=== PATIENT | female | born 1960 | race Caucasian/White ===

== ENCOUNTER → 2020-08-05 15:21 | Outpatient (CLI) | payer OTHER, SELFPAY ==
[2020-08-05 16:02] LABS: Basophils # 0.1 K/mm3 (0-0.2); Basophils % 0.5 % (0.1-2.0); Eosinophils # 0.2 K/mm3 (0.0-0.4); Eosinophils % 1.4 % (0.1-12.0); Hematocrit 50.3 % (37.0-47.0); Hemoglobin 16.1 g/dL (12.2-16.2); Lymphocytes % 27.1 % (10-50); Mean Corpuscular Hemoglobin 31.1 pg (27.0-31.2); Mean Corpuscular Volume 97.1 fl (81-99); Mean Platelet Volume 9.1 fl (7.4-10.4); Monocytes # 0.6 K/mm3 (0.1-1.0); Monocytes % 5.4 % (1.7-9.3); Neutrophils # 7.2 K/mm3 (1.8-7.8); Neutrophils % 65.6 % (37.0-80.0); Platelet Count 355 K/mm3 (142-424); Red Blood Count 5.17 M/mm3 (4.20-5.40); Red Cell Distribution Width 13.9 % (11.5-17.5); White Blood Count 10.9 K/mm3 (4.8-10.8)
[2020-08-05 16:15] LABS: Alanine Aminotransferase 30 U/L (12-78); Albumin Level 4.2 g/dl (3.5-5.0); Albumin/Globulin Ratio 1.4 (1.1-1.8); Alkaline Phosphatase 93 U/L (38-126); Anion Gap 14.5 mEq/L (5-15); Aspartate Amino Transferase 31 U/L (14-36); Bilirubin,Total 0.8 mg/dl (0.2-1.3); Blood Urea Nitrogen 23 mg/dl (7-17); Calcium 9.9 mg/dl (8.4-10.2); Carbon Dioxide 29 mmol/L (22.0-30.0); Chloride 99 mmol/L (98-107); Chol/HDL Ratio 4.8 (1-3.5); Cholesterol 275 mg/dl (140-200); Estimated Glomerular Filt Rate 86 ml/min (>60); GFR (African American) 104 ML/MIN (>60); Glucose 156 mg/dl (74-100); HDL Cholesterol 57 mg/dl (40-60); Potassium 4.5 mmoL/L (3.5-5.1); Sodium 138 mmol/L (136-145); Total Protein,Serum 7.2 g/dl (6.3-8.2); Triglycerides 371 mg/dl (30-150); VLDL Cholesterol 74 mg/dL (0-40)
[2020-08-05 16:26] LABS: Direct LDL Cholesterol 167.28 mg/dL (100-129)
[2020-08-05 16:31] LABS: 25-OH Vitamin D, Total 23.3 ng/mL (30-100)
[2020-08-05 16:32] LABS: T4 (Thyroxine) 11.3 ug/dl (5.53-11.0)
[2020-08-05 16:46] LABS: Thyroid Stimulating Hormone 2.86 uIU/mL (0.465-4.68)
[2020-08-05 17:22] LABS: Creatinine,Urine Random 116 mg/dL (Not Estab.)
[2020-08-05 17:25] LABS: Microalbumin/Creatinine Ratio 15.7
[2020-08-05 17:46] LABS: Hemoglobin A1C 7.8 % (4.0-6.0)
== END ==
PROVIDERS: Visit Provider Physician Assistant
DX: E11.9 Type 2 diabetes mellitus without complications (principal); Z76.89 Persons encountering health services in other specified circumstances; E55.9 Vitamin D deficiency, unspecified; Z79.84 Long term (current) use of oral hypoglycemic drugs; Z79.899 Other long term (current) drug therapy
CPT/HCPCS: 80053; 80061; 82043; 82306; 82570; 83036; 84436; 84443; 85025

== ENCOUNTER 2020-10-27 13:40 | Emergency (ER) | payer OTHER, MEDICAID, SELFPAY ==
[2020-10-27 14:09] VITALS: BP 137/79; PULSE 82; RESP 19; TEMP 37; O2SAT 98; BMI 37.8
--- NOTE | 2020-10-27 14:12 | CA_ITS ---
APPROVED REPORT Right Lower Extremity Venous Study for Venous Competence., DVT. Commercial Fisher: ISAAK Indications Lower Extremity Pain: to rule out dvt, PAIN IN RIGHT LATERAL THIGH Findings Color flow duplex of the right lower extremity demonstrates no evidence of superficial venous thrombophlebitis. All visualized right lower extremity veins are clear and compressible. Negative for DVT Conclusion Color flow duplex of the right lower extremity demonstrates no evidence of superficial venous thrombophlebitis. All visualized right lower extremity veins are clear and compressible. Negative for DVT Electronically signed by : Patrice Ball MD 10/27/2020 18:16:59
--- NOTE | 2020-10-27 14:12 | HMH.EDUTC ---
[facility] [place]ression: Leg pain Qualifiers: Laterality: right Qualified Code(s): M79.604 - Pain in right leg Disposition: Home, Self-Care Condition on Discharge: Good Instructions: DI for Leg Pain Additional Instructions: Make sure to follow up with your family Doctor for further evaluation and examination Return if needed Straight to ER if any life threatening symptoms Referrals: Marilyn Rao PA [Primary Care Provider] - As needed Time of Disposition: 15:13 Medical Decision Making - Arvind Inquiry Pt receiving controlled substance: No Arvind was queried for this patient: No Vital Signs: 10/27/20 14:09 Temperature 98.6 F Temperature Source Oral Pulse Rate [Right] 82 Respiratory Rate 19 Blood Pressure [Right Arm] 137/79 Blood Pressure Mean [Right Arm] 98 Blood Pressure Source [Right Arm] Automatic Cuff Blood Pressure Position [Right Arm] Sitting 02 Sat by Pulse Oximetry 98 Oxygen Delivery Method Room Air Orders (Tests/Meds): ORDERS Category Date Time Status CA venous doppler LE RT Stat Y 10/27/20 14:12 Ordered - US Data US Images: Lower Extremity ED US Reviewed: Yes: I have reviewed the patient's US results Preliminary Findings: Normal/NAD Findings Narrative: Negative for DVT negative for Superficial Venous Thrombophlebitis Medical Decision Narrative: Patient denies low back pain or any known injury does have some spider veins noted in right upper leg recommended follow up with patient PCP if symptoms continued and patient agreed Denies known injury [facility] [place] - General Stated complaint: Right leg pain Time Seen by Provider: 10/27/20 14:14 Mode of Arrival: Ambulatory Source of Information: Patient Limitations: No Limitations Description of Symptoms (Recalled from Triage Doc. by RN): pt states my right upper leg has a curning, tingling sensatoin off and on for four days. HEENT Symptoms (Recalled from RN notes): No Resp Symptoms (Recalled from RN notes): No Skin Symptoms (Recalled from RN notes): No MS Symptoms (Recalled from RN notes): Yes (upper right leg is having a burning and tingling sensation) Functional Status (Recalled from RN notes): na - History of Present Illness Provider Complaint: Patient states for the last 3-4 days she has been having a burning like pain with sharp electrical like pain in the side of right upper leg States that it has been hurting on and off and she was worried that she may have a blood clot so she came in to get it checked Patient denies back pain - Related Data Home Medications Medication Instructions Recorded Confirmed sumatriptan succinate 50 mg tablet 50 mg PO Q2H PRN 08/05/20 09/09/20 Previous Rx's Medication Instructions Recorded aspirin 81 mg tablet,delayed 81 mg PO DAILY #90 tab 08/05/20 release lisinopril 10 mg tablet 10 mg PO DAILY #90 tab 08/05/20 metformin 500 mg tablet 500 mg PO BID #180 tab 08/05/20 simvastatin 10 mg tablet 10 mg PO DAILY #90 tab 08/05/20 ergocalciferol (vitamin D2) 1,250 1,250 mcg PO WEEKLY #4 cap 08/06/20 mcg (50,000 unit) capsule blood sugar diagnostic See Rx Instructions .ROUTE 08/14/20 .MEDSUPPLY #100 each blood-glucose meter See Rx Instructions .ROUTE 08/14/20 .MEDSUPPLY #1 each azithromycin 250 mg tablet 250 mg PO QDAY 5 Days #6 tab 09/09/20 fluticasone propionate 50 1 spray INTRANASAL QDAY #15 ml 09/09/20 mcg/actuation nasal spray,suspension rimegepant 75 mg disintegrating 75 mg PO ONCE #8 tab 10/20/20 tablet Allergies Allergy/AdvReac Type Severity Reaction Status Date / Time No Known Allergies Allergy Verified 10/27/20 14:12 - Worker's Comp Is this a Worker's Comp case?: No [facility] History - Hepatitis A Screen Drug use history?: No High risk sexual behaviors?: No History of sexually transmitted infection?: No Currently employed?: No Childcare worker?: No Do you have indoor plumbing?: Yes Do you have electricity?: Yes Attestation statement::
[2020-10-27 15:15] VITALS: BP 132/80; PULSE 80; RESP 17; TEMP 36.6
== END 2020-10-27 15:15 | disposition home or self-care (01) ==
PROVIDERS: Emergency Provider Nurse Practitioner; PCP Physician Assistant
DX: M79.604 Pain in right leg (principal); E11.9 Type 2 diabetes mellitus without complications; I10 Essential (primary) hypertension; E78.5 Hyperlipidemia, unspecified; G43.909 Migraine, unspecified, not intractable, without status migrainosus; Z79.899 Other long term (current) drug therapy
CPT/HCPCS: 93971; 99202; G0463

== ENCOUNTER → 2020-12-14 13:29 | Outpatient (CLI) | payer OTHER, MEDICAID, SELFPAY ==
--- NOTE | 2020-12-14 13:32 | XR_ITS ---
PROCEDURE: XR HAND RT MIN 3V CLINICAL INDICATION: RT thumb pain COMPARISON: No exams were available for comparison FINDINGS: No fracture or dislocation. No lytic or blastic change. There is normal mineralization. The joint spaces are well-preserved. No significant degenerative/arthritic changes. No erosive changes evident. Other findings:None. IMPRESSION: No acute findings. Dictated by: Patrice Ball MD 12/14/2020 14:14 Patrice Ball MD in [place] 12/14/2020 14:14
--- NOTE | 2020-12-14 13:32 | XR_ITS ---
PROCEDURE: XR HAND LT MIN 3V CLINICAL INDICATION: RT thumb pain COMPARISON: No exams were available for comparison FINDINGS: No fracture or dislocation. No lytic or blastic change. There is normal mineralization. Minimal osteoarthritic changes are present at the 1st metacarpal-carpal joint.. Other findings:None. IMPRESSION: Minimal osteoarthritic change 1st metacarpal-carpal joint otherwise negative Dictated by: Patrice Ball MD 12/14/2020 14:15 Patrice Ball MD in [place] 12/14/2020 14:15
== END ==
PROVIDERS: PCP Physician Assistant; Visit Provider Orthopaedic Surgery
DX: M79.645 Pain in left finger(s) (principal); M79.644 Pain in right finger(s)
CPT/HCPCS: 73130

== ENCOUNTER 2020-12-28 13:34 | Emergency (ER) | payer OTHER, SELFPAY ==
[2020-12-28 13:34] VITALS: BP 146/74; PULSE 95; RESP 16; TEMP 36.8; O2SAT 98; BMI 35.2
--- NOTE | 2020-12-28 13:40 | XR_ITS ---
PROCEDURE: XR HIP LT 2-3V W/PELVIS CLINICAL INDICATION: fall Pain COMPARISON: No exams were available for comparison FINDINGS: No fracture or dislocation. Small lucency is present along the superior aspect of the left femoral neck toward the intertrochanteric region. This measures approximately 12 x 3 mm and may be due to an area of sparse bony trabeculation. Surgical clips are present in the central pelvic region overlying the left iliac fossa and in the right pelvic area. Small well-circumscribed areas of calcification present along the greater trochanter nonspecific and may be due to areas of ununited ossification centers. IMPRESSION: No acute finding. Dictated by: Patrice Ball MD 12/28/2020 15:12 Patrice Ball MD in [place] 12/28/2020 15:12
--- NOTE | 2020-12-28 13:40 | XR_ITS ---
PROCEDURE: XR ELBOW LT MIN 3V Left humerus. Left shoulder CLINICAL INDICATION: fall COMPARISON: CR XR HUMERUS LT from 12/28/2020 CR XR SHOULDER LT MIN 2V from 12/28/2020 FINDINGS: Left elbow: No acute fracture or dislocation. Small calcific densities are present along the medial epicondyle region well-circumscribed consistent old injuries or ununited ossification centers. Left humerus: No acute fracture or dislocation. Subacromial stenosis with some bony hypertrophy the greater tuberosity. Left shoulder: Mild osteoarthritic changes of the glenohumeral joint with slightly high-riding humeral head and with subacromial stenosis which may result in impingement symptomatology and rotator pathology. No acute fracture or dislocation. IMPRESSION: Degenerative changes, no acute finding.. Dictated by: Patrice Ball MD 12/28/2020 15:07 Patrice Ball MD in [place] 12/28/2020 15:07
--- NOTE | 2020-12-28 13:40 | XR_ITS ---
PROCEDURE: XR WRIST LT MIN 3V CLINICAL INDICATION: fall Pain COMPARISON: No exams were available for comparison FINDINGS: No fracture or dislocation. No lytic or blastic change. There is normal mineralization. The joint spaces are well-preserved. No significant degenerative/arthritic changes. No erosive changes evident. Other findings:None. IMPRESSION: No acute findings. Dictated by: Patrice Ball MD 12/28/2020 15:08 Patrice Ball MD in [place] 12/28/2020 15:08
--- NOTE | 2020-12-28 13:42 | PC.NURSE ---
Called lab for masood comp drug screen
--- NOTE | 2020-12-28 13:43 | PC.NURSE ---
pt had small wound on left elbow. c;eaned and bleeding controlled
--- NOTE | 2020-12-28 16:53 | HMH.EDFALL ---
ED Disposition Clinical Impression: Fall Disposition: Home, Self-Care Condition on Discharge: Fair Instructions: How to Prevent Falls Additional Instructions: Check elbows wrist shoulder humerus and hip x-rays and they are all within normal limits does not show any fracture you could have a sprain which will not be seen in x-rays Prescriptions: Cyclobenzaprine HCl [Cyclobenzaprine 7.5mg Tab] 7.5 mg PO TID #15 tab Transmission Status: Pending to [facility] methylPREDNISolone [Medrol 4mg tab] 4 mg PO DIRECTED #21 tab Transmission Status: Pending to [facility] Referrals: Provider,Referral, [Primary Care Provider] - Forms: Work/School Release Time of Disposition: 17:02 - Critical Care Critical Care Time: No Attestation: On 12/28/20, the high probability of a clinically significant, sudden or life threatening deterioration of the following system(s) required my full and direct attention, intervention and personal management. The time I documented below is in addition to time spent performing reported procedures but includes the following listed in this critical care notation. Medical Decision Making - Medical Records Medical records reviewed: Yes: I reviewed the patient's medical records. MR Comment: Reviewed patient's x-rays and x-rays of the elbow wrist shoulder humerus and hip are all within normal limits; is to discharge patient home with anti-inflammatory medications - Arvind Inquiry Pt receiving controlled substance: No Vital Signs: 12/28/20 13:34 Temperature 98.2 F Temperature Source Oral Pulse Rate [Right] 95 H Respiratory Rate 16 Blood Pressure [Right Arm] 146/74 H Blood Pressure Mean [Right Arm] 98 Blood Pressure Source [Right Arm] Automatic Cuff Blood Pressure Position [Right Arm] Sitting 02 Sat by Pulse Oximetry 98 Oxygen Delivery Method Room Air Fall HPI - General Chief Complaint: Fall Stated Complaint: fall Time Seen by Provider: 12/28/20 13:53 Mode of Arrival: Wheelchair Source of Information: Patient Limitations: No Limitations Description of Symptoms (Recalled from ER Triage Doc. by RN): pt was walking down the cuadra to go to the restroom when she slipped on wer floor and fell onto her left side. Pt c/o pain in the left shoulder/elbow/wrist and left hip. Denies any neck/head pain. Denies any LOC - History of Present Illness HPI Narrative: pt is an employee and was walking down the cuadra to go to the restroom when she slipped on wer floor and fell onto her left side. Pt c/o pain in the left shoulder/elbow/wrist and left hip. Denies any neck/head pain. Denies any LOC Onset (ago): minute(s) Fall from: standing Fall witnessed: no Place fall occurred: work Loss of consciousness: none Prolonged down time: no Symptoms prior to fall: none Context: tripped/slipped Location of injury: other (left elbow, wrist, Shoulder arm hip) Location of injury - extremities: Left: shoulder, arm, elbow Severity: moderate Severity scale (1-10): 4 Quality: sharp - Related Data Home Medications Medication Instructions Recorded Confirmed sumatriptan succinate 50 mg tablet 50 mg PO Q2H PRN 08/05/20 09/09/20 Previous Rx's Medication Instructions Recorded aspirin 81 mg tablet,delayed 81 mg PO DAILY #90 tab 08/05/20 release lisinopril 10 mg tablet 10 mg PO DAILY #90 tab 08/05/20 metformin 500 mg tablet 500 mg PO BID #180 tab 08/05/20 simvastatin 10 mg tablet 10 mg PO DAILY #90 tab 08/05/20 ergocalciferol (vitamin D2) 1,250 1,250 mcg PO WEEKLY #4 cap 08/06/20 mcg (50,000 unit) capsule blood sugar diagnostic See Rx Instructions .ROUTE 08/14/20 .MEDSUPPLY #100 each blood-glucose meter See Rx Instructions .ROUTE 08/14/20 .MEDSUPPLY #1 each azithromycin 250 mg tablet 250 mg PO QDAY 5 Days #6 tab 09/09/20 fluticasone propionate 50 1 spray INTRANASAL QDAY #15 ml 09/09/20 mcg/actuation nasal spray,suspension rimegepant 75 mg disintegrating 75 mg PO ONCE #8
--- NOTE | 2020-12-28 17:37 | PC.NURSE ---
prescriptions called into clinic pharmacy per pt request. while calling prescriptions pharmacist states they do not have flexeril 7.5mg tablets, notified ER MD of this. States to give pt flexeril 10 mg po 1 tablet TID #15 tablets, no refills.
[2020-12-28 17:46] VITALS: BP 149/75; PULSE 80; RESP 18; TEMP 36.8; O2SAT 99
== END 2020-12-28 17:44 | disposition home or self-care (01) ==
PROVIDERS: Emergency Provider Emergency Medicine
DX: S50.02XA Contusion of left elbow, initial encounter (principal); S40.012A Contusion of left shoulder, initial encounter; S70.02XA Contusion of left hip, initial encounter; W01.0XXA Fall on same level from slipping, tripping and stumbling without subsequent striking against object, initial encounter; Y92.69 Other specified industrial and construction area as the place of occurrence of the external cause; Y99.0 Civilian activity done for income or pay
CPT/HCPCS: 73030; 73060; 73080; 73110; 73502; 96372; 99282; J1040

== ENCOUNTER 2021-01-08 10:38 | Outpatient (RCR) | payer OTHER, SELFPAY | END 2021-01-08 11:24 | disposition home or self-care (01) | LOC: OT 10:38 | PROVIDERS: Visit Provider Orthopaedic Surgery | DX: M18.11 Unilateral primary osteoarthritis of first carpometacarpal joint, right hand (principal); M79.645 Pain in left finger(s); M79.644 Pain in right finger(s) | CPT/HCPCS: 97760 ==

== ENCOUNTER 2021-04-02 05:23 | Emergency (ER) | payer OTHER, MEDICAID, SELFPAY ==
[2021-04-02 05:34] VITALS: BP 143/76; PULSE 93; RESP 20; TEMP 37.8; O2SAT 97; BMI 39.4
--- NOTE | 2021-04-02 05:39 | HMH.EDGENADL ---
ED Disposition Clinical Impression: COVID-19 Disposition: Home, Self-Care Condition on Discharge: Good Instructions: DI for COVID-19 (Suspected or Confirmed ) Additional Instructions: Tylenol as needed for pain or fever. Off work for 10 days. Quarantine yourself. You are in a high risk group because of your diabetes and therefore you are a candidate for monoclonal antibody therapy. Contact your primary care provider to discuss monoclonal antibody therapy. Return to the emergency department if shortness of breath, extreme weakness, intractable vomiting. Prescriptions: Amoxicillin/Potassium Clav [Augmentin 875-125 Tablet] 1 tab PO Q12H #20 tab Transmission Status: Received by [facility] Referrals: Marilyn Rao PA [Primary Care Provider] - - Critical Care Critical Care Time: No Attestation: On , the high probability of a clinically significant, sudden or life threatening deterioration of the following system(s) required my full and direct attention, intervention and personal management. The time I documented below is in addition to time spent performing reported procedures but includes the following listed in this critical care notation. Medical Decision Making - Arvind Inquiry Pt receiving controlled substance: No Vital Signs: 04/02/21 05:34 Temperature 100.1 F H Temperature Source Oral Pulse Rate [Right] 93 H Respiratory Rate 20 Blood Pressure [Left Arm] 143/76 H Blood Pressure Mean [Left Arm] 98 Blood Pressure Source [Left Arm] Automatic Cuff Blood Pressure Position [Left Arm] Sitting 02 Sat by Pulse Oximetry 97 Oxygen Delivery Method Room Air - Lab Data Lab Results 04/02/21 05:35: SARS-CoV-2 (PCR) Detected A, Influenza A Untype (PCR) Not detected, Influenza Type B (PCR) Not detected Orders (Tests/Meds): ED MEDICATIONS Discontinued Medications Generic Name Dose Route Start Last Admin Trade Name Freq PRN Reason Stop Dose Admin Amoxicillin/Clavulanate Potassium 1 each 04/02/21 05:48 04/02/21 05:55 Amoxicillin/Pot Clavulan 500mg Tablet PO 04/02/21 05:49 1 each ONCE ONE Administration Protocol Medical Decision Narrative: Augmentin was transmitted to the patient's pharmacy, but her Covid test has returned positive and therefore I feel her symptoms are related to COVID-19 infection, I have advised her she does not need antibiotics. General Adult HPI - General Stated complaint: Earache,sinus pressure,nose bleeding,PEREZ Time Seen by Provider: 04/02/21 05:39 - History of Present Illness HPI narrative: Works in [employer] here. States that she has a sinus infection. 3-day history of sinus pain and pressure, drainage, right earache, nosebleed. Low-grade fever today. No known exposure to COVID-19. She has not been vaccinated against COVID-19 and has not had COVID-19. 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 She has a history of recurrent sinus infections and sinus surgery 2 years ago in [place]. - Related Data Previous Rx's Medication Instructions Recorded aspirin 81 mg tablet,delayed 81 mg PO DAILY #90 tab 08/05/20 release metformin 500 mg tablet 500 mg PO BID #180 tab 08/05/20 simvastatin 10 mg tablet 10 mg PO DAILY #90 tab 08/05/20 blood sugar diagnostic See Rx Instructions .ROUTE 08/14/20 .MEDSUPPLY #100 each blood-glucose meter See Rx Instructions .ROUTE 08/14/20 .MEDSUPPLY #1 each fluticasone propionate 50 1 spray INTRANASAL QDAY #15 ml 09/09/20 mcg/actuation nasal spray,suspension rimegepant 75 mg disintegrating 75 mg PO ONCE #8 tab 10/20/20 tablet ergocalciferol (vitamin D2) 1,250 50,000 unit PO QWEEK 90 Days #14 02/24/21 mcg (50,000 unit) capsule cap methylprednisolone 4 mg tablets in 4 mg PO PER PKG DIR 6 Days #21 tab 02/24/21 a dose pack lisinopril 10 mg tablet See Rx Instructions .ROUTE 03/04/21 .COMPLEX #90 tab Amoxicillin/Potassium Clav 1 tab
[2021-04-02 05:55] LABS: Influenza A, PCR Not Detected (NotDetected); Influenza B, PCR Not Detected (NotDetected)
[2021-04-02 06:17] LABS: Coronavirus 19, PCR Detected (NotDetected)
--- NOTE | 2021-04-02 06:25 | PC.NURSE ---
Positive COVID test called from [facility] in Lab, results given to Dr García
[2021-04-02 06:40] VITALS: BP 142/68; PULSE 94; RESP 22; TEMP 37.8; O2SAT 94
== END 2021-04-02 06:44 | disposition home or self-care (01) ==
LOC: ER 05:58
PROVIDERS: Emergency Provider Emergency Medicine; PCP Physician Assistant
DX: U07.1 COVID-19 (principal); E11.9 Type 2 diabetes mellitus without complications; Z79.899 Other long term (current) drug therapy
CPT/HCPCS: 99282; U0003

== ENCOUNTER 2021-04-09 08:07 | Outpatient (CLI) | payer OTHER, MEDICAID, SELFPAY ==
[2021-04-09 08:45] VITALS: BP 105/65; PULSE 89; RESP 16; TEMP 36.9; O2SAT 94
[2021-04-09 10:21] VITALS: BP 128/68; PULSE 85; RESP 16; TEMP 37.1; O2SAT 91
[2021-04-09 10:23] VITALS: BP 128/65; PULSE 85; RESP 16; TEMP 37.1; O2SAT 91
== END 2021-04-09 10:23 | disposition home or self-care (01) ==
PROVIDERS: PCP Physician Assistant; Visit Provider Physician Assistant
DX: U07.1 COVID-19 (principal)
CPT/HCPCS: 96365

== ENCOUNTER → 2021-04-29 10:41 | Outpatient (CLI) | payer OTHER, MEDICAID, SELFPAY ==
--- NOTE | 2021-04-29 10:42 | IR_ITS ---
PROCEDURE: IR FLUORO GUIDED NEEDLE PLACE CLINICAL INDICATION: RT 1ST CMC joint injection COMPARISON: CR XR WRIST LT MIN 3V from 12/28/2020 FINDINGS: Fluoroscopy time: 23 seconds Single image submitted with fluoroscopic image shows a needle present from the lateral approach overlying the 1st metacarpal-carpal junction IMPRESSION: S/p joint injection with fluoroscopic guidance Dictated by: Patrice Ball MD 04/29/2021 16:01 Patrice Ball MD in [place] 04/29/2021 16:01
--- NOTE | 2021-04-29 15:50 | P.PCN_ITS ---
[facility] Procedure Note Procedure Note:: Date of procedure: 04/29/2021 Patient was initially scheduled to have right first CMC joint injection under fluoroscopic guidance. However, today she also requested for repeat steroid injection to the de Quervain's tendon sheath. I have discussed the pros and cons of steroid injections. Patient previously had an in office injection and is aware of the risks involved. Patient is appropriately consented for the procedures. Preprocedure diagnosis: 1. First CMC joint arthritis, right wrist 2. De Quervain's tenosynovitis, right wrist Postprocedure diagnosis: Same Procedure performed: 1. Intra-articular corticosteroid injection, right first CMC joint 2. Local steroid injection, de Quervain's tendon sheath, right wrist Estimated blood loss-none Procedure note: Patient presented to radiology department for the procedure. Steroid injection first CMC joint right wrist: An informed consent was obtained after explaining the procedure, risks, benefits and alternatives. The skin was prepped in a sterile fashion with multiple chlorhexidine sticks. A combination of 3 mg of betamethasone and 2 cc of 0.5% Marcaine injected into the first carpometacarpal joint, with a 25-gauge needle under aseptic precautions, under fluoroscopic control. Sterile dressing was applied. Patient tolerated the procedure well and there were no immediate complications. Patient reported very good pain relief within a few minutes after the injection. Steroid injection into de Quervain's tendon sheath right wrist: An informed consent was obtained after explaining the procedure, risks, benefits and alternatives. The skin was prepped in a sterile fashion with multiple chlorhexidine sticks. A combination of 3 mg of betamethasone, 2 mL of 0.5 percent Marcaine injected into the first extensor compartment, with a 25-gauge needle under aseptic precautions. Sterile dressing was applied. Patient tolerated the procedure well and there were no immediate complications. Patient reported very good pain relief within a few minutes after the injection.
== END ==
PROVIDERS: PCP Physician Assistant; Visit Provider Orthopaedic Surgery
DX: M18.11 Unilateral primary osteoarthritis of first carpometacarpal joint, right hand (principal)
CPT/HCPCS: 20600; 77002

== ENCOUNTER → 2021-09-23 17:33 | Outpatient (CLI) | payer BC, SELFPAY ==
[2021-09-23 18:36] LABS: Basophils # 0.1 K/mm3 (0-0.2); Basophils % 1.8 % (0.1-2.0); Eosinophils # 0.2 K/mm3 (0.0-0.4); Eosinophils % 2.1 % (0.1-12.0); Lymphocytes # 2.1 K/mm3 (0.7-4.5); Lymphocytes % 26.7 % (10-50); Mean Corpuscular HGB Conc 31.7 g/dL (31.8-35.4); Mean Corpuscular Hemoglobin 30.6 pg (27.0-31.2); Mean Corpuscular Volume 96.4 fl (81-99); Mean Platelet Volume 8.5 fl (7.4-10.4); Monocytes # 0.4 K/mm3 (0.1-1.0); Monocytes % 4.7 % (1.7-9.3); Neutrophils # 5.1 K/mm3 (1.8-7.8); Neutrophils % 64.7 % (37.0-80.0); Platelet Count 376 K/mm3 (142-424); Red Blood Count 4.57 M/mm3 (4.20-5.40); Red Cell Distribution Width 13.4 % (11.5-17.5); White Blood Count 7.8 K/mm3 (4.8-10.8)
[2021-09-23 19:07] LABS: Hemoglobin A1C 9.1 % (4.0-6.0)
[2021-09-23 20:38] LABS: Alanine Aminotransferase 31 U/L (12-78); Albumin Level 4.5 g/dl (3.5-5.0); Albumin/Globulin Ratio 1.7 (1.1-1.8); Alkaline Phosphatase 98 U/L (38-126); Anion Gap 15.2 mEq/L (5-15); Aspartate Amino Transferase 31 U/L (14-36); Bilirubin,Total 0.4 mg/dl (0.2-1.3); Blood Urea Nitrogen 28 mg/dl (7-17); Calcium 9.7 mg/dl (8.4-10.2); Carbon Dioxide 26 mmol/L (22.0-30.0); Chloride 100 mmol/L (98-107); Chol/HDL Ratio 5.3 (1-3.5); Cholesterol 223 mg/dl (140-200); Estimated Glomerular Filt Rate 103 ml/min (>60); GFR (African American) 124 ML/MIN (>60); Globulin 2.6 g/dL (1.3-3.2); Glucose 208 mg/dl (74-100); HDL Cholesterol 42 mg/dl (40-60); Potassium 4.2 mmoL/L (3.5-5.1); Sodium 137 mmol/L (136-145); Total Protein,Serum 7.1 g/dl (6.3-8.2); Triglycerides 370 mg/dl (30-150); VLDL Cholesterol 74 mg/dL (0-40)
[2021-09-23 20:50] LABS: Direct LDL Cholesterol 129.09 mg/dL (100-129)
[2021-09-23 20:55] LABS: Free T4 (Free Thyroxine) 1.28 ng/dl (0.78-2.19)
[2021-09-23 20:56] LABS: 25-OH Vitamin D, Total 52.4 ng/mL (30-100)
[2021-09-23 21:09] LABS: Thyroid Stimulating Hormone 1.35 uIU/mL (0.465-4.68)
== END ==
PROVIDERS: Visit Provider Physician Assistant
DX: E03.9 Hypothyroidism, unspecified (principal); E11.9 Type 2 diabetes mellitus without complications; R53.83 Other fatigue; K59.00 Constipation, unspecified; E66.9 Obesity, unspecified; Z68.37 Body mass index [BMI] 37.0-37.9, adult; Z79.84 Long term (current) use of oral hypoglycemic drugs
CPT/HCPCS: 80053; 80061; 82306; 83036; 84439; 84443; 85025

== ENCOUNTER → 2021-12-31 13:24 | Outpatient (CLI) | payer BC, SELFPAY ==
--- NOTE | 2021-12-31 13:32 | XR_ITS ---
FINAL REPORT CLINICAL HISTORY: rt hand pain FINDINGS: AP, lateral and oblique views of the right hand were obtained. Comparison is made to an exam dated December 14, 2020. There is no acute fracture or dislocation. Degenerative joint disease is most pronounced at the 1st CMC joint. The soft tissues are normal. IMPRESSION: Degenerative joint disease most pronounced at the 1st CMC joint. Reviewed, Interpreted and Dictated by Jessica Arndt MD Transcribed by Joaquim Torres Authenticated by Jessica Arndt MD on 12/31/2021 03:43:13 PM [facility]
== END ==
PROVIDERS: PCP Physician Assistant; Visit Provider Orthopaedic Surgery
DX: M79.641 Pain in right hand (principal)
CPT/HCPCS: 73130

== ENCOUNTER → 2022-08-24 11:27 | Outpatient (CLI) | payer BC, SELFPAY ==
[2022-08-23 15:22] LABS: Basophils # 0.1 K/mm3 (0-0.2); Basophils % 0.8 % (0.1-2.0); Eosinophils # 0.3 K/mm3 (0.0-0.4); Eosinophils % 3.5 % (0.1-12.0); Hematocrit 44.4 % (37.0-47.0); Hemoglobin 14.3 g/dL (12.2-16.2); Lymphocytes # 2.1 K/mm3 (0.7-4.5); Lymphocytes % 26.2 % (10-50); Mean Corpuscular HGB Conc 32.2 g/dL (31.8-35.4); Mean Corpuscular Hemoglobin 30.5 pg (27.0-31.2); Mean Corpuscular Volume 94.6 fl (81-99); Mean Platelet Volume 9.4 fl (7.4-10.4); Monocytes # 0.3 K/mm3 (0.1-1.0); Monocytes % 4.2 % (1.7-9.3); Neutrophils # 5.2 K/mm3 (1.8-7.8); Neutrophils % 65.3 % (37.0-80.0); Platelet Count 371 K/mm3 (142-424); Red Blood Count 4.69 M/mm3 (4.20-5.40); Red Cell Distribution Width 13.7 % (11.5-17.5)
[2022-08-23 15:40] LABS: Alanine Aminotransferase 34 U/L (12-78); Albumin Level 4.3 g/dl (3.5-5.0); Albumin/Globulin Ratio 1.5 (1.1-1.8); Alkaline Phosphatase 89 U/L (38-126); Anion Gap 16.2 mEq/L (5-15); Aspartate Amino Transferase 32 U/L (14-36); Bilirubin,Total 0.6 mg/dl (0.2-1.3); Blood Urea Nitrogen 18 mg/dl (7-17); Carbon Dioxide 23 mmol/L (22.0-30.0); Chloride 106 mmol/L (98-107); Cholesterol 229 mg/dl (140-200); Estimated Glomerular Filt Rate 86 ml/min (>60); GFR (African American) 104 ML/MIN (>60); Globulin 2.8 g/dL (1.3-3.2); Glucose 208 mg/dl (74-100); HDL Cholesterol 46 mg/dl (40-60); Potassium 4.2 mmoL/L (3.5-5.1); Sodium 141 mmol/L (136-145); Total Protein,Serum 7.1 g/dl (6.3-8.2); Triglycerides 226 mg/dl (30-150); VLDL Cholesterol 45 mg/dL (0-40)
[2022-08-23 15:52] LABS: Direct LDL Cholesterol 131.56 mg/dL (100-129)
[2022-08-23 15:58] LABS: 25-OH Vitamin D, Total 40.1 ng/mL (30-100)
[2022-08-23 16:06] LABS: Microalbumin/Creatinine Ratio 101.4
[2022-08-23 16:06] LABS: Hemoglobin A1C 7.3 % (4.0-6.0)
[2022-08-23 16:12] LABS: Thyroid Stimulating Hormone 2.25 uIU/mL (0.465-4.68)
[2022-08-23 16:18] LABS: Creatinine,Urine Random 156 mg/dL (Not Estab.)
== END ==
PROVIDERS: PCP Physician Assistant; Visit Provider Physician Assistant
DX: R10.30 Lower abdominal pain, unspecified (principal); E11.9 Type 2 diabetes mellitus without complications; E66.9 Obesity, unspecified; Z68.37 Body mass index [BMI] 37.0-37.9, adult; Z79.84 Long term (current) use of oral hypoglycemic drugs
CPT/HCPCS: 80053; 80061; 82043; 82306; 82570; 83036; 84443; 85025; 87086; 87088; 87186

== ENCOUNTER → 2022-09-09 11:00 | Outpatient (CLI) | payer BC, SELFPAY | PROVIDERS: PCP Student in an Organized Health Care Education/Training Program; Visit Provider Student in an Organized Health Care Education/Training Program | DX: U07.1 COVID-19 (principal); J32.9 Chronic sinusitis, unspecified | CPT/HCPCS: 87070; C9803; U0003; U0005 ==

== ENCOUNTER → 2022-11-16 23:00 | Outpatient (CLI) | payer BC, SELFPAY ==
[2022-11-16 18:48] LABS: Basophils # 0.1 K/mm3 (0-0.2); Basophils % 1.4 % (0.1-2.0); Eosinophils # 0.3 K/mm3 (0.0-0.4); Eosinophils % 2.9 % (0.1-12.0); Hematocrit 47.9 % (37.0-47.0); Hemoglobin 15.1 g/dL (12.2-16.2); Lymphocytes # 2.6 K/mm3 (0.7-4.5); Lymphocytes % 25.9 % (10-50); Mean Corpuscular HGB Conc 31.6 g/dL (31.8-35.4); Mean Corpuscular Hemoglobin 30.3 pg (27.0-31.2); Mean Platelet Volume 8.5 fl (7.4-10.4); Monocytes # 0.5 K/mm3 (0.1-1.0); Monocytes % 4.5 % (1.7-9.3); Neutrophils # 6.6 K/mm3 (1.8-7.8); Neutrophils % 65.3 % (37.0-80.0); Platelet Count 430 K/mm3 (142-424); Red Blood Count 4.99 M/mm3 (4.20-5.40); Red Cell Distribution Width 13.6 % (11.5-17.5); White Blood Count 10.2 K/mm3 (4.8-10.8)
[2022-11-16 19:15] LABS: Alanine Aminotransferase 25 U/L (12-78); Albumin Level 4.9 g/dl (3.5-5.0); Albumin/Globulin Ratio 1.6 (1.1-1.8); Alkaline Phosphatase 94 U/L (38-126); Anion Gap 14.3 mEq/L (5-15); Aspartate Amino Transferase 27 U/L (14-36); Bilirubin,Total 0.4 mg/dl (0.2-1.3); Blood Urea Nitrogen 27 mg/dl (7-17); Calcium 9.3 mg/dl (8.4-10.2); Carbon Dioxide 29 mmol/L (22.0-30.0); Chloride 100 mmol/L (98-107); Chol/HDL Ratio 4.5 (1-3.5); Cholesterol 216 mg/dl (140-200); Estimated Glomerular Filt Rate 85 ml/min (>60); GFR (African American) 103 ML/MIN (>60); Globulin 3.1 g/dL (1.3-3.2); Glucose 81 mg/dl (74-100); HDL Cholesterol 48 mg/dl (40-60); Potassium 4.3 mmoL/L (3.5-5.1); Sodium 139 mmol/L (136-145); Triglycerides 370 mg/dl (30-150); VLDL Cholesterol 74 mg/dL (0-40)
[2022-11-16 19:25] LABS: Direct LDL Cholesterol 116.81 mg/dL (100-129)
[2022-11-16 19:32] LABS: 25-OH Vitamin D, Total 67.4 ng/mL (30-100)
[2022-11-16 19:44] LABS: Thyroid Stimulating Hormone 1.61 uIU/mL (0.465-4.68)
[2022-11-16 20:30] LABS: Hemoglobin A1C 6.3 % (4.0-6.0)
== END ==
PROVIDERS: PCP Physician Assistant; Visit Provider Physician Assistant
DX: E11.9 Type 2 diabetes mellitus without complications (principal); E66.9 Obesity, unspecified; Z68.36 Body mass index [BMI] 36.0-36.9, adult; Z79.84 Long term (current) use of oral hypoglycemic drugs; Z79.899 Other long term (current) drug therapy
CPT/HCPCS: 80053; 80061; 82306; 83036; 84443; 85025

== ENCOUNTER → 2023-02-14 11:00 | Outpatient (CLI) | payer BC, SELFPAY ==
[2023-02-13 18:34] LABS: Basophils % 0.4 % (0.1-2.0); Eosinophils # 0.8 K/mm3 (0.0-0.4); Eosinophils % 9.3 % (0.1-12.0); Hematocrit 45.5 % (37.0-47.0); Hemoglobin 14.5 g/dL (12.2-16.2); Lymphocytes # 1.8 K/mm3 (0.7-4.5); Lymphocytes % 20.8 % (10-50); Mean Corpuscular HGB Conc 31.9 g/dL (31.8-35.4); Mean Corpuscular Hemoglobin 29.4 pg (27.0-31.2); Mean Corpuscular Volume 92.3 fl (81-99); Mean Platelet Volume 9.4 fl (7.4-10.4); Monocytes # 0.4 K/mm3 (0.1-1.0); Monocytes % 4.7 % (1.7-9.3); Neutrophils # 5.7 K/mm3 (1.8-7.8); Neutrophils % 64.8 % (37.0-80.0); Platelet Count 340 K/mm3 (142-424); Red Blood Count 4.94 M/mm3 (4.20-5.40); Red Cell Distribution Width 14.2 % (11.5-17.5); White Blood Count 8.7 K/mm3 (4.8-10.8)
[2023-02-13 18:38] LABS: Alanine Aminotransferase 29 U/L (12-78); Albumin Level 4.1 g/dl (3.5-5.0); Albumin/Globulin Ratio 1.6 (1.1-1.8); Alkaline Phosphatase 92 U/L (38-126); Aspartate Amino Transferase 30 U/L (14-36); Bilirubin,Total 0.6 mg/dl (0.2-1.3); Blood Urea Nitrogen 18 mg/dl (7-17); Calcium 9.1 mg/dl (8.4-10.2); Carbon Dioxide 24 mmol/L (22.0-30.0); Chloride 104 mmol/L (98-107); Chol/HDL Ratio 4.2 (1-3.5); Cholesterol 185 mg/dl (140-200); Estimated Glomerular Filt Rate 85 ml/min (>60); GFR (African American) 103 ML/MIN (>60); Globulin 2.6 g/dL (1.3-3.2); Glucose 170 mg/dl (74-100); HDL Cholesterol 44 mg/dl (40-60); Sodium 141 mmol/L (136-145); Total Protein,Serum 6.7 g/dl (6.3-8.2); Triglycerides 229 mg/dl (30-150); VLDL Cholesterol 46 mg/dL (0-40)
[2023-02-13 18:57] LABS: Hemoglobin A1C 6.2 % (4.0-6.0)
[2023-02-13 18:58] LABS: Direct LDL Cholesterol 94.15 mg/dL (100-129)
[2023-02-13 19:06] LABS: 25-OH Vitamin D, Total 57.7 ng/mL (30-100)
== END ==
PROVIDERS: PCP Physician Assistant; Visit Provider Physician Assistant
DX: E11.9 Type 2 diabetes mellitus without complications (principal); E66.9 Obesity, unspecified; Z68.35 Body mass index [BMI] 35.0-35.9, adult; Z79.899 Other long term (current) drug therapy
CPT/HCPCS: 80053; 80061; 82306; 83036; 84443; 85025

== ENCOUNTER → 2023-08-09 14:38 | Outpatient (CLI) | payer OTHER, SELFPAY ==
[2023-08-09 12:25] LABS: Basophils # 0.1 K/mm3 (0-0.2); Basophils % 0.5 % (0.1-2.0); Eosinophils # 0.3 K/mm3 (0.0-0.4); Eosinophils % 2.9 % (0.1-12.0); Hematocrit 45.4 % (37.0-47.0); Hemoglobin 15.1 g/dL (12.2-16.2); Lymphocytes # 2.2 K/mm3 (0.7-4.5); Lymphocytes % 18.1 % (10-50); Mean Corpuscular HGB Conc 33.3 g/dL (31.8-35.4); Mean Corpuscular Hemoglobin 31.2 pg (27.0-31.2); Mean Corpuscular Volume 93.9 fl (81-99); Mean Platelet Volume 8.5 fl (7.4-10.4); Monocytes # 0.4 K/mm3 (0.1-1.0); Monocytes % 3.8 % (1.7-9.3); Neutrophils # 8.9 K/mm3 (1.8-7.8); Neutrophils % 74.8 % (37.0-80.0); Platelet Count 405 K/mm3 (142-424); Red Blood Count 4.84 M/mm3 (4.20-5.40); Red Cell Distribution Width 13.5 % (11.5-17.5); White Blood Count 11.9 K/mm3 (4.8-10.8)
[2023-08-09 12:29] LABS: Chloride 105 mmol/L (98-107); Potassium 4.3 mmoL/L (3.5-5.1); Sodium 139 mmol/L (136-145)
[2023-08-09 12:32] LABS: Alanine Aminotransferase 32 U/L (12-78); Albumin Level 4.5 g/dl (3.5-5.0); Albumin/Globulin Ratio 1.5 (1.1-1.8); Alkaline Phosphatase 113 U/L (38-126); Anion Gap 12.3 mEq/L (5-15); Aspartate Amino Transferase 30 U/L (14-36); Bilirubin,Total 0.5 mg/dl (0.2-1.3); Blood Urea Nitrogen 19 mg/dl (7-17); Calcium 9.2 mg/dl (8.4-10.2); Carbon Dioxide 26 mmol/L (22.0-30.0); Cholesterol 151 mg/dl (140-200); Estimated Glomerular Filt Rate 102 ml/min (>60); GFR (African American) 123 ML/MIN (>60); Glucose 128 mg/dl (74-100); Total Protein,Serum 7.5 g/dl (6.3-8.2); Triglycerides 116 mg/dl (30-150); VLDL Cholesterol 23 mg/dL (0-40)
[2023-08-09 12:33] LABS: Chol/HDL Ratio 3.7 (1-3.5); HDL Cholesterol 41 mg/dl (40-60)
[2023-08-09 12:48] LABS: Direct LDL Cholesterol 90.37 mg/dL (100-129)
[2023-08-09 13:04] LABS: Thyroid Stimulating Hormone 1.06 uIU/mL (0.465-4.68)
[2023-08-09 13:10] LABS: 25-OH Vitamin D, Total 77.4 ng/mL (30-100)
[2023-08-09 13:55] LABS: Hemoglobin A1C 6.3 % (4.0-6.0)
== END ==
PROVIDERS: PCP Physician Assistant; Visit Provider Physician Assistant
DX: E11.9 Type 2 diabetes mellitus without complications (principal); Z79.84 Long term (current) use of oral hypoglycemic drugs; Z79.899 Other long term (current) drug therapy
CPT/HCPCS: 80053; 80061; 82306; 83036; 84443; 85025

== ENCOUNTER 2023-10-18 07:59 | Emergency (ER) | payer OTHER, SELFPAY ==
[2023-10-18 08:13] VITALS: BP 136/78; PULSE 64; RESP 16; TEMP 36.7; O2SAT 97; BMI 34.7
--- NOTE | 2023-10-18 08:26 | EXP.UTC ---
Discharge Plan Disposition Patient Disposition: Home, Self-Care Condition: Good Prescriptions Prescriptions: New amoxicillin 500 mg capsule 500 mg PO TID 7 Days Qty: 21 0RF No Action benzonatate 200 mg capsule 200 mg PO TID PRN (Reason: cough) 10 Days Qty: 30 0RF prednisone 20 mg tablet 20 mg PO BID Qty: 10 0RF Rx Instructions: administer with food or milk doxycycline hyclate 100 mg tablet 100 mg PO BID Qty: 20 0RF (DME) OneTouch Ultra Test Strip See Rx Instructions .ROUTE .COMPLEX Qty: 100 12RF Dose Instruction: USE TO TEST BLOOD GLUCOSE THREE TIMES DAILY DIRECTED Rx Instructions: USE TO TEST BLOOD GLUCOSE THREE TIMES DAILY DIRECTED (DME) pen needle, diabetic [Comfort EZ Pen [place]] 32 gauge x 5/32 needle See Rx Instructions .Route Qty: 100 0RF Rx Instructions: daily aspirin 81 mg tablet,delayed release (DR/EC) 81 mg PO DAILY Qty: 90 3RF Farxiga 5 mg tablet 5 mg PO DAILY Qty: 90 3RF ergocalciferol (vitamin D2) 1,250 mcg (50,000 unit) capsule 50,000 unit PO QWEEK 90 Days Qty: 14 3RF glipizide 10 mg tablet extended release 24hr 10 mg PO DAILY Qty: 90 3RF Trulicity 1.5 mg/0.5 mL pen injector See Rx Instructions .ROUTE .COMPLEX Qty: 2 12RF Dose Instruction: ADMINISTER 1.5 MG( 0.5ML) UNDER THE SKIN WEEKLY Rx Instructions: ADMINISTER 1.5 MG( 0.5ML) UNDER THE SKIN WEEKLY lisinopril 10 mg tablet See Rx Instructions .ROUTE .COMPLEX Qty: 90 0RF Dose Instruction: Take 1 tablet by mouth once daily Rx Instructions: Take 1 tablet by mouth once daily rosuvastatin 10 mg tablet See Rx Instructions .ROUTE .COMPLEX Qty: 90 0RF Dose Instruction: TAKE 1 TABLET BY MOUTH EVERY DAY AT BEDTIME Rx Instructions: TAKE 1 TABLET BY MOUTH EVERY DAY AT BEDTIME Referrals Follow up/Referrals: Marilyn Rao PA [Primary Care Provider] - See instructions Activity Restrictions/Add. Instructions Additional Instructions/Restrictions: Take medication as prescribed Follow up with your Family Doctor if no improvement or any worsening of symptoms Over the counter Debrox may help clear wax from your ears Return if needed Clinical Impressions Clinical Impression: Otitis media Qualifiers: Otitis media type: unspecified Laterality: left Qualified Code(s): H66.92 - Otitis media, unspecified, left ear Impacted ear wax Qualifiers: Laterality: right Qualified Code(s): H61.21 - Impacted cerumen, right ear Instructions Patient Instructions: DI for Cerumen Impaction, Middle Ear Infection, Amoxicillin Discharge ED Provider: Erin Franco [facility] HPI General Stated complaint: pain in R ear, hard time hearing Mode of Arrival: Ambulatory Source of Information: Patient Limitations: No Limitations Time Seen by Provider: 10/18/23 08:26 Description of Symptoms (Recalled from Triage Doc. by RN): Patient complaint of right ear being clogged and having trouble hearing out of it for a couple of weeks. Also complains of left ear pain. HEENT Symptoms (Recalled from RN notes): Yes Resp Symptoms (Recalled from RN notes): No Skin Symptoms (Recalled from RN notes): No MS Symptoms (Recalled from RN notes): No Functional Status (Recalled from RN notes): wnl History of Present Illness Provider Complaint: Patient states that she has been having pain in her left ear and feeling like her right ear is clogged up for about 2 weeks and not able to hear out of it States that today it was bothering her worse so she came in to get it checked Related Data Previous Rx's Medication Instructions Recorded blood sugar diagnostic (OneTouch #100 strips 02/24/23 Ultra Test strips) pen needle, diabetic 32 gauge x #100 ea 04/26/23/32 (Comfort EZ Pen [place]) aspirin 81 mg tablet,delayed 81 mg PO DAILY #90 tabs 05/02/23 release dapagliflozin propanediol 5 mg 5 mg PO DAILY #90 tabs 05/02/23 tablet (Farxiga) ergocalciferol (vitamin D2) 1,250 50,000 unit PO QWEEK 90 days #14 05/02/23 mcg (50,000 unit) capsule caps glipizide 10 mg tablet, extended 10 mg PO DAILY #90 tabs 05/02/23 release 24 hr dulaglutide 1.5 mg/0.5 mL See Rx Instructions .Route 06/03/23 subcutaneous pen injector .COMPLEX #2 mL (Trulicity) benzonatate 200 mg capsule 200 mg PO TID PRN cough 10 days 08/09/23 #30 caps doxycycline hyclate 100 mg tablet 100 mg PO BID #20 tabs 08/09/23 prednisone 20 mg tablet 20 mg PO BID #10 tabs 08/09/23 lisinopril 10 mg tablet See Rx Instructions .Route 09/22/23 .COMPLEX #90 tabs rosuvastatin 10 mg tablet See Rx Instructions .Route 10/16/23 .COMPLEX #90 tabs amoxicillin 500 mg capsule 500 mg PO TID 7 days #21 caps 10/18/23 Allergies Allergy/AdvReac Type Severity Reaction Status Date / Time No Known Allergies Allergy Verified 08/09/23 09:03 Worker's Comp Is this a Worker's Comp case?: No [facility] Disclaimer: The information contained in this section may have been updated after the patient was seen, as this information can be updated by other users. Medical History Depression Diabetes Social History Smoking Status: Never smoker alcohol intake: never substance use type: denies use current occupational status: employed Travel in the last 8 weeks: None household members: spouse, family and children housing: house ROS Obtained: Yes All systems reviewed & no additional complaints except as documented and Yes Systems reviewed as appropriate & no additional complaints except as documented Constitutional Constitutional: Reports system reviewed and no additional complaints, except as documented and Reports as per HPI Eyes Eyes: Reports system reviewed and no additional complaints, except as documented and Reports as per HPI ENT Ears, Nose, Mouth, and Throat: Reports system reviewed and no additional complaints, except as documented, Reports as per HPI and Reports otalgia Cardiovascular Cardiovascular: Reports system reviewed and no additional complaints, except as documented and Reports as per HPI Respiratory Respiratory: Reports system reviewed and no additional complaints, except as documented and Reports as per HPI Physical Exam General General appearance: alert and in no apparent distress ENT ENT exam: Present mucous membranes moist Expanded ENT Exam TM/Canal exam: Left TM: erythema and loss of landmarks and Right TM: cerumen impaction Respiratory Respiratory exam: Present normal lung sounds bilaterally; Absent respiratory distress or wheezes Cardiovascular Cardiovascular exam: Present regular rate, normal rhythm and normal heart sounds Abdominal Exam Abdominal exam: Present soft and normal bowel sounds; Absent distention or tenderness Neurological Exam Neurological exam: Present alert, oriented X3 and normal gait Medical Decision Making Arvind Inquiry Pt receiving controlled substance: No Arvind was queried for this patient: No Vital Signs: 10/18/23 08:13 Temperature 98.0 F Temperature Source Oral Pulse Rate [Radial] 64 Respiratory Rate 16 Blood Pressure [Right Arm] 136/78 Blood Pressure Mean [Right Arm] 97 Blood Pressure Source [Right Arm] Automatic Cuff Blood Pressure Position [Right Arm] Sitting 02 Sat by Pulse Oximetry 97 Oxygen Delivery Method Room Air Procedures Ear Wax Removal Right Ear: Cerumenolytic Used: other Results: Re-examined: cerumen removed completely TM Examination: TM(s) intact, normal appearance Ear Canal Exam: atraumatic Patient Tolerated Procedure: well and no complications Complications: no problems Technique: ear canal irrigated
[2023-10-18 08:53] VITALS: BP 136/78; PULSE 64; RESP 16; TEMP 36.7; O2SAT 97
== END 2023-10-18 08:54 | disposition home or self-care (01) ==
PROVIDERS: Emergency Provider Nurse Practitioner; PCP Physician Assistant
DX: H66.92 Otitis media, unspecified, left ear (principal); H61.21 Impacted cerumen, right ear; H92.01 Otalgia, right ear
CPT/HCPCS: 69209; 99213; 99214; G0463

== ENCOUNTER 2023-11-07 12:45 | Outpatient (CLI) | payer OTHER, SELFPAY ==
[2023-11-07 12:52] LABS: Basophils # 0.1 K/mm3 (0-0.2); Basophils % 0.6 % (0.1-2.0); Eosinophils # 0.3 K/mm3 (0.0-0.4); Eosinophils % 3.7 % (0.1-12.0); Hematocrit 43.7 % (37.0-47.0); Hemoglobin 14.2 g/dL (12.2-16.2); Lymphocytes # 1.9 K/mm3 (0.7-4.5); Lymphocytes % 20.9 % (10-50); Mean Corpuscular HGB Conc 32.5 g/dL (31.8-35.4); Mean Corpuscular Hemoglobin 32.1 pg (27.0-31.2); Mean Corpuscular Volume 98.6 fl (81-99); Mean Platelet Volume 8.7 fl (7.4-10.4); Monocytes # 0.4 K/mm3 (0.1-1.0); Monocytes % 3.9 % (1.7-9.3); Neutrophils # 6.5 K/mm3 (1.8-7.8); Neutrophils % 70.8 % (37.0-80.0); Platelet Count 316 K/mm3 (142-424); Red Blood Count 4.43 M/mm3 (4.20-5.40); Red Cell Distribution Width 14.5 % (11.5-17.5); White Blood Count 9.2 K/mm3 (4.8-10.8)
[2023-11-07 13:29] LABS: 25-OH Vitamin D, Total 55.4 ng/mL (30-100)
[2023-11-07 13:49] LABS: Hemoglobin A1C 6.6 % (4.0-6.0)
[2023-11-07 15:31] LABS: Alanine Aminotransferase 28 U/L (12-78); Albumin Level 4.1 g/dl (3.5-5.0); Albumin/Globulin Ratio 1.6 (1.1-1.8); Alkaline Phosphatase 93 U/L (38-126); Anion Gap 14.1 mEq/L (5-15); Aspartate Amino Transferase 30 U/L (14-36); Bilirubin,Total 0.7 mg/dl (0.2-1.3); Blood Urea Nitrogen 20 mg/dl (7-17); Calcium 9.3 mg/dl (8.4-10.2); Carbon Dioxide 22 mmol/L (22.0-30.0); Chloride 107 mmol/L (98-107); Chol/HDL Ratio 4.4 (1-3.5); Cholesterol 177 mg/dl (140-200); Estimated Glomerular Filt Rate 102 ml/min (>60); GFR (African American) 123 ML/MIN (>60); Globulin 2.5 g/dL (1.3-3.2); Glucose 168 mg/dl (74-100); HDL Cholesterol 40 mg/dl (40-60); Potassium 4.1 mmoL/L (3.5-5.1); Sodium 139 mmol/L (136-145); Total Protein,Serum 6.6 g/dl (6.3-8.2); Triglycerides 250 mg/dl (30-150); VLDL Cholesterol 50 mg/dL (0-40)
[2023-11-07 15:42] LABS: Direct LDL Cholesterol 92.14 mg/dL (100-129)
== END 2023-11-07 23:59 ==
LOC: LAB.DROPOF 12:45
PROVIDERS: PCP Physician Assistant; Visit Provider Physician Assistant
DX: E11.9 Type 2 diabetes mellitus without complications (principal); Z79.899 Other long term (current) drug therapy
CPT/HCPCS: 80053; 80061; 82306; 83036; 84443; 85025

== ENCOUNTER 2023-11-20 15:15 | Inpatient (IN) | payer OTHER, SELFPAY ==
[2023-11-20] VITALS (7 sets, daily range): BP systolic 107–132; BP diastolic 61–70; PULSE 84–108; RESP 17–18; TEMP 36.6–36.8; O2SAT 95–98; BMI 36.0; BMI 36.1
--- NOTE | 2023-11-20 15:25 | XR_ITS ---
PROCEDURE INFORMATION: Exam: XR Chest Exam date and time: 11/20/2023 4:10 PM Age: 63 years old Clinical indication: Other: Pre syncopy; Additional info: Pre syncope TECHNIQUE: Imaging protocol: Radiologic exam of the chest. Views: 1 view. COMPARISON: No relevant prior images. FINDINGS: Lungs: Lungs are clear. No consolidation. Pleural spaces: No pleural effusion. No pneumothorax. Heart/Mediastinum: Cardiomediastinal silhouette is normal. Bones/joints: No acute abnormality. IMPRESSION: No acute cardiopulmonary disease.
--- NOTE | 2023-11-20 15:29 | ECG_ITS ---
APPROVED REPORT Exam: Resting ECG HR:108 bpm ECG Measurements Heart Rate 108 AXES VA 164 P 58 QRSd 85 QRS 41 QT 336 T 57 QTc 399 Conclusion SINUS TACHYCARDIA ABNORMAL RHYTHM ECG Electronically signed by : GARTH LORD, 11/21/2023 00:48:34
--- NOTE | 2023-11-20 15:31 | PC.NURSE ---
RT notified of VBG
[2023-11-20 15:34] LABS: Basophils # 0.1 K/mm3 (0-0.2); Basophils % 0.6 % (0.1-2.0); Eosinophils # 0.2 K/mm3 (0.0-0.4); Eosinophils % 1.1 % (0.1-12.0); Hematocrit 36.4 % (37.0-47.0); Hemoglobin 11.6 g/dL (12.2-16.2); Lymphocytes # 2.7 K/mm3 (0.7-4.5); Lymphocytes % 14.5 % (10-50); Mean Corpuscular HGB Conc 31.8 g/dL (31.8-35.4); Mean Corpuscular Volume 100.6 fl (81-99); Mean Platelet Volume 8.9 fl (7.4-10.4); Monocytes # 0.6 K/mm3 (0.1-1.0); Monocytes % 3.3 % (1.7-9.3); Neutrophils # 14.8 K/mm3 (1.8-7.8); Neutrophils % 80.5 % (37.0-80.0); Platelet Count 444 K/mm3 (142-424); Red Blood Count 3.62 M/mm3 (4.20-5.40); Red Cell Distribution Width 14.7 % (11.5-17.5); White Blood Count 18.3 K/mm3 (4.8-10.8)
[2023-11-20 15:36] LABS: MANUAL DIFFERENTIAL MANUAL DIFFERENTIAL (MANUAL DIFF)
[2023-11-20 15:37] LABS: VBG Base Excess -4.8 mmol/L (-2.4-2.3); VBG HCO3 20.9 mmol/L (23-30); VBG Oxygen Saturation 78.1 % (50-70); VBG PH 7.35 mmol/L (7.31-7.41); VBG PO2 46.6 mmol/L (28-40); VBG Total CO2 22.1 mmol/L (23-27)
[2023-11-20 15:39] LABS: Chloride 109 mmol/L (98-107); Lactate Venous 3.4 mmol/L (0.4-2.0); Potassium 4.1 mmoL/L (3.5-5.1); Sodium 137 mmol/L (136-145)
[2023-11-20 15:41] LABS: Alanine Aminotransferase 32 U/L (12-78); Anion Gap 10.1 mEq/L (5-15); Aspartate Amino Transferase 31 U/L (14-36); Blood Urea Nitrogen 51 mg/dl (7-17); Carbon Dioxide 22 mmol/L (22.0-30.0); Creatinine Clearance Estimated 89 mL/min (50-200); Estimated Glomerular Filt Rate 85 ml/min (>60); GFR (African American) 103 ML/MIN (>60)
[2023-11-20 15:42] LABS: Albumin Level 3.9 g/dl (3.5-5.0); Albumin/Globulin Ratio 1.7 (1.1-1.8); Alkaline Phosphatase 71 U/L (38-126); Bilirubin,Total 0.5 mg/dl (0.2-1.3); Calcium 8.9 mg/dl (8.4-10.2); Globulin 2.3 g/dL (1.3-3.2); Glucose 246 mg/dl (74-100); Lipase 103 U/L (23-300); Total Protein,Serum 6.2 g/dl (6.3-8.2)
[2023-11-20 15:48] LABS: Anisocytosis 1+; Eosinophils % 1 % (0-3); Lymphocytes % 16 % (10-50); Macrocytosis 1+; Monocytes % 3 % (2-9); Neutrophils % 80 % (42-76); RBC Morphology Normal; Total Cells Counted 100
[2023-11-20 15:49] LABS: Platelet Estimate Slight Increase
--- NOTE | 2023-11-20 15:49 | HMH.EDGENADL ---
Discharge Plan Disposition Patient Disposition: Home, Self-Care Chief Complaint: Syncope Prescriptions Prescriptions: No Action lisinopril 10 mg tablet See Rx Instructions .ROUTE .COMPLEX Qty: 90 0RF Dose Instruction: Take 1 tablet by mouth once daily Rx Instructions: Take 1 tablet by mouth once daily rosuvastatin 10 mg tablet See Rx Instructions .ROUTE .COMPLEX Qty: 90 0RF Dose Instruction: TAKE 1 TABLET BY MOUTH EVERY DAY AT BEDTIME Rx Instructions: TAKE 1 TABLET BY MOUTH EVERY DAY AT BEDTIME Nurtec ODT 75 mg tablet,disintegrating 75 mg PO ONCE PRN (Reason: migraine headache) Qty: 16 0RF (DME) OneTouch Ultra Test Strip See Rx Instructions .ROUTE .COMPLEX Qty: 100 12RF Dose Instruction: USE TO TEST BLOOD GLUCOSE THREE TIMES DAILY DIRECTED Rx Instructions: USE TO TEST BLOOD GLUCOSE THREE TIMES DAILY DIRECTED (DME) pen needle, diabetic [Comfort EZ Pen [place]] 32 gauge x 5/32 needle See Rx Instructions .Route Qty: 100 0RF Rx Instructions: daily aspirin 81 mg tablet,delayed release (DR/EC) 81 mg PO DAILY Qty: 90 3RF Farxiga 5 mg tablet 5 mg PO DAILY Qty: 90 3RF ergocalciferol (vitamin D2) 1,250 mcg (50,000 unit) capsule 50,000 unit PO QWEEK 90 Days Qty: 14 3RF glipizide 10 mg tablet extended release 24hr 10 mg PO DAILY Qty: 90 3RF Ozempic 0.25 mg or 0.5 mg (2 mg/3 mL) pen injector 0.25 mg SQ WEEKLY Qty: 3 2RF Rx Instructions: for 4 weeks Referrals Follow up/Referrals: Marilyn Rao PA [Primary Care Provider] - See instructions Clinical Impressions Clinical Impression: Syncope, Melena Instructions Patient Instructions: DI for Syncope in Adults (Fainting), DI for Syncope in Children (Fainting) Discharge ED Provider: Riaz Barrow General Adult HPI General Chief complaint: Syncope Stated complaint: High blood suger,passed Time Seen by Provider: 11/20/23 15:24 Mode of Arrival: Ambulatory Source of Information: Patient Limitations: No Limitations Description of Symptoms (Recalled from ER Triage Doc. by RN): patient states she has been having trouble with her blood glucose reports she checked her sugar this afternoon and it was 250. patient states she has been having trouble getting her meds. Patient states she had a syncopal episode where she passed out and hit her head on the metal transition piece on carpet around 1230. Reports she noticed prior to arrival she had 1 black tarry stool. Denies abdominal pain. History of Present Illness HPI narrative: Patient is a 63-year-old female with past medical history of [id number] diabetes on Trulicity who presents emergency department for evaluation of syncope. Patient drank water and coffee this morning, went for a walk, had 1 harjinder butter jelly sandwich when she sly from her couch to walk to the kitchen to get a drink of water she was on her way back when she had an episode of syncope falling backward striking her head with loss of consciousness. She has a slight posterior headache, denies other trauma at this time. She has been unable to fill her Trulicity for the last 3 weeks and sugar which is normally well-controlled has been over 250 at home. She also has had intermittent black stools, 1 large black stool today. No abdominal pain. Related Data Previous Rx's Medication Instructions Recorded blood sugar diagnostic (OneTouch #100 strips 02/24/23 Ultra Test strips) pen needle, diabetic 32 gauge x #100 ea 04/26/2332 (Comfort EZ Pen [place]) aspirin 81 mg tablet,delayed 81 mg PO DAILY #90 tabs 05/02/23 release dapagliflozin propanediol 5 mg 5 mg PO DAILY #90 tabs 05/02/23 tablet (Farxiga) ergocalciferol (vitamin D2) 1,250 50,000 unit PO QWEEK 90 days #14 05/02/23 mcg (50,000 unit) capsule caps glipizide 10 mg tablet, extended 10 mg PO DAILY #90 tabs 05/02/23 release 24 hr lisinopril 10 mg tablet See Rx Instructions .Route 11/07/23 .COMPLEX #90 tabs rimegepant 75 mg disintegrating 75 mg PO ONCE PRN migraine 11/07/23 tablet (Nurtec ODT) headache #16 tabs rosuvastatin 10 mg tablet See Rx Instructions .Route 11/07/23 .COMPLEX #90 tabs semaglutide 0.25 mg or 0.5 mg (2 0.25 mg (0.368 mL) SQ WEEKLY #3 mL 03/14/24 mg/3 mL) subcutaneous pen injector (Ozempic) Allergies Allergy/AdvReac Type Severity Reaction Status Date / Time No Known Allergies Allergy Verified 11/07/23 09:51 [facility] Disclaimer: The information contained in this section may have been updated after the patient was seen, as this information can be updated by other users. Medical History Depression Diabetes Social History Smoking Status: Never smoker alcohol intake: never substance use type: denies use current occupational status: employed Travel in the last 8 weeks: None household members: spouse, family and children housing: house ROS Obtained: Yes Systems reviewed as appropriate & no additional complaints except as documented Physical Exam General General appearance: alert and in no apparent distress Head Head exam: atraumatic and normocephalic Eye Eye exam: Present PERRL and EOMI ENT ENT exam: Present mucous membranes moist Neck Neck exam: Present normal inspection Chest Chest inspection: Present normal inspection and symmetric chest wall rise Respiratory Respiratory exam: Present normal lung sounds bilaterally; Absent respiratory distress Cardiovascular Cardiovascular exam: Present normal rhythm and tachycardia Abdominal Exam Abdominal exam: Present soft; Absent tenderness Extremities Exam Extremities exam: Present normal inspection Neurological Exam Neurological exam: Present alert, oriented X3 and CN II-XII intact; Absent motor sensory deficit Psychiatric Psychiatric exam: Present normal affect Skin Skin exam: Present warm and dry Medical Decision Making Arvind Inquiry Pt receiving controlled substance: No Vital Signs: 11/20/23 15:16 11/20/23 15:31 11/20/23 16:00 Temperature 98.2 F Temperature Source Oral Pulse Rate 108 H 103 H Respiratory Rate 18 Blood Pressure 132/69 115/61 Blood Pressure [Right Arm] 118/69 Blood Pressure Mean Blood Pressure Mean [Right Arm] 85 Blood Pressure Source [Right Arm] Automatic Cuff 02 Sat by Pulse Oximetry 95 96 97 Oxygen Delivery Method Room Air Room Air Room Air 11/20/23 16:30 11/20/23 19:39 Temperature Temperature Source Pulse Rate 102 H 94 H Respiratory Rate Blood Pressure 107/65 L 111/69 Blood Pressure [Right Arm] Blood Pressure Mean 81 Blood Pressure Mean [Right Arm] Blood Pressure Source [Right Arm] 02 Sat by Pulse Oximetry 96 98 Oxygen Delivery Method Room Air Lab Data Lab Results 11/20/23 15:25: WBC 18.3 H, RBC 3.62 L, Hgb 11.6 L, Hct 36.4 L, MCV 100.6 H, MCH 32.0 H, MCHC 31.8, RDW 14.7, Plt Count 444 H, MPV 8.9, Neut % (Auto) 80.5 H, Lymph % (Auto) 14.5, [place] % (Auto) 3.3, Eos % (Auto) 1.1, Baso % (Auto) 0.6, Neut # (Auto) 14.8 H, Lymph # (Auto) 2.7, [place] # (Auto) 0.6, Eos # (Auto) 0.2, Baso # (Auto) 0.1, Total Counted 100, Neutrophils % (Manual) 80 H, Lymphocytes % (Manual) 16, Monocytes % (Manual) 3, Eosinophils % (Manual) 1, Platelet Estimate Slight increase, RBC Morphology Normal, Anisocytosis 1+, Macrocytosis 1+, VBG pH 7.35, VBG pCO2 39.0, VBG pO2 46.6 H, VBG HCO3 20.9 L, VBG Total CO2 22.1 L, VBG O2 Saturation 78.1 H, VBG Base Excess -4.8 L, VBG Lactic Acid 3.4 H, Sodium 137, Potassium 4.1, Chloride 109 H, Carbon Dioxide 22, Anion Gap 10.1, BUN 51 H, Creatinine 0.70, Estimated Creat Clear 89, Estimated GFR 85, Est GFR ( Amer) 103, Glucose 246 H, Calcium 8.9, Total Bilirubin 0.5, AST 31, ALT 32, Alkaline Phosphatase 71, Total Protein 6.2 L, Albumin 3.9, Globulin 2.3, Albumin/Globulin Ratio 1.7, Lipase 103, TSH 0.92, Free T4 0.99 11/20/23 17:00: Urine Color Yellow, Urine Appearance Clear, Urine pH 6.0, Ur Specific [place] 1.015, Urine Protein Negative, Urine Glucose (UA) 3+, Urine Ketones Trace, Urine Blood Negative, Urine Nitrate Negative, Urine Bilirubin Negative, Urine Urobilinogen 0.2, Ur Leukocyte Esterase Negative, Urine RBC None, Urine WBC Occasional, Ur Squamous Epith Cells Occasional, Urine Bacteria None 11/20/23 15:25 11/20/23 15:25 Orders (Tests/Meds): ED MEDICATIONS Discontinued Medications Generic Name Dose Route Start Last Admin Trade Name Dipika PRN Reason Stop Dose Admin Lactated Ringer's 1,000 mls @ 999 mls/hr 11/20/23 15:49 11/20/23 15:53 Lactated Ringer's 1000 Ml Bag IV 11/20/23 16:49 999 mls/hr .Q1H1M ONE Administration ORDERS Category Date Time Status CT head/brain wo con Stat Cat Scan 11/20/23 15:57 Completed CXR --portable [XR chest portable] Stat Exams 11/20/23 15:25 Completed CBC w/Auto Diff [Complete Blood Count Auto Diff] Stat Lab 11/20/23 15:25 Completed CMP [Comprehensive Metabolic Panel] Stat Lab 11/20/23 15:25 Completed Free T4 (Free Thyroxine) Stat Lab 11/20/23 15:25 Completed Lactic Acid Follow Up (RFLX 1) Stat Lab 11/20/23 19:39 Ordered Lipase Stat Lab 11/20/23 15:25 Completed TSH [Thyroid Stimulating Hormone] Stat Lab 11/20/23 15:25 Completed UA [Urinalysis and Microscopic] Stat Lab 11/20/23 17:00 Completed VBG [Venous Blood Gas] Stat RT 11/20/23 15:25 Completed Medical Decision Narrative: In summary patient is a 63-year-old female past medical history described above who presents emergency department for evaluation of syncope in the setting of [id number] diabetes. Patient is hemodynamically stable nontoxic-appearing upon arrival, afebrile, tachycardic. Differential diagnosis includes vasovagal presyncope secondary to hypovolemia with hyperglycemia, cardiac conduction abnormality, DKA, electrolyte abnormality, among others. Workup will be conducted with hematologic labs, chest x-ray, EKG, VBG, urinalysis, noncontrasted CT scan of the head. Initial interventions include crystalloid bolus. Initial workup reviewed by me, patient has white count of 18.3 with an acute anemia of 11.6 with baseline of 14.2. Patient has elevated BUN that is discordant to the creatinine. Acid-base status is compensated. Remainder of hematologic labs are nonactionable, patient has hyperglycemia of 246, urinalysis interpreted by me and not consistent with infection. Given these findings my concern for upper GI bleed is high. Case was discussed with Dr. Chacon who agrees patient would benefit from upper GI endoscopy. Case was subsequently discussed with hospital medicine who admit the patient to her service for continued evaluation at this time. Critical Care Critical Care Time Critical Care Time: No
[2023-11-20] MEDS: LACTATED RINGERS 1000ML 1,000 ML 999 ML IV (15:53)
--- NOTE | 2023-11-20 15:57 | CT_ITS ---
PROCEDURE INFORMATION: Exam: CT Head Without Contrast Exam date and time: 11/20/2023 4:18 PM Age: 63 years old Clinical indication: Syncope and collapse; Additional info: Posterior trauma syncope TECHNIQUE: Imaging protocol: Computed tomography of the head without contrast. Radiation optimization: All CT scans at this facility use at least one of these dose optimization techniques: automated exposure control; mA and/or kV adjustment per patient size (includes targeted exams where dose is matched to clinical indication); or iterative reconstruction. COMPARISON: No relevant prior studies available. FINDINGS: Brain: No acute intracranial hemorrhage. No evidence of large vessel infarct. No mass effect or midline shift. Yi-white differentiation is preserved. Cerebral ventricles: Unremarkable. Basal cisterns are patent. Paranasal sinuses: Mucosal thickening with partial opacification of the left sphenoid sinus. Frothy secretions in the right sphenoid sinus. Scattered mucosal thickening of the ethmoid air cells. No fluid levels. Mastoid air cells: Visualized mastoid air cells are unremarkable Orbital cavities: Visualized orbits are unremarkable. Bones/joints: No acute fracture. Soft tissues: Small to moderate right parietal scalp hematoma. IMPRESSION: 1. No CT evidence of acute intracranial abnormality. 2. Small to moderate right parietal scalp hematoma. No acute fracture. 3. Sinus disease as above.
[2023-11-20 16:21] LABS: Free T4 (Free Thyroxine) 0.99 ng/dl (0.78-2.19)
--- NOTE | 2023-11-20 16:21 | PC.NURSE ---
pt arrived back to room from ct
[2023-11-20 16:35] LABS: Thyroid Stimulating Hormone 0.92 uIU/mL (0.465-4.68)
[2023-11-20 17:02] LABS: Microscopic, Urine URINE MICROSCOPIC (MICROSCOPIC)
[2023-11-20 17:06] LABS: Appearance,Urine CLEAR (Clear); Bilirubin,Urine Negative (Negative); Blood, Urine Negative (Negative); Color,Urine YELLOW (Yellow); Glucose,Urine (UA) 3+ (Negative); Ketones,Urine TRACE (Negative); Leukocyte Esterase,Urine Negative (Negative); Nitrate,Urine Negative (Negative); Protein,Urine Negative (Negative); Specific Gravity, Urine 1.015 (1.005-1.030); Urobilinogen,Urine 0.2 EU/dl (0.2)
[2023-11-20 17:38] LABS: Squamous Epithelial Cell,Urine Occasional #/hpf (0-5); WBC,Urine Occasional #/hpf (0-3)
[2023-11-20 19:39] LABS: Reflex Lactic Add Lactic Reflex
--- NOTE | 2023-11-20 20:17 | P.CONS_ITS ---
History of Present Illness *Admission Date: 11/20/23 *Reason for visit:: Syncope *History of present illness: Patient is a 63-year-old diabetic female. She has recently been having some issues with control of blood glucose. Today she had a syncopal episode where she states that she had passed out. She had a formed black stool earlier today. Patient states that recently she had been taking approximately 4 Aleve 3 times a day. Evaluation in the emergency department reveals a white blood cell count of 18,000. She has a hemoglobin of 11.6. Recent hemoglobin of 14.2. BUN of 51 with creatinine of 0.70. Patient has no prior history of ulcers. [facility] Disclaimer: The information contained in this section may have been updated after the patient was seen, as this information can be updated by other users. Medical History Depression Diabetes Social History Smoking Status: Never smoker alcohol intake: never substance use type: denies use current occupational status: employed Travel in the last 8 weeks: None household members: spouse, family and children housing: house Meds Home Medications and Allergies Home Medications Medication Instructions Recorded Confirmed Type blood sugar diagnostic (OneTouch #100 strips 02/24/23 08/09/23 Rx Ultra Test strips) pen needle, diabetic 32 gauge x #100 ea 04/26/23 08/09/23 Rx 5/32 (Comfort EZ Pen [place]) aspirin 81 mg tablet,delayed 81 mg PO DAILY #90 tabs 05/02/23 11/07/23 Rx release dapagliflozin propanediol 5 mg 5 mg PO DAILY #90 tabs 05/02/23 11/07/23 Rx tablet (Farxiga) ergocalciferol (vitamin D2) 1,250 50,000 unit PO QWEEK 90 days #14 05/02/23 11/07/23 Rx mcg (50,000 unit) capsule caps glipizide 10 mg tablet, extended 10 mg PO DAILY #90 tabs 05/02/23 11/07/23 Rx release 24 hr lisinopril 10 mg tablet See Rx Instructions .Route 11/07/23 11/07/23 Rx .COMPLEX #90 tabs rimegepant 75 mg disintegrating 75 mg PO ONCE PRN migraine 11/07/23 11/07/23 Rx tablet (Nurtec ODT) headache #16 tabs rosuvastatin 10 mg tablet See Rx Instructions .Route 11/07/23 11/07/23 Rx .COMPLEX #90 tabs semaglutide 0.25 mg or 0.5 mg (2 0.25 mg (0.368 mL) SQ WEEKLY #3 mL 11/09/23 Rx mg/3 mL) subcutaneous pen injector (Ozempic) New Prescriptions to Start Prescriptions: Allergies Allergy/AdvReac Type Severity Reaction Status Date / Time No Known Allergies Allergy Verified 11/07/23 09:51 Exam (Inpt) Vital signs and Labs for Last 24 Hours: Temp Pulse Resp BP Pulse Ox O2 Del Method 98.2 F 94 H 18 111/69 98 Room Air 11/20/23 15:16 11/20/23 19:39 11/20/23 15:16 11/20/23 19:39 11/20/23 19:39 11/20/23 16:30 Laboratory Results - last 24 hr 11/20/23 15:25: WBC 18.3 H, RBC 3.62 L, Hgb 11.6 L, Hct 36.4 L, MCV 100.6 H, MCH 32.0 H, MCHC 31.8, RDW 14.7, Plt Count 444 H, MPV 8.9, Neut % (Auto) 80.5 H, Lymph % (Auto) 14.5, [place] % (Auto) 3.3, Eos % (Auto) 1.1, Baso % (Auto) 0.6, N eut # (Auto) 14.8 H, Lymph # (Auto) 2.7, [place] # (Auto) 0.6, Eos # (Auto) 0.2, Baso # (Auto) 0.1, Total Counted 100, Neutrophils % (Manual) 80 H, Lymphocytes % (Manual) 16, Monocytes % (Manual) 3, Eosinophils % (Manual) 1, Platelet Estimate Slight increase, RBC Morphology Normal, Anisocytosis 1+, Macrocytosis 1+, VBG pH 7.35, VBG pCO2 39.0, VBG pO2 46.6 H, VBG HCO3 20.9 L, VBG Total CO2 22.1 L, VBG O2 Saturation 78.1 H, VBG Base Excess -4.8 L, VBG Lactic Acid 3.4 H, Sodium 137, Potassium 4.1, Chloride 109 H, Carbon Dioxide 22, Anion Gap 10.1, BUN 51 H, Creatinine 0.70, Estimated Creat Clear 89, Estimated GFR 85, Est GFR ( Amer) 103, Glucose 246 H, Calcium 8.9, Total Bilirubin 0.5, AST 31, ALT 32, Alkaline Phosphatase 71, Total Protein 6.2 L, Albumin 3.9, Globulin 2.3, Albumin/Globulin Ratio 1.7, Lipase 103, TSH 0.92, Free T4 0.99 11/20/23 17:00: Urine Color Yellow, Urine Appearance Clear, Urine pH 6.0, Ur Specific [place] 1.015, Urine Protein Negative, Urine Glucose (UA) 3+, Urine Ketones Trace, Urine Blood Negative, Urine Nitrate Negative, Urine Bilirubin Negative, Urine Urobilinogen 0.2, Ur Leukocyte Esterase Negative, Urine RBC None, Urine WBC Occasional, Ur Squamous Epith Cells Occasional, Urine Bacteria None I & O for Labs for Last 24 Hours: Intake & Output 11/18/23 11/19/23 11/20/23 11/21/23 11:59 11:59 11:59 11:59 Weight 210 lb Constitutional: no acute distress Head: Present normocephalic Results Labs 11/20/23 15:25 11/20/23 15:25 Labs: Laboratory Results - last 24 hr 11/20/23 15:25: WBC 18.3 H, RBC 3.62 L, Hgb 11.6 L, Hct 36.4 L, MCV 100.6 H, MCH 32.0 H, MCHC 31.8, RDW 14.7, Plt Count 444 H, MPV 8.9, Neut % (Auto) 80.5 H, Lymph % (Auto) 14.5, [place] % (Auto) 3.3, Eos % (Auto) 1.1, Baso % (Auto) 0.6, N eut # (Auto) 14.8 H, Lymph # (Auto) 2.7, [place] # (Auto) 0.6, Eos # (Auto) 0.2, Baso # (Auto) 0.1, Total Counted 100, Neutrophils % (Manual) 80 H, Lymphocytes % (Manual) 16, Monocytes % (Manual) 3, Eosinophils % (Manual) 1, Platelet Estimate Slight increase, RBC Morphology Normal, Anisocytosis 1+, Macrocytosis 1+, VBG pH 7.35, VBG pCO2 39.0, VBG pO2 46.6 H, VBG HCO3 20.9 L, VBG Total CO2 22.1 L, VBG O2 Saturation 78.1 H, VBG Base Excess -4.8 L, VBG Lactic Acid 3.4 H, Sodium 137, Potassium 4.1, Chloride 109 H, Carbon Dioxide 22, Anion Gap 10.1, BUN 51 H, Creatinine 0.70, Estimated Creat Clear 89, Estimated GFR 85, Est GFR ( Amer) 103, Glucose 246 H, Calcium 8.9, Total Bilirubin 0.5, AST 31, ALT 32, Alkaline Phosphatase 71, Total Protein 6.2 L, Albumin 3.9, Globulin 2.3, Albumin/Globulin Ratio 1.7, Lipase 103, TSH 0.92, Free T4 0.99 11/20/23 17:00: Urine Color Yellow, Urine Appearance Clear, Urine pH 6.0, Ur Specific [place] 1.015, Urine Protein Negative, Urine Glucose (UA) 3+, Urine Ketones Trace, Urine Blood Negative, Urine Nitrate Negative, Urine Bilirubin Negative, Urine Urobilinogen 0.2, Ur Leukocyte Esterase Negative, Urine RBC None, Urine WBC Occasional, Ur Squamous Epith Cells Occasional, Urine Bacteria None Assessment and Plan *Assessment and plan (1) Melena: Status: Acute Category: Medical Code(s): K92.1 - Melena (2) Syncope: Status: Acute Category: Medical Code(s): R55 - Syncope and collapse Plan Possible upper GI blood loss and syncope. Monitor hemoglobin. Tentatively plan for upper endoscopy tomorrow morning for diagnostic and potentially therapeutic purposes.
--- NOTE | 2023-11-20 20:40 | EXP.HP ---
History of Present Illness *Admission Date: 11/20/23 *Reason for visit:: melena and syncope *History of present illness: Patient is a 63-year-old diabetic female on trulicity. She has recently been having some issues to obtain it ending with difficult control of blood glucose. Today she had a syncopal episode where she states that she had passed out. She had a formed black stool earlier today. Patient states that recently she had been taking approximately 4 Aleve 3 times a day for migraine and for a dental procedure that was recently done Evaluation in the emergency department reveals a white blood cell count of 18,000. She has a hemoglobin of 11.6. Recent hemoglobin of 14.2. BUN of 51 with creatinine of 0.70. Patient has no prior history of ulcers. [facility] Disclaimer: The information contained in this section may have been updated after the patient was seen, as this information can be updated by other users. Medical History (Updated 11/21/23 @ 05:04 by Giacomo Choudhury APRN) Cholecystectomy planned Depression Diabetes Surgical History (Updated 11/20/23 @ 22:46 by Tiara Cespedes RN) H/O sinus surgery History of carpal tunnel surgery H/O: hysterectomy Social History Smoking Status: Never smoker alcohol intake: never substance use type: denies use current occupational status: employed Travel in the last 8 weeks: None household members: spouse, family and children housing: house Review of Systems Review of Systems Review of systems:: pertinent systems reviewed and negative unless documented below Meds Home Medications and Allergies Home Medications Medication Instructions Recorded Confirmed Type blood sugar diagnostic (OneTouch #100 strips 02/24/23 11/20/23 Rx Ultra Test strips) pen needle, diabetic 32 gauge x #100 ea 04/26/23 11/20/23 Rx 5/32 (Comfort EZ Pen [place]) aspirin 81 mg tablet,delayed 81 mg PO DAILY #90 tabs 05/02/23 11/20/23 Rx release dapagliflozin propanediol 5 mg 5 mg PO DAILY #90 tabs 05/02/23 11/20/23 Rx tablet (Farxiga) ergocalciferol (vitamin D2) 1,250 50,000 unit PO QWEEK 90 days #14 05/02/23 11/20/23 Rx mcg (50,000 unit) capsule caps glipizide 10 mg tablet, extended 10 mg PO DAILY #90 tabs 05/02/23 11/20/23 Rx release 24 hr rimegepant 75 mg disintegrating 75 mg PO ONCE PRN migraine 11/07/23 11/21/23 Rx tablet (Nurtec ODT) headache #16 tabs dulaglutide 1.5 mg/0.5 mL 1.5 mg SQ WEEKLY 11/20/23 11/20/23 History subcutaneous pen injector (Trulicity) lisinopril 10 mg tablet 10 mg PO DAILY 11/21/23 11/21/23 History rosuvastatin 10 mg tablet 10 mg PO HS 11/21/23 11/21/23 History New Prescriptions to Start Prescriptions: Allergies Allergy/AdvReac Type Severity Reaction Status Date / Time No Known Allergies Allergy Verified 11/07/23 09:51 Exam Data for Last 24 hours Vital signs and Labs for Last 24 Hours: Temp Pulse Resp BP Pulse Ox O2 Del Method 98.2 F 94 H 18 111/69 98 Room Air 11/20/23 15:16 11/20/23 19:39 11/20/23 15:16 11/20/23 19:39 11/20/23 19:39 11/20/23 16:30 Laboratory Results - last 24 hr 11/20/23 15:25: WBC 18.3 H, RBC 3.62 L, Hgb 11.6 L, Hct 36.4 L, MCV 100.6 H, MCH 32.0 H, MCHC 31.8, RDW 14.7, Plt Count 444 H, MPV 8.9, Neut % (Auto) 80.5 H, Lymph % (Auto) 14.5, [place] % (Auto) 3.3, Eos % (Auto) 1.1, Baso % (Auto) 0.6, Neut # (Auto) 14.8 H, Lymph # (Auto) 2.7, [place] # (Auto) 0.6, Eos # (Auto) 0.2, Baso # (Auto) 0.1, Total Counted 100, Neutrophils % (Manual) 80 H, Lymphocytes % (Manual) 16, Monocytes % (Manual) 3, Eosinophils % (Manual) 1, Platelet Estimate Slight increase, RBC Morphology Normal, Anisocytosis 1+, Macrocytosis 1+, VBG pH 7.35, VBG pCO2 39.0, VBG pO2 46.6 H, VBG HCO3 20.9 L, VBG Total CO2 22.1 L, VBG O2 Saturation 78.1 H, VBG Base Excess -4.8 L, VBG Lactic Acid 3.4 H, Sodium 137, Potassium 4.1, Chloride 109 H, Carbon Dioxide 22, Anion Gap 10.1, BUN 51 H, Creatinine 0.70, Estimated Creat Clear 89, Estimated GFR 85, Est GFR ( Amer) 103, Glucose 246 H, Calcium 8.9, Total Bilirubin 0.5, AST 31, ALT 32, Alkaline Phosphatase 71, Total Protein 6.2 L, Albumin 3.9, Globulin 2.3, Albumin/Globulin Ratio 1.7, Lipase 103, TSH 0.92, Free T4 0.99 11/20/23 17:00: Urine Color Yellow, Urine Appearance Clear, Urine pH 6.0, Ur Specific [place] 1.015, Urine Protein Negative, Urine Glucose (UA) 3+, Urine Ketones Trace, Urine Blood Negative, Urine Nitrate Negative, Urine Bilirubin Negative, Urine Urobilinogen 0.2, Ur Leukocyte Esterase Negative, Urine RBC None, Urine WBC Occasional, Ur Squamous Epith Cells Occasional, Urine Bacteria None I & O for Last 24 hours: Intake & Output 11/17/23 11/18/23 11/19/23 11/20/23 23:59 23:59 23:59 23:59 Weight 95.254 kg Constitutional Constitutional: mild distress and cooperative *Routine HEENT Exam Head: Present normocephalic Eye: Present EOMI and PERRL ENT: Present mucous membranes moist *Routine Neck Exam Neck: Present supple; Absent lymphadenopathy *Routine Respiratory Exam Respiratory: Present CTA bilaterally *Routine Cardiovascular Exam Cardiovascular: Present RRR *Routine Abdominal Exam Abdominal: Present soft, normoactive bowel sounds, tenderness and obese *Routine Rectal Exam Rectal:: deferred *Routine Genitalia Exam Genitalia:: deferred *Routine Extremities Exam Extremities: Absent cyanosis, clubbing or edema *Routine Skin Exam Skin: Present warm; Absent rash *Routine Neurological Exam Neurological: Present alert and oriented X3 Routine Psychiatric Exam Psychiatric: Present good insight H&P: Result Imaging and Cardiology EKG: Status: image reviewed by me, Preliminary report and final report CT scan - head: Status: image reviewed by me, Preliminary report and final report Assessment and Plan *Assessment and plan (1) Melena: Status: Acute Category: Medical Code(s): K92.1 - Melena (2) Syncope: Status: Acute Qualifiers: Syncope type: unspecified Qualified Code(s): R55 - Syncope and collapse Category: Medical Code(s): R55 - Syncope and collapse (3) Hematoma of parietal scalp: Status: Acute Category: Medical Code(s): S00.03XA - Contusion of scalp, initial encounter (4) Diabetes: Status: Chronic Qualifiers: Diabetes mellitus complication status: without complication Diabetes mellitus regulatory affairs specialist insulin use: without jail use Diabetes mellitus type: type 2 Qualified Code(s): E11.9 - Type 2 diabetes mellitus without complications Category: Medical Code(s): E11.9 - Type 2 diabetes mellitus without complications (5) Migraine: Status: Acute Qualifiers: Intractability: not intractable Migraine type: unspecified Status migrainosus presence: without status migrainosus Qualified Code(s): G43.909 - Migraine, unspecified, not intractable, without status migrainosus Category: Medical Code(s): G43.909 - Migraine, unspecified, not intractable, without status migrainosus (6) Obesity (BMI 30-39.9): Status: Acute Category: Medical Code(s): E66.9 - Obesity, unspecified Plan 63-year-old diabetic female on trulicity. She has recently been having some issues to obtain it ending with difficult control of blood glucose. Today she had a syncopal episode where she states that she had passed out. She stated she went to drink water when she was on her way back when she had an episode of syncope falling backward striking her head with loss of consciousness. She has a slight posterior headache, denies other trauma at this time. She had a formed black stool earlier today. on arrival, patient alert and oriented, Initial workup WBC of 18.3 with an acute anemia of 11.6 with baseline of 14.2, patient has hyperglycemia of 246, UA looks negative. Given these findings there is a concern for upper GI bleed is high. Case was discussed with ED and Dr. Chacon who agrees patient would benefit from upper GI endoscopy, requested admission for further management. Medicine agreed to admit. Problems addressed as follows: -Syncope, suspected anemia secondary to GI bleed: Hematoma of the scalp. No actionable Admit patient for medical services. Surgical consult. Possible EGD in the morning. Keep n.p.o. after midnight Protonix twice daily Repeat CBC in the morning. Continue IV hydration Monitor per unit protocol -Diabetes: Last A1c 6.6. Patient states that has been having difficult to obtain Trulicity. Accu-Chek before meals and as needed Sliding scale Migraine Resumed medical records referred for and rimegepant Obesity: Encouraged to keep weight management. Lovenox for DVT prophylaxis. On Protonix Full code Rounded on patient after nurse practitioner. Personally examined and interviewed patient. Agree with exam findings and care plan as documented.
--- NOTE | 2023-11-20 21:24 | PC.NURSE ---
Patient arrived to floor via wheelchair from the ED at 21:20.
[2023-11-20] MEDS: 0.9 % SODIUM CHLORIDE 1000ML 1,000 ML 75 ML IV (21:45)
[2023-11-20] MEDS: PANTOPRAZOLE 40MG VIAL 40 MG IV (21:46)
[2023-11-20] MEDS: SODIUM CHLORIDE 0.9% 10ML VIAL 10 ML IV (21:46)
[2023-11-20 21:55] LABS: Lactic Acid Follow Up (RFLX 1) 2.2 mmol/L (0.7-2.1)
[2023-11-20 23:42] LABS: Reflex Lactic (2 hrs) Add Lactic Reflex
[2023-11-21] VITALS (14 sets, daily range): BP systolic 112–136; BP diastolic 57–77; PULSE 74–88; RESP 15–21; TEMP 36.4–37.1; O2SAT 93–100; BMI 36.1
--- NOTE | 2023-11-21 07:11 | P.PN_ITS ---
Subjective Narrative: No new complaints. Patient does state that she has had some dizziness when up to the restroom. No passage of blood. No bowel movements. Labs pending Exam Data for Last 24 hours Vital signs and Labs for Last 24 Hours: Temp Pulse Resp BP Pulse Ox O2 Del Method 98.4 F 80 17 122/77 98 Room Air 11/21/23 04:00 11/21/23 04:00 11/21/23 04:00 11/21/23 04:00 11/21/23 04:00 11/21/23 05:00 Laboratory Results - last 24 hr 11/20/23 15:25: WBC 18.3 H, RBC 3.62 L, Hgb 11.6 L, Hct 36.4 L, MCV 100.6 H, MCH 32.0 H, MCHC 31.8, RDW 14.7, Plt Count 444 H, MPV 8.9, Neut % (Auto) 80.5 H, Lymph % (Auto) 14.5, [place] % (Auto) 3.3, Eos % (Auto) 1.1, Baso % (Auto) 0.6, Neut # (Auto) 14.8 H, Lymph # (Auto) 2.7, [place] # (Auto) 0.6, Eos # (Auto) 0.2, Baso # (Auto) 0.1, Total Counted 100, Neutrophils % (Manual) 80 H, Lymphocytes % (Manual) 16, Monocytes % (Manual) 3, Eosinophils % (Manual) 1, Platelet Estimate Slight increase, RBC Morphology Normal, Anisocytosis 1+, Macrocytosis 1+, VBG pH 7.35, VBG pCO2 39.0, VBG pO2 46.6 H, VBG HCO3 20.9 L, VBG Total CO2 22.1 L, VBG O2 Saturation 78.1 H, VBG Base Excess -4.8 L, VBG Lactic Acid 3.4 H, Sodium 137, Potassium 4.1, Chloride 109 H, Carbon Dioxide 22, Anion Gap 10.1, BUN 51 H, Creatinine 0.70, Estimated Creat Clear 89, Estimated GFR 85, Est GFR ( Amer) 103, Glucose 246 H, Calcium 8.9, Total Bilirubin 0.5, AST 31, ALT 32, Alkaline Phosphatase 71, Total Protein 6.2 L, Albumin 3.9, Globulin 2.3, Albumin/Globulin Ratio 1.7, Lipase 103, TSH 0.92, Free T4 0.99 11/20/23 17:00: Urine Color Yellow, Urine Appearance Clear, Urine pH 6.0, Ur Specific [place] 1.015, Urine Protein Negative, Urine Glucose (UA) 3+, Urine Ketones Trace, Urine Blood Negative, Urine Nitrate Negative, Urine Bilirubin Negative, Urine Urobilinogen 0.2, Ur Leukocyte Esterase Negative, Urine RBC None, Urine WBC Occasional, Ur Squamous Epith Cells Occasional, Urine Bacteria None 11/20/23 21:35: Lactate 2.2 H 11/20/23 23:53: Lactate 1.0 I & O for Last 24 hours: Intake & Output 11/18/23 11/19/23 11/20/23 11/21/23 11:59 11:59 11:59 11:59 Intake Total 626 / 626 Output Total 0 / 0 Balance 626 / 626 Weight 211 lb 9.595 oz Progress Note: A&P Assessment and plan (1) Melena: Status: Acute Assessment and plan: EGD today (2) Syncope: Status: Acute (3) Hematoma of parietal scalp: Status: Acute (4) Diabetes: Status: Chronic (5) Migraine: Status: Acute (6) Obesity (BMI 30-39.9): Status: Acute
[2023-11-21 07:21] LABS: Basophils # 0.1 K/mm3 (0-0.2); Basophils % 0.6 % (0.1-2.0); Eosinophils # 0.2 K/mm3 (0.0-0.4); Hematocrit 27.9 % (37.0-47.0); Mean Corpuscular HGB Conc 32.8 g/dL (31.8-35.4); Mean Corpuscular Hemoglobin 32.5 pg (27.0-31.2); Mean Corpuscular Volume 99.3 fl (81-99); Mean Platelet Volume 8.5 fl (7.4-10.4); Monocytes # 0.4 K/mm3 (0.1-1.0); Neutrophils # 6.4 K/mm3 (1.8-7.8); Neutrophils % 63.3 % (37.0-80.0); Platelet Count 315 K/mm3 (142-424); Red Blood Count 2.81 M/mm3 (4.20-5.40); Red Cell Distribution Width 15.1 % (11.5-17.5); White Blood Count 10.1 K/mm3 (4.8-10.8)
[2023-11-21 07:52] LABS: Alanine Aminotransferase 22 U/L (12-78); Albumin/Globulin Ratio 1.4 (1.1-1.8); Alkaline Phosphatase 63 U/L (38-126); Anion Gap 5.4 mEq/L (5-15); Aspartate Amino Transferase 26 U/L (14-36); Bilirubin,Total 0.4 mg/dl (0.2-1.3); Blood Urea Nitrogen 31 mg/dl (7-17); Calcium 8.2 mg/dl (8.4-10.2); Carbon Dioxide 24 mmol/L (22.0-30.0); Chloride 111 mmol/L (98-107); Creatinine Clearance Estimated 90 mL/min (50-200); Estimated Glomerular Filt Rate 102 ml/min (>60); GFR (African American) 123 ML/MIN (>60); Globulin 2.2 g/dL (1.3-3.2); Glucose 125 mg/dl (74-100); Potassium 3.4 mmoL/L (3.5-5.1); Sodium 137 mmol/L (136-145); Total Protein,Serum 5.2 g/dl (6.3-8.2)
--- NOTE | 2023-11-21 08:10 | HMH.PHAINT1 ---
Pharmacy Intervention Comments: HOME MEDICATION LIST VERIFIED VIA OUTSIDE PHARMACY/OFFICE NOTE
[2023-11-21 08:18] LABS: POC Glucose,Bedside 141 (70-110)
[2023-11-21 08:37] LABS: Hemoglobin 9.1 g/dL (12.2-16.2)
--- NOTE | 2023-11-21 08:39 | P.PCN_ITS ---
Procedure: Date: 11/21/23 Patient Date of :: 1960 Procedure Performed:: Esophagogastroduodenoscopy Indications:: Patient is a 63-year-old diabetic female. She has recently been having some issues with control of blood glucose. Yesterday she had a syncopal episode where she states that she had passed out. She had a formed black stool earlier. Patient states that recently she had been taking approximately 4 Aleve 3 times a day. Evaluation in the emergency department reveals a white blood cell count of 18,000. She has a hemoglobin of 11.6. Recent hemoglobin of 14.2. BUN of 51 with creatinine of 0.70. Patient has no prior history of ulcers. Performing Provider:: Donavon Chacon MD Referring Provider:: . Sedation:: MAC sedation Procedure:: Patient history was obtained and appropriate physical examination was performed. Patient's medications and allergies were reviewed. Informed consent was obtained after explaining the benefits, alternatives, and risks of the procedure including, but not limited to, bleeding, perforation, missed lesions, and adverse reaction to anesthesia medications. Patient was transported to endoscopy procedure room. Patient was connected to monitoring devices. Throughout the procedure the patient's blood pressure, pulse, and oxygen saturations were monitored continuously. Patient identification and planned procedure were verified by the staff. Patient was positioned in lateral decubitus position. Olympus endoscope was inserted via the oropharynx. Esophagus was cannulated. There is mild tortuosity to the esophagus but overall relatively normal-appearing. Gastroesophageal junction was encountered at 36 cm. Stomach was cannulated and insufflated. There was some mild old heme material mostly in the fundus of the stomach.Thorough irrigation and suctioning was performed for clearance. Retroflexion within the gastric lumen was somewhat difficult and visualization of the gastroesophageal junction was difficult but there was noted to be no a ppreciable hiatal hernia. In the antrum there were several punctate erosions consistent with subacute erosive antral gastritis. There was some fracture appearing blood within the duodenal bulb and some mild to moderate nonerosive duodenitis. Thorough investigation was carried out within the duodenal bulb and there is no evidence of any active bleeding or site of potential hemorrhage. Endoscope was advanced to the distal duodenum which appeared unremarkable. It was slowly withdrawn with inspection in the duodenum. Once again there was some mild to moderate duodenitis but no evidence of any stigmata of recent bleeding. Stomach was desufflated and the endoscope was withdrawn. Findings:: Gastroesophageal junction at 36 cm Old heme material in the gastric fundus but no evidence of any side of recent bleeding Erosive antral gastritis Characterized by several shallow punctate exudative erosions, nonbleeding Moderate duodenitis Recommendations:: Recommend continuation of proton pump inhibitors and cessation of NSAID use Complications:: None Estimated blood obtained (mL): 1 Colonoscopy Component Colonoscopy Component Was a colonoscopy performed during today's procedure?: No
--- NOTE | 2023-11-21 08:42 | P.PNANES_ITS ---
[facility] Disclaimer: The information contained in this section may have been updated after the patient was seen, as this information can be updated by other users. Medical History (Updated 11/21/23 @ 05:04 by Giacomo Choudhury APRN) Cholecystectomy planned Depression Diabetes Surgical History (Updated 11/20/23 @ 22:46 by Tiara Cespedes RN) H/O sinus surgery History of carpal tunnel surgery H/O: hysterectomy Social History Smoking Status: Never smoker alcohol intake: never substance use type: denies use current occupational status: employed Travel in the last 8 weeks: None household members: spouse, family and children housing: house [facility] Anesthesia Checklist Patient Identification Patient Identification: Verbal (Name & ) Structural Data Admitted From: Inpatient Planned Operative Procedure/s: egd Consent for Planned Operative Procedure(s) Verified: Yes Airway Assessment Mallampati Score:: Class II C-Spine Mobility Assessed: Yes TMJ Mobility Assessed: Yes Dentition: Good Dentition Neurological Assessment Level of Consciousness: Awake, Alert and Appropriate Anesthesia Plan Anesthesia Risk discussed: Yes Anesthesia Plan: Verified ASA Class: II Anesthesia Type: MAC
--- NOTE | 2023-11-21 09:22 | PC.NURSE ---
Rounded on patient. Ice water provided per request, otherwise no questions or concerns at this time.
[2023-11-21] MEDS: PANTOPRAZOLE 40MG VIAL 40 MG IV ×2 (09:40→20:26)
[2023-11-21] MEDS: SODIUM CHLORIDE 0.9% 10ML VIAL 10 ML IV ×2 (09:40→20:26)
[2023-11-21 10:28] LABS: POC Glucose,Bedside 151 (70-110)
[2023-11-21] MEDS: 0.9 % SODIUM CHLORIDE 1000ML 1,000 ML 75 ML IV (13:59)
--- NOTE | 2023-11-21 14:48 | EXP.ACUTE.PN ---
Subjective *Date: 11/21/23 *Time: 18:44 Interval history: Patient taken for EGD this morning. Irritations but no oswald bleeding noted. Hemoglobin down this morning to 9 from 11.6 yesterday, 14.2 earlier this month. States she has been taking NSAIDs daily since having a root canal. Did notice some black stools over the past day or 2, nothing today. No bowel movement today. Stable on room air. Afebrile overnight. No nausea or vomiting Medical Exam Vital signs and Labs for Last 24 Hours: Vital Signs Temp Pulse Pulse Resp BP BP Pulse Ox 11/21/23 08:40 97.5 F L 88 16 114/57 L 96 11/21/23 08:00 98.7 F 77 21 115/62 98 11/21/23 07:00 11/21/23 05:00 11/21/23 04:00 98.4 F 80 17 122/77 98 11/21/23 03:00 11/21/23 01:00 11/20/23 23:00 11/20/23 21:25 98.0 F 84 17 120/70 97 11/20/23 21:09 98 F 84 18 111/69 11/20/23 21:00 11/20/23 19:39 94 H 111/69 98 11/20/23 16:30 102 H 107/65 L 96 11/20/23 16:00 103 H 115/61 97 11/20/23 15:31 108 H 132/69 96 11/20/23 15:16 98.2 F 18 118/69 95 O2 Del Method 11/21/23 08:40 Room Air 11/21/23 08:00 Room Air 11/21/23 07:00 Room Air 11/21/23 05:00 Room Air 11/21/23 04:00 Room Air 11/21/23 03:00 Room Air 11/21/23 01:00 Room Air 11/20/23 23:00 Room Air 11/20/23 21:25 Room Air 11/20/23 21:09 Room Air 11/20/23 21:00 Room Air 11/20/23 19:39 11/20/23 16:30 Room Air 11/20/23 16:00 Room Air 11/20/23 15:31 Room Air 11/20/23 15:16 Room Air Intake and Output 11/20/23 11/21/23 11/21/23 23:59 07:59 15:59 Intake Total 626 / 1166 540 / 1166 Output Total 0 / 0 0 / 0 0 / 0 Balance 0 / 0 626 / 1166 540 / 1166 Intake: Intake, Oral Amount 540 / 540 Intake, Total IV Amount 626 / 626 0.9 % Sodium Chloride 1000ML 1, 626 / 626 000 ml @ 75 mls/hr IV .[id number] [facility] Rx#:[id number] Output: Output, Urine Amount 0 / 0 0 / 0 0 / 0 Other: Number of Unmeasured Voids 1 1 1 Weight 95.98 kg 95.98 kg Patient Weight 11/21/23 23:59 Weight 95.98 kg Laboratory Results - last 24 hr 11/20/23 15:25: WBC 18.3 H, RBC 3.62 L, Hgb 11.6 L, Hct 36.4 L, MCV 100.6 H, MCH 32.0 H, MCHC 31.8, RDW 14.7, Plt Count 444 H, MPV 8.9, Neut % (Auto) 80.5 H, Lymph % (Auto) 14.5, [place] % (Auto) 3.3, Eos % (Auto) 1.1, Baso % (Auto) 0.6, Neut # (Auto) 14.8 H, Lymph # (Auto) 2.7, [place] # (Auto) 0.6, Eos # (Auto) 0.2, Baso # (Auto) 0.1, Total Counted 100, Neutrophils % (Manual) 80 H, Lymphocytes % (Manual) 16, Monocytes % (Manual) 3, Eosinophils % (Manual) 1, Platelet Estimate Slight increase, RBC Morphology Normal, Anisocytosis 1+, Macrocytosis 1+, VBG pH 7.35, VBG pCO2 39.0, VBG pO2 46.6 H, VBG HCO3 20.9 L, VBG Total CO2 22.1 L, VBG O2 Saturation 78.1 H, VBG Base Excess -4.8 L, VBG Lactic Acid 3.4 H, Sodium 137, Potassium 4.1, Chloride 109 H, Carbon Dioxide 22, Anion Gap 10.1, BUN 51 H, Creatinine 0.70, Estimated Creat Clear 89, Estimated GFR 85, Est GFR ( Amer) 103, Glucose 246 H, Calcium 8.9, Total Bilirubin 0.5, AST 31, ALT 32, Alkaline Phosphatase 71, Total Protein 6.2 L, Albumin 3.9, Globulin 2.3, Albumin/Globulin Ratio 1.7, Lipase 103, TSH 0.92, Free T4 0.99 11/20/23 17:00: Urine Color Yellow, Urine Appearance Clear, Urine pH 6.0, Ur Specific [place] 1.015, Urine Protein Negative, Urine Glucose (UA) 3+, Urine Ketones Trace, Urine Blood Negative, Urine Nitrate Negative, Urine Bilirubin Negative, Urine Urobilinogen 0.2, Ur Leukocyte Esterase Negative, Urine RBC None, Urine WBC Occasional, Ur Squamous Epith Cells Occasional, Urine Bacteria None 11/20/23 21:35: Lactate 2.2 H 11/20/23 23:53: Lactate 1.0 11/21/23 06:22: WBC 10.1 D, RBC 2.81 L, Hgb 9.1 L D, Hct 27.9 L, MCV 99.3 H, MCH 32.5 H, MCHC 32.8, RDW 15.1, Plt Count 315 D, MPV 8.5, Neut % (Auto) 63.3, Lymph % (Auto) 30.0, [place] % (Auto) 4.0, Eos % (Auto) 2.0, Baso % (Auto) 0.6, Neut # (Auto) 6.4, Lymph # (Auto) 3.0, [place] # (Auto) 0.4, Eos # (Auto) 0.2, Baso # (Auto) 0.1, Sodium 137, Potassium 3.4 L, Chloride 111 H, Carbon Dioxide 24, Anion Gap 5.4, BUN 31 H D, Creatinine 0.60, Estimated Creat Clear 90, Estimated GFR 102, Est GFR ( Amer) 123, Glucose 125 H D, Calcium 8.2 L, Magnesium 2.0, Total Bilirubin 0.4, AST 26, ALT 22 D, Alkaline Phosphatase 63, Total Protein 5.2 L, Albumin 3.0 L D, Globulin 2.2, Albumin/Globulin Ratio 1.4 11/21/23 08:09: POC Glucose 141 H 11/21/23 10:20: POC Glucose 151 H I & O for Labs for Last 24 Hours: Intake & Output 03/11/19/23 11/20/23 11/21/23 23:59 23:59 23:59 23:59 Intake Total 1166 / 1166 Output Total 0 / 0 0 / 0 Balance 0 / 0 1166 / 1166 Weight 95.98 kg 95.98 kg Constitutional: Present no acute distress, obese and cooperative Head: Present atraumatic and normocephalic ENT: Present normal exam Neck: Present normal inspection Respiratory: Present normal respiratory effort; Absent rhonchi, wheezes or crackles Cardiac: Present Reg Rate and Rhythm GI: Present soft and normal bowel sounds; Absent distention or tenderness Extremities: Present normal inspection and full ROM Skin: Present intact; Absent erythema Neuro: Present Grossly Intact, alert, awake, oriented x 3 and moves all extremities Assessment and Plan *Assessment and plan (1) Upper GI bleed: Status: Acute Category: Medical Code(s): K92.2 - Gastrointestinal hemorrhage, unspecified (2) Melena: Status: Acute Category: Medical Code(s): K92.1 - Melena (3) Syncope: Status: Acute Qualifiers: Syncope type: unspecified Qualified Code(s): R55 - Syncope and collapse Category: Medical Code(s): R55 - Syncope and collapse (4) Hematoma of parietal scalp: Status: Acute Category: Medical Code(s): S00.03XA - Contusion of scalp, initial encounter (5) Diabetes: Status: Chronic Qualifiers: Diabetes mellitus complication status: without complication Diabetes mellitus nursing home insulin use: without nursing home use Diabetes mellitus type: type 2 Qualified Code(s): E11.9 - Type 2 diabetes mellitus without complications Category: Medical Code(s): E11.9 - Type 2 diabetes mellitus without complications (6) Migraine: Status: Acute Qualifiers: Intractability: not intractable Migraine type: unspecified Status migrainosus presence: without status migrainosus Qualified Code(s): G43.909 - Migraine, unspecified, not intractable, without status migrainosus Category: Medical Code(s): G43.909 - Migraine, unspecified, not intractable, without status migrainosus (7) Obesity (BMI 30-39.9): Status: Acute Category: Medical Code(s): E66.9 - Obesity, unspecified Plan 63-year-old diabetic female on trulicity. She has recently been having some issues to obtain it ending with difficult control of blood glucose. Today she had a syncopal episode where she states that she had passed out. She stated she went to drink water when she was on her way back when she had an episode of syncope falling backward striking her head with loss of consciousness. She has a slight posterior headache, denies other trauma at this time. She had a formed black stool earlier today. on arrival, patient alert and oriented, Initial workup WBC of 18.3 with an acute anemia of 11.6 with baseline of 14.2, patient has hyperglycemia of 246, UA looks negative. Given these findings there is a concern for upper GI bleed is high. Case was discussed with ED and Dr. Chacon who agrees patient would benefit from upper GI endoscopy, requested admission for further management. Medicine agreed to admit. Taken for EGD. Continues to require inpatient management. Problems addressed as follows: -Syncope, suspected anemia secondary to GI bleed: Hematoma of the scalp. No actionable Anemia, due to blood loss Surgery took patient for EGD this morning. Discussed case with surgeon. Concern for NSAID induced irritation. Found to have erosive antral gastritis. Several shallow punctate erosions. No active bleeding. Moderate duodenitis. Continue pantoprazole 40 mg IV twice daily. Will initiate sucralfate 4 times a day and misoprostol 4 times a day 200 mg p.o. Serial H&H, hemoglobin low this morning at 9.1. Repeat H&H this afternoon. Repeat CBC, CMP, magnesium ordered for the morning Transfusion threshold hemoglobin less than 7 -Diabetes: Last A1c 6.6. Continue sliding scale insulin with fingersticks ACHS glucose 125 on morning labs., Migraine: continue home rimegepant as needed Full code DVT prophylaxis contraindicated Clear liquid diet
[2023-11-21 18:07] LABS: Hematocrit 24.7 % (37.0-47.0)
--- NOTE | 2023-11-21 18:18 | PC.NURSE ---
Patient a&ox4 and vss. Patient hed EGD today and post op vital signs stable. Patient states having one dark stool, this RN didn't observe, MD aware.
[2023-11-21 18:22] LABS: Hemoglobin 8.5 g/dL (12.2-16.2)
[2023-11-21] MEDS: miSOPROStoL 200 MCG TABLET PO (18:53)
[2023-11-21] MEDS: SUCRALFATE 1GM TABLET 1 GM PO (20:26)
[2023-11-21 20:43] LABS: POC Glucose,Bedside 150 (70-110)
[2023-11-22] VITALS (15 sets, daily range): BP systolic 101–145; BP diastolic 45–70; PULSE 76–88; RESP 16–24; TEMP 36.8–37.1; O2SAT 94–100; BMI 37.0
[2023-11-22] MEDS: miSOPROStoL 200 MCG TABLET PO ×4 (00:11→17:57)
[2023-11-22] MEDS: 0.9 % SODIUM CHLORIDE 1000ML 1,000 ML 75 ML IV (02:45)
[2023-11-22] MEDS: SUCRALFATE 1GM TABLET 1 GM PO ×4 (05:59→20:04)
[2023-11-22 06:11] LABS: POC Glucose,Bedside 134 (70-110)
--- NOTE | 2023-11-22 06:34 | PC.NURSE ---
at beginning of shift pt report black tarry stool - reported to [employer] INTELLIGENCE CONSULTANT. added hat to toilet to check next stool, no stools since. otherwise no acute changes
[2023-11-22 06:39] LABS: Basophils # 0.1 K/mm3 (0-0.2); Basophils % 0.6 % (0.1-2.0); Eosinophils # 0.3 K/mm3 (0.0-0.4); Eosinophils % 3.3 % (0.1-12.0); Hemoglobin 8.1 g/dL (12.2-16.2); Lymphocytes # 2.9 K/mm3 (0.7-4.5); Lymphocytes % 30.5 % (10-50); Mean Corpuscular HGB Conc 32.6 g/dL (31.8-35.4); Mean Corpuscular Hemoglobin 32.2 pg (27.0-31.2); Mean Platelet Volume 8.2 fl (7.4-10.4); Monocytes # 0.4 K/mm3 (0.1-1.0); Monocytes % 4.3 % (1.7-9.3); Neutrophils # 5.8 K/mm3 (1.8-7.8); Neutrophils % 61.3 % (37.0-80.0); Platelet Count 299 K/mm3 (142-424); Red Blood Count 2.53 M/mm3 (4.20-5.40); Red Cell Distribution Width 15.2 % (11.5-17.5); White Blood Count 9.5 K/mm3 (4.8-10.8)
[2023-11-22 06:49] LABS: Chloride 114 mmol/L (98-107)
[2023-11-22 06:50] LABS: Potassium 3.8 mmoL/L (3.5-5.1); Sodium 139 mmol/L (136-145)
[2023-11-22 06:52] LABS: Alanine Aminotransferase 20 U/L (12-78); Aspartate Amino Transferase 26 U/L (14-36); Blood Urea Nitrogen 15 mg/dl (7-17); Creatinine Clearance Estimated 92 mL/min (50-200); Estimated Glomerular Filt Rate 102 ml/min (>60); GFR (African American) 123 ML/MIN (>60)
[2023-11-22 06:53] LABS: Albumin Level 2.7 g/dl (3.5-5.0); Albumin/Globulin Ratio 1.4 (1.1-1.8); Alkaline Phosphatase 58 U/L (38-126); Anion Gap 2.8 mEq/L (5-15); Bilirubin,Total 0.3 mg/dl (0.2-1.3); Carbon Dioxide 26 mmol/L (22.0-30.0); Globulin 1.9 g/dL (1.3-3.2); Glucose 123 mg/dl (74-100); Total Protein,Serum 4.6 g/dl (6.3-8.2)
--- NOTE | 2023-11-22 08:54 | P.PN_ITS ---
Subjective Patient reports: no new complaints Narrative: The patient states that she feels a little dizzy when getting up . Exam Data for Last 24 hours Vital signs and Labs for Last 24 Hours: Temp Pulse Resp BP Pulse Ox O2 Del Method 98.6 F 83 24 122/68 100 Room Air 11/22/23 08:00 11/22/23 08:00 11/22/23 08:00 11/22/23 08:00 11/22/23 08:00 11/22/23 08:00 Laboratory Results - last 24 hr 11/21/23 10:20: POC Glucose 151 H 11/21/23 17:05: Hgb 8.5 L, Hct 24.7 L 11/21/23 20:24: POC Glucose 150 H 11/22/23 05:58: WBC 9.5, RBC 2.53 L, Hgb 8.1 L, Hct 25.0 L, MCV 99.0, MCH 32.2 H , MCHC 32.6, RDW 15.2, Plt Count 299, MPV 8.2, Neut % (Auto) 61.3, Lymph % (Auto) 30.5, [place] % (Auto) 4.3, Eos % (Auto) 3.3, Baso % (Auto) 0.6, Neut # (Auto) 5.8, Lymph # (Auto) 2.9, [place] # (Auto) 0.4, Eos # (Auto) 0.3, Baso # (Auto) 0.1, Sodium 139, Potassium 3.8, Chloride 114 H, Carbon Dioxide 26, Anion Gap 2.8 L, BUN 15 D, Creatinine 0.60, Estimated Creat Clear 92, Estimated GFR 102, Est GFR ( Amer) 123, Glucose 123 H, Calcium 8.0 L, Magnesium 2.0, Total Bilirubin 0.3, AST 26, ALT 20, Alkaline Phosphatase 58, Total Protein 4.6 L, Albumin 2.7 L, Globulin 1.9, Albumin/Globulin Ratio 1.4, Blood Type A Positive, Antibody Screen Negative, Crossmatch (G) See Detail 11/22/23 06:03: POC Glucose 134 H 11/22/23 : Blood Type Confirm A Positive I & O for Last 24 hours: Intake & Output 03/24/24 03/25/24 03/26/24 03/27/24 11:59 11:59 11:59 11:59 Intake Total 626 / 626 2335 / 2335 Output Total 0 / 0 2 / 2 Balance 626 / 626 2333 / 2333 Weight 211 lb 9.595 oz 217 lb Constitutional Constitutional: no acute distress *Routine Respiratory Exam Respiratory: Absent respiratory distress *Routine Cardiovascular Exam Cardiovascular: Absent tachycardia *Routine Abdominal Exam Abdominal: Present soft Progress Note: A&P Assessment and plan (1) Upper GI bleed: Status: Acute Assessment and plan: Presumably secondary to gastritis. Morning hemoglobin 8.1 (likely equilibration). No definitive evidence of ongoing blood loss; however, close ongoing observation warranted. The patient is symptomatic and will likely undergo blood transfusion today. (2) Gastritis: Status: Acute Assessment and plan: Continue current medical therapy Assessment and Plan Assessment and Plan for All Diagnoses:: Full liquid diet ordered. She will be made n.p.o. after midnight in the unlikely event of requiring repeat endoscopic evaluation.
[2023-11-22] MEDS: PANTOPRAZOLE 40MG VIAL 40 MG IV ×2 (08:58→20:04)
[2023-11-22] MEDS: SODIUM CHLORIDE 0.9% 10ML VIAL 10 ML IV ×2 (08:58→20:05)
[2023-11-22] MEDS: 0.9 % SODIUM CHLORIDE 250 ML 25 ML IV (08:58)
[2023-11-22 11:53] LABS: POC Glucose,Bedside 183 (70-110)
--- NOTE | 2023-11-22 12:31 | EXP.ACUTE.PN ---
Subjective *Date: 11/22/23 *Time: 12:33 Interval history: Patient dizzy over the past 24 hours. Stools turning more brown, no further black stool. No nausea or vomiting. No chest pain. Hemoglobin decreased again this morning to 8.1. On room air. Medical Exam Vital signs and Labs for Last 24 Hours: Vital Signs Temp Pulse Pulse Resp BP BP Pulse Ox 11/22/23 11:55 98.7 F 80 17 113/65 100 11/22/23 11:40 98.7 F 80 18 117/63 99 11/22/23 11:25 98.7 F 80 18 122/68 99 11/22/23 11:10 98.5 F 81 18 135/69 98 11/22/23 11:05 98.5 F 81 18 133/65 99 11/22/23 11:00 98.5 F 79 17 126/70 98 11/22/23 10:58 11/22/23 10:55 98.7 F 81 17 130/45 L 97 11/22/23 10:49 98.7 F 88 17 145/67 H 98 11/22/23 09:00 11/22/23 08:00 11/22/23 08:00 98.6 F 83 24 122/68 100 11/22/23 06:29 11/22/23 04:18 11/22/23 04:00 98.4 F 80 18 101/66 L 94 L 11/22/23 03:00 11/22/23 01:00 11/21/23 23:00 11/21/23 21:00 11/21/23 20:00 11/21/23 20:00 98.4 F 80 18 131/66 98 11/21/23 16:00 98.1 F 79 18 112/58 L 97 11/21/23 13:00 98.5 F 83 17 129/75 96 O2 Del Method 11/22/23 11:55 11/22/23 11:40 11/22/23 11:25 11/22/23 11:10 11/22/23 11:05 11/22/23 11:00 11/22/23 10:58 Room Air 11/22/23 10:55 11/22/23 10:49 11/22/23 09:00 Room Air 11/22/23 08:00 Room Air 11/22/23 08:00 Room Air 11/22/23 06:29 Room Air 11/22/23 04:18 Room Air 11/22/23 04:00 Room Air 11/22/23 03:00 Room Air 11/22/23 01:00 Room Air 11/21/23 23:00 Room Air 11/21/23 21:00 Room Air 11/21/23 20:00 Room Air 11/21/23 20:00 Room Air 11/21/23 16:00 Room Air 11/21/23 13:00 Room Air Intake and Output 11/21/23 11/22/23 11/22/23 23:59 07:59 15:59 Intake Total 870 / 2036 805 / 925 120 / 925 Output Total 2 / 2 0 / 0 0 / 0 Balance 868 / 2034 805 / 925 120 / 925 Intake: Intake, Oral Amount 870 / 1410 120 / 120 Intake, Total IV Amount 805 / 805 0.9 % Sodium Chloride 1000ML 1, 805 / 805 000 ml @ 75 mls/hr IV .[id number] [facility] Rx#:[id number] Intake (Blood Product) Amt 0 / 0 Red Blood Cells Unit 0 / 0 [id number] Output: Output, Urine Amount 2 / 2 0 / 0 0 / 0 Other: Number of Unmeasured Voids 0 1 1 Number of Bowel Movements 1 2 Weight 98.43 kg Patient Weight 11/22/23 23:59 Weight 98.43 kg Laboratory Results - last 24 hr 11/21/23 17:05: Hgb 8.5 L, Hct 24.7 L 11/21/23 20:24: POC Glucose 150 H 11/22/23 05:58: WBC 9.5, RBC 2.53 L, Hgb 8.1 L, Hct 25.0 L, MCV 99.0, MCH 32.2 H, MCHC 32.6, RDW 15.2, Plt Count 299, MPV 8.2, Neut % (Auto) 61.3, Lymph % (Auto) 30.5, [place] % (Auto) 4.3, Eos % (Auto) 3.3, Baso % (Auto) 0.6, Neut # (Auto) 5.8, Lymph # (Auto) 2.9, [place] # (Auto) 0.4, Eos # (Auto) 0.3, Baso # (Auto) 0.1, Sodium 139, Potassium 3.8, Chloride 114 H, Carbon Dioxide 26, Anion Gap 2.8 L, BUN 15 D, Creatinine 0.60, Estimated Creat Clear 92, Estimated GFR 102, Est GFR ( Amer) 123, Glucose 123 H, Calcium 8.0 L, Magnesium 2.0, Total Bilirubin 0.3, AST 26, ALT 20, Alkaline Phosphatase 58, Total Protein 4.6 L, Albumin 2.7 L, Globulin 1.9, Albumin/Globulin Ratio 1.4, Blood Type A Positive, Antibody Screen Negative, Crossmatch (AHG) See Detail 11/22/23 06:03: POC Glucose 134 H 11/22/23 11:25: POC Glucose 183 H 11/22/23 : Blood Type Confirm A Positive I & O for Labs for Last 24 Hours: Intake & Output 11/19/23 11/20/23 11/21/23 11/22/23 23:59 23:59 23:59 23:59 Intake Total 2035 925 / 925 Output Total 0 / 0 2 / 2 0 / 0 Balance 0 / 0 2033 925 / 925 Weight 95.98 kg 95.98 kg 98.43 kg Constitutional: Present no acute distress, obese and cooperative Head: Present atraumatic and normocephalic ENT: Present normal exam Neck: Present normal inspection Respiratory: Present normal respiratory effort; Absent rhonchi, wheezes or crackles Cardiac: Present Reg Rate and Rhythm GI: Present soft and normal bowel sounds; Absent distention or tenderness Extremities: Present normal inspection and full ROM Skin: Present intact; Absent erythema Neuro: Present Grossly Intact, alert, awake, oriented x 3 and moves all extremities Assessment and Plan *Assessment and plan (1) Upper GI bleed: Status: Acute Category: Medical Code(s): K92.2 - Gastrointestinal hemorrhage, unspecified (2) Acute blood loss anemia: Status: Acute Category: Medical Code(s): D62 - Acute posthemorrhagic anemia (3) Melena: Status: Acute Category: Medical Code(s): K92.1 - Melena (4) Syncope: Status: Acute Qualifiers: Syncope type: unspecified Qualified Code(s): R55 - Syncope and collapse Category: Medical Code(s): R55 - Syncope and collapse (5) Hematoma of parietal scalp: Status: Acute Category: Medical Code(s): S00.03XA - Contusion of scalp, initial encounter (6) Diabetes: Status: Chronic Qualifiers: Diabetes mellitus complication status: without complication Diabetes mellitus longterm insulin use: without intermediate card tender use Diabetes mellitus type: type 2 Qualified Code(s): E11.9 - Type 2 diabetes mellitus without complications Category: Medical Code(s): E11.9 - Type 2 diabetes mellitus without complications (7) Migraine: Status: Acute Qualifiers: Intractability: not intractable Migraine type: unspecified Status migrainosus presence: without status migrainosus Qualified Code(s): G43.909 - Migraine, unspecified, not intractable, without status migrainosus Category: Medical Code(s): G43.909 - Migraine, unspecified, not intractable, without status migrainosus (8) Obesity (BMI 30-39.9): Status: Acute Category: Medical Code(s): E66.9 - Obesity, unspecified Plan 63-year-old diabetic female on trulicity. She has recently been having some issues to obtain it ending with difficult control of blood glucose. Today she had a syncopal episode where she states that she had passed out. She stated she went to drink water when she was on her way back when she had an episode of syncope falling backward striking her head with loss of consciousness. She has a slight posterior headache, denies other trauma at this time. She had a formed black stool earlier today. on arrival, patient alert and oriented, Initial workup WBC of 18.3 with an acute anemia of 11.6 with baseline of 14.2, patient has hyperglycemia of 246, UA looks negative. Given these findings there is a concern for upper GI bleed is high. Case was discussed with ED and Dr. Chacon who agrees patient would benefit from upper GI endoscopy, requested admission for further management. Medicine agreed to admit. EGD found irritation and source of previous bleed. Hemoglobin low this morning, appears to be equilibrating however. Continues to require inpatient management. Will transfuse x 1 today. If stable tomorrow, anticipate discharge home. Problems addressed as follows: -Syncope, suspected anemia secondary to GI bleed: Hematoma of the scalp. No actionable Anemia, due to blood loss Discussed case with surgery. Status post EGD yesterday. Stools improving. Recommend continuing pantoprazole, misoprostol, sucralfate. Given her dizziness, clinically symptomatic from her significant anemia. Has dropped from hemoglobin of 14 to hemoglobin of 8 in the span of 2 weeks. Will transfuse 1 unit packed red blood cells today. Repeat H&H 2 hours after transfusion. If hemoglobin stable in the morning tomorrow, anticipate discharge home with continued medical management. - Continue pantoprazole 40 mg IV twice daily, sucralfate 4 times a day and misoprostol 4 times a day 200 mg p.o. - Repeat H&H this afternoon. Repeat CBC, CMP, magnesium ordered for the morning Diabetes: Last A1c 6.6. Glucose 123 this morning. No indication for sliding scale insulin Continue fingersticks ACHS. If glucose consistently above 200, will initiate sliding scale insulin. Migraine: continue home rimegepant as needed Full code DVT prophylaxis contraindicated Clear liquid diet
[2023-11-22 15:17] LABS: Hematocrit 26.4 % (37.0-47.0); Hemoglobin 8.3 g/dL (12.2-16.2)
--- NOTE | 2023-11-22 15:48 | PC.NURSE ---
Pt currently resting in bed. 1 unit of PRBCs transfused this shift. Pt tolerated well. notified of Post H&H. VS currently stable. No complaints/concerns voiced at this time. Call light within reach.
[2023-11-22] MEDS: FUROSEMIDE 40MG/4ML VIAL 40 MG IV (16:04)
[2023-11-22 16:52] LABS: POC Glucose,Bedside 130 (70-110)
[2023-11-22 20:11] LABS: POC Glucose,Bedside 298 (70-110)
[2023-11-22] MEDS: humaLOG 100 UNITS/ML 3ML VIAL (SSI) SQ (20:37)
[2023-11-23] MEDS: miSOPROStoL 200 MCG TABLET PO ×4 (00:37→17:32)
[2023-11-23 04:00] VITALS: BP 109/61; PULSE 75; RESP 20; TEMP 37.1; O2SAT 96; BMI 36.6
[2023-11-23] MEDS: SUCRALFATE 1GM TABLET 1 GM PO ×3 (06:01→16:40)
[2023-11-23 06:13] LABS: POC Glucose,Bedside 149 (70-110)
[2023-11-23 06:16] LABS: Alanine Aminotransferase 20 U/L (12-78); Albumin Level 2.9 g/dl (3.5-5.0); Albumin/Globulin Ratio 1.3 (1.1-1.8); Alkaline Phosphatase 59 U/L (38-126); Anion Gap 3.4 mEq/L (5-15); Aspartate Amino Transferase 21 U/L (14-36); Bilirubin,Total 0.4 mg/dl (0.2-1.3); Blood Urea Nitrogen 16 mg/dl (7-17); Calcium 8.1 mg/dl (8.4-10.2); Carbon Dioxide 29 mmol/L (22.0-30.0); Chloride 109 mmol/L (98-107); Creatinine Clearance Estimated 91 mL/min (50-200); Estimated Glomerular Filt Rate 102 ml/min (>60); GFR (African American) 123 ML/MIN (>60); Globulin 2.2 g/dL (1.3-3.2); Glucose 145 mg/dl (74-100); Potassium 3.4 mmoL/L (3.5-5.1); Sodium 138 mmol/L (136-145); Total Protein,Serum 5.1 g/dl (6.3-8.2)
[2023-11-23 06:35] LABS: Basophils # 0.1 K/mm3 (0-0.2); Basophils % 0.6 % (0.1-2.0); Eosinophils # 0.3 K/mm3 (0.0-0.4); Eosinophils % 2.9 % (0.1-12.0); Hematocrit 26.3 % (37.0-47.0); Hemoglobin 8.6 g/dL (12.2-16.2); Lymphocytes # 2.1 K/mm3 (0.7-4.5); Lymphocytes % 24.1 % (10-50); Mean Corpuscular HGB Conc 32.5 g/dL (31.8-35.4); Mean Corpuscular Hemoglobin 32.4 pg (27.0-31.2); Mean Corpuscular Volume 99.6 fl (81-99); Mean Platelet Volume 8.4 fl (7.4-10.4); Monocytes # 0.4 K/mm3 (0.1-1.0); Monocytes % 4.4 % (1.7-9.3); Platelet Count 296 K/mm3 (142-424); Red Blood Count 2.64 M/mm3 (4.20-5.40); Red Cell Distribution Width 15.5 % (11.5-17.5); White Blood Count 8.8 K/mm3 (4.8-10.8)
--- NOTE | 2023-11-23 07:26 | CT_ITS ---
FINAL REPORT TECHNIQUE: Pre-and postcontrast images of the abdomen were performed by computed tomography. Extensive 3-D reconstruction images were performed. A CTA was performed. This study was performed with techniques to keep radiation doses as low as reasonably achievable (ALARA). Individualized dose reduction techniques using automated exposure control or adjustment of mA and/or kV according to the patient''s size were employed. CLINICAL HISTORY: GI blood loss, melena FINDINGS: ABDOMEN/PELVIS: The lung bases are clear. The liver parenchyma is homogeneous. There is mild pneumobilia. Pneumobilia may be related to prior sphincterotomy. The gallbladder is surgically absent. The spleen, pancreas, and adrenals are normal. The left kidney has a lobular contour, may be related to prior infarcts or pyelonephritis. There is a stone in the left kidney measuring 1.5 cm. Multiple scattered diverticula are seen throughout the descending and sigmoid colon. The uterus is surgically absent. The urinary bladder is decompressed. CTA: The abdominal aorta is proper caliber. The SMA, celiac axis, and JOSIAH are patent. There is no significant stenosis or calcification. The renal arteries are patent bilaterally. The iliacs are normal. IMPRESSION: No acute GI bleed. Lobular contour of the left kidney, probably related to prior infarcts or pyelonephritis. Left renal stone. Reviewed, Interpreted and Dictated by Chato Palacios MD Transcribed by Kylie Madison Authenticated and [facility]
--- NOTE | 2023-11-23 07:28 | P.PN_ITS ---
Subjective Narrative: Patient had melanic stool yesterday. Feels well today. Has been tolerating a diet. Hemoglobin drifted to 8.1 with some symptomatology characterized by dizziness. Transfused a unit of packed red blood cells with hemoglobin this morning of 8.6. Exam Data for Last 24 hours Vital signs and Labs for Last 24 Hours: Temp Pulse Resp BP Pulse Ox O2 Del Method 98.8 F 75 20 109/61 L 96 Room Air 11/23/23 04:00 11/23/23 04:00 11/23/23 04:00 11/23/23 04:00 11/23/23 04:00 11/23/23 06:04 Laboratory Results - last 24 hr 11/22/23 05:58: Blood Type A Positive, Antibody Screen Negative, Crossmatch (AHG) See Detail 11/22/23 11:25: POC Glucose 183 H 11/22/23 15:00: Hgb 8.3 L, Hct 26.4 L 11/22/23 16:13: POC Glucose 130 H 11/22/23 20:02: POC Glucose 298 H 11/22/23 : Blood Type Confirm A Positive 11/23/23 05:48: WBC 8.8, RBC 2.64 L, Hgb 8.6 L, Hct 26.3 L, MCV 99.6 H, MCH 32.4 H, MCHC 32.5, RDW 15.5, Plt Count 296, MPV 8.4, Neut % (Auto) 68.0, Lymph % (Auto) 24.1, [place] % (Auto) 4.4, Eos % (Auto) 2.9, Baso % (Auto) 0.6, Neut # (Auto) 6.0, Lymph # (Auto) 2.1, [place] # (Auto) 0.4, Eos # (Auto) 0.3, Baso # (Auto) 0.1, Sodium 138, Potassium 3.4 L, Chloride 109 H, Carbon Dioxide 29, Anion Gap 3.4 L, BUN 16, Creatinine 0.60, Estimated Creat Clear 91, Estimated GFR 102, Est GFR ( Amer) 123, Glucose 145 H, Calcium 8.1 L, Total Bilirubin 0.4, AST 21, ALT 20, Alkaline Phosphatase 59, Total Protein 5.1 L, Albumin 2.9 L, Globulin 2.2, Albumin/Globulin Ratio 1.3 11/23/23 05:51: POC Glucose 149 H I & O for Last 24 hours: Intake & Output 11/20/23 11/21/23 11/22/23 11/23/23 11:59 11:59 11:59 11:59 Intake Total 626 / 626 2585 / 2585 1280 / 1280 Output Total 0 / 0 2 / 2 1750 / 1750 Balance 626 / 626 2583 / 2583 -470 / -470 Weight 211 lb 9.595 oz 217 lb 214 lb 9.6 oz Progress Note: A&P Assessment and plan (1) Upper GI bleed: Status: Acute Assessment and plan: Unclear if she is having equilibration or has some ongoing bleeding. I will obtain CT angio of the abdomen and pelvis. If this is unremarkable may require repeat EGD. (2) Acute blood loss anemia: Status: Acute (3) Melena: Status: Acute (4) Syncope: Status: Acute (5) Hematoma of parietal scalp: Status: Acute (6) Diabetes: Status: Chronic (7) Migraine: Status: Acute (8) Obesity (BMI 30-39.9): Status: Acute
--- NOTE | 2023-11-23 07:31 | EXP.DC.SUM ---
General Admission date:: 11/20/23 Discharge date: 11/23/23 HPI HPI HPI: Patient is a 63-year-old diabetic female on trulicity. She has recently been having some issues to obtain it ending with difficult control of blood glucose. Today she had a syncopal episode where she states that she had passed out. She had a formed black stool earlier today. Patient states that recently she had been taking approximately 4 Aleve 3 times a day for migraine and for a dental procedure that was recently done Evaluation in the emergency department reveals a white blood cell count of 18,000. She has a hemoglobin of 11.6. Recent hemoglobin of 14.2. BUN of 51 with creatinine of 0.70. Patient has no prior history of ulcers. Hospital Course Hospital Course Hospital Course: 63-year-old diabetic female on trulicity. She has recently been having some issues to obtain it ending with difficult control of blood glucose. Today she had a syncopal episode where she states that she had passed out. She stated she went to drink water when she was on her way back when she had an episode of syncope falling backward striking her head with loss of consciousness. She has a slight posterior headache, denies other trauma at this time. She had a formed black stool earlier today. on arrival, patient alert and oriented, Initial workup WBC of 18.3 with an acute anemia of 11.6 with baseline of 14.2, patient has hyperglycemia of 246, UA looks negative. Given these findings there is a concern for upper GI bleed is high. Case was discussed with ED and Dr. Chacon who agrees patient would benefit from upper GI endoscopy, requested admission for further management. Medicine agreed to admit. EGD found irritation and source of previous bleed. Hemoglobin continued to trend down. Was transfused 1 unit. Hemoglobin stable, meeting criteria for discharge home to continue medical management of peptic ulcer disease/gastritis. Close follow-up with surgery with repeat labs as an outpatient. Problems addressed as follows: -Syncope, suspected anemia secondary to GI bleed: Hematoma of the scalp. No actionable Anemia, due to blood loss Patient admitted for evaluation of possible GI bleed and anemia. During admission, her hemoglobin trended down to 8.1. She was scoped where EGD found punctate irritations but no active bleeding. Had some intermittent dark stools. Decision made to transfuse 1 unit packed red blood cells given patient's drop in hemoglobin from 14-8 in the span of 2 weeks along with her symptoms including syncope on presentation and dizziness with standing. Hemoglobin stabilized, 8.6 on day of discharge. Tolerating p.o. intake. Patient treated medically with pantoprazole IV twice daily, sucralfate 4 times a day and misoprostol 4 times a day. Will continue these medications at discharge. Close follow-up with surgery for possible repeat scope in the next 6 to 8 weeks and repeat labs in 1 to 2 weeks. Diabetes: Last A1c 6.6. Glucose less than 200 during admission. Continue home regimen at discharge. If glucose elevates and is unable to obtain GLP-1's due to insurance or cost, would benefit from initiation of low-dose long-acting insulin such as 10 units nightly to help maintain stable glucose levels. Migraine: continue home rimegepant as needed Total time spent on discharge 35 minutes in counseling, documentation, chart review, and direct care with patient. Exam Data for Last 24 hours Vital signs and Labs for Last 24 Hours: Temp Pulse Resp BP Pulse Ox O2 Del Method 98.8 F 75 20 109/61 L 96 Room Air 11/23/23 04:00 11/23/23 04:00 11/23/23 04:00 11/23/23 04:00 11/23/23 04:00 11/23/23 06:04 Laboratory Results - last 24 hr 11/22/23 05:58: Blood Type A Positive, Antibody Screen Negative, Crossmatch ([facility]) See Detail 11/22/23 11:25: POC Glucose 183 H 11/22/23 15:00: Hgb 8.3 L, Hct 26.4 L 11/22/23 16:13: POC Glucose 130 H 11/22/23 20:02: POC Glucose 298 H 11/22/23 : Blood Type Confirm A Positive 11/23/23 05:48: WBC 8.8, RBC 2.64 L, Hgb 8.6 L, Hct 26.3 L, MCV 99.6 H, MCH 32.4 H, MCHC 32.5, RDW 15.5, Plt Count 296, MPV 8.4, Neut % (Auto) 68.0, Lymph % (Auto) 24.1, Merrick % (Auto) 4.4, Eos % (Auto) 2.9, Baso % (Auto) 0.6, Neut # (Auto) 6.0, Lymph # (Auto) 2.1, Merrick # (Auto) 0.4, Eos # (Auto) 0.3, Baso # (Auto) 0.1, Sodium 138, Potassium 3.4 L, Chloride 109 H, Carbon Dioxide 29, Anion Gap 3.4 L, BUN 16, Creatinine 0.60, Estimated Creat Clear 91, Estimated GFR 102, Est GFR ( Amer) 123, Glucose 145 H, Calcium 8.1 L, Total Bilirubin 0.4, AST 21, ALT 20, Alkaline Phosphatase 59, Total Protein 5.1 L, Albumin 2.9 L, Globulin 2.2, Albumin/Globulin Ratio 1.3 11/23/23 05:51: POC Glucose 149 H I & O for Last 24 hours: Intake & Output 11/20/23 11/21/23 11/22/23 11/23/23 23:59 23:59 23:59 23:59 Intake Total 2035 / 2035 2455 / 2455 Output Total 0 / 0 / 1750 / 1750 Balance 0 / 0 2033 / 2033 705 / 705 Weight 95.98 kg 95.98 kg 98.43 kg 97.341 kg Constitutional Constitutional: no acute distress, obese and cooperative *Routine HEENT Exam Head: Present normocephalic Eye: Present EOMI and PERRL ENT: Present mucous membranes moist *Routine Neck Exam Neck: Present supple; Absent lymphadenopathy *Routine Respiratory Exam Respiratory: Present CTA bilaterally; Absent rhonchi or wheezes *Routine Cardiovascular Exam Cardiovascular: Present RRR *Routine Abdominal Exam Abdominal: Present soft and normoactive bowel sounds; Absent tenderness or distended *Routine Rectal Exam Patient deferred: visual exam *Routine Exam Patient deferred: external exam *Routine Extremities Exam Extremities: Absent cyanosis, clubbing or edema *Routine Skin Exam Skin: Present warm; Absent rash *Routine Neurological Exam Neurological: Present alert, oriented X3 and moving all extremities; Absent altered mental status Results Data Completed and Pending Labs on day of discharge: Labs from last 24 hours 11/23/23 11/23/23 11/22/23 05:51 05:48 Unknown WBC 8.8 RBC 2.64 L Hgb 8.6 L Hct 26.3 L MCV 99.6 H MCH 32.4 H MCHC 32.5 RDW 15.5 Plt Count 296 MPV 8.4 Neut % (Auto) 68.0 Lymph % (Auto) 24.1 Merrick % (Auto) 4.4 Eos % (Auto) 2.9 Baso % (Auto) 0.6 Neut # (Auto) 6.0 Lymph # (Auto) 2.1 Merrick # (Auto) 0.4 Eos # (Auto) 0.3 Baso # (Auto) 0.1 Sodium 138 Potassium 3.4 L Chloride 109 H Carbon Dioxide 29 Anion Gap 3.4 L BUN 16 Creatinine 0.60 Estimated Creat Clear 91 Estimated GFR 102 Est GFR ( Amer) 123 Glucose 145 H POC Glucose 149 H Calcium 8.1 L Total Bilirubin 0.4 AST 21 ALT 20 Alkaline Phosphatase 59 Total Protein 5.1 L Albumin 2.9 L Globulin 2.2 Albumin/Globulin Ratio 1.3 Blood Type Blood Type Confirm A Positive Antibody Screen Crossmatch ([facility]) 11/22/23 11/22/23 11/22/23 20:02 16:13 15:00 WBC RBC Hgb 8.3 L Hct 26.4 L MCV MCH MCHC RDW Plt Count MPV Neut % (Auto) Lymph % (Auto) Merrick % (Auto) Eos % (Auto) Baso % (Auto) Neut # (Auto) Lymph # (Auto) Merrick # (Auto) Eos # (Auto) Baso # (Auto) Sodium Potassium Chloride Carbon Dioxide Anion Gap BUN Creatinine Estimated Creat Clear Estimated GFR Est GFR ( Amer) Glucose POC Glucose 298 H 130 H Calcium Total Bilirubin AST ALT Alkaline Phosphatase Total Protein Albumin Globulin Albumin/Globulin Ratio Blood Type Blood Type Confirm Antibody Screen Crossmatch ([facility]) 11/22/23 11/22/23 11:25 05:58 WBC RBC Hgb Hct MCV MCH MCHC RDW Plt Count MPV Neut % (Auto) Lymph % (Auto) Merrick % (Auto) Eos % (Auto) Baso % (Auto) Neut # (Auto) Lymph # (Auto) Merrick # (Auto) Eos # (Auto) Baso # (Auto) Sodium Potassium Chloride Carbon Dioxide Anion Gap BUN Creatinine Estimated Creat Clear Estimated GFR Est GFR ( Amer) Glucose POC Glucose 183 H Calcium Total Bilirubin AST ALT Alkaline Phosphatase Total Protein Albumin Globulin Albumin/Globulin Ratio Blood Type A Positive Blood Type Confirm Antibody Screen Negative Crossmatch ([facility]) See Detail DS: Diagnosis Discharge Diagnosis (1) Upper GI bleed: Status: Acute Code(s): K92.2 - Gastrointestinal hemorrhage, unspecified (2) Acute blood loss anemia: Status: Acute Code(s): D62 - Acute posthemorrhagic anemia (3) Melena: Status: Acute Code(s): K92.1 - Melena (4) Syncope: Status: Acute Code(s): R55 - Syncope and collapse Qualifiers: Syncope type: unspecified Qualified Code(s): R55 - Syncope and collapse (5) Hematoma of parietal scalp: Status: Acute Code(s): S00.03XA - Contusion of scalp, initial encounter (6) Diabetes: Status: Chronic Code(s): E11.9 - Type 2 diabetes mellitus without complications Qualifiers: Diabetes mellitus complication status: without complication Diabetes mellitus adjunct faculty for medical terminology insulin use: without intermediate use Diabetes mellitus type: type 2 Qualified Code(s): E11.9 - Type 2 diabetes mellitus without complications (7) Migraine: Status: Chronic Code(s): G43.909 - Migraine, unspecified, not intractable, without status migrainosus Qualifiers: Intractability: not intractable Migraine type: unspecified Status migrainosus presence: without status migrainosus Qualified Code(s): G43.909 - Migraine, unspecified, not intractable, without status migrainosus (8) Obesity (BMI 30-39.9): Status: Acute Code(s): E66.9 - Obesity, unspecified Meds Home Medications and Allergies Home Medications Medication Instructions Recorded Confirmed Type blood sugar diagnostic (OneTouch #100 strips 02/24/23 11/20/23 Rx Ultra Test strips) pen needle, diabetic 32 gauge x #100 ea 04/26/23 11/20/23 Rx 5/32 (Comfort EZ Pen Smock) dapagliflozin propanediol 5 mg 5 mg PO DAILY #90 tabs 05/02/23 11/20/23 Rx tablet (Farxiga) ergocalciferol (vitamin D2) 1,250 50,000 unit PO QWEEK 90 days #14 05/02/23 11/20/23 Rx mcg (50,000 unit) capsule caps glipizide 10 mg tablet, extended 10 mg PO DAILY #90 tabs 05/02/23 11/20/23 Rx release 24 hr rimegepant 75 mg disintegrating 75 mg PO ONCE PRN migraine 11/07/23 11/21/23 Rx tablet (Nurtec ODT) headache #16 tabs dulaglutide 1.5 mg/0.5 mL 1.5 mg SQ WEEKLY 11/20/23 11/20/23 History subcutaneous pen injector (Trulicity) lisinopril 10 mg tablet 10 mg PO DAILY 11/21/23 11/21/23 History rosuvastatin 10 mg tablet 10 mg PO HS 11/21/23 11/21/23 History misoprostol 200 mcg tablet 200 mcg PO Q6H 5 days #20 tabs 11/23/23 Rx pantoprazole 40 mg tablet,delayed See Rx Instructions .Route 11/23/23 Rx release .COMPLEX #40 tabs sucralfate 1 gram tablet 1 g PO ACHS 14 days #56 tabs 11/23/23 Rx New Prescriptions to Start Prescriptions: misoprostol Vicente Gomez pantoprazole Patricia,Vicente sucralfate Vicente Gomez Allergies Allergy/AdvReac Type Severity Reaction Status Date / Time No Known Allergies Allergy Verified 11/07/23 09:51 Discharge Plan Disposition Patient Disposition: Home, Self-Care Condition: Fair Discharge Order Discharge Orders: Discharge Order (Routine); Ordered 11/23/23 Ordered By: Vicente Gomez Follow up Plan Follow up with: Donavon Chacon MD [Staff Physician] - 12/05/23 10:30 am Marilyn Rao PA [Primary Care Provider] - 11/27/23 2:45 pm Prescriptions/Medication Reconciliation: New sucralfate 1 gram Tablet 1 g PO ACHS 14 Days Qty: 56 0RF pantoprazole 40 mg tablet,delayed release (DR/EC) See Rx Instructions .ROUTE .COMPLEX Qty: 40 0RF Rx Instructions: 1 tablet twice daily for 10 days, once daily thereafter. misoprostol 200 mcg Tablet 200 mcg PO Q6H 5 Days Qty: 20 0RF Continued Nurtec ODT 75 mg tablet,disintegrating 75 mg PO ONCE PRN (Reason: migraine headache) Qty: 16 0RF Farxiga 5 mg tablet 5 mg PO DAILY Qty: 90 3RF ergocalciferol (vitamin D2) 1,250 mcg (50,000 unit) capsule 50,000 unit PO QWEEK 90 Days Qty: 14 3RF glipizide 10 mg tablet extended release 24hr 10 mg PO DAILY Qty: 90 3RF Trulicity 1.5 mg/0.5 mL pen injector 1.5 mg SQ WEEKLY rosuvastatin 10 mg tablet 10 mg PO HS Held lisinopril 10 mg tablet 10 mg PO DAILY Hold Instructions: pending follow-up with PCP or Surgery Discontinued aspirin 81 mg tablet,delayed release (DR/EC) 81 mg PO DAILY Qty: 90 3RF No Action (DME) OneTouch Ultra Test Strip See Rx Instructions .ROUTE .COMPLEX Qty: 100 12RF Dose Instruction: USE TO TEST BLOOD GLUCOSE THREE TIMES DAILY DIRECTED Rx Instructions: USE TO TEST BLOOD GLUCOSE THREE TIMES DAILY DIRECTED (DME) pen needle, diabetic [Comfort EZ Pen Smock] 32 gauge x 5/32 needle See Rx Instructions .Route Qty: 100 0RF Rx Instructions: daily Other Ambulatory Orders: Basic Metabolic Panel (Routine) Timeframe: 2 Days Facility: [facility] - Location: Laboratory Ordered By: Vicente Gomez Problem Reconciliation Problems Reviewed?: Yes Patient Discharge Instructions ACTIVITY: Continue current activity DIET: continue same diet Patient Instructions: DI for Syncope in Adults (Fainting), Anemia: How Food and Vitamins Can Help, Upper GI Endoscopy, DI for Gastrointestinal Bleeding Providers Primary Care Provider: Marilyn Rao Admit Provider: Vicente Gomez Attending Provider: Vicente Gomez
[2023-11-23] MEDS: IOPAMIDOL-370 (76%);100ML BOTTLE 100 ML IV (08:05)
[2023-11-23] MEDS: 0.9 % SODIUM CHLORIDE 50 ML VIAL IV (08:05)
[2023-11-23] MEDS: PANTOPRAZOLE 40MG VIAL 40 MG IV (09:16)
[2023-11-23] MEDS: SODIUM CHLORIDE 0.9% 10ML FLUSH SYRINGE 10 ML IV (09:18)
[2023-11-23 14:42] LABS: Hematocrit 26.5 % (37.0-47.0); Hemoglobin 8.7 g/dL (12.2-16.2)
[2023-11-23 15:40] VITALS: BP 128/69; PULSE 68; RESP 18; TEMP 36.6; O2SAT 97
--- NOTE | 2023-11-23 16:12 | HMH.PHAINT1 ---
Pharmacy Intervention Comments: DISCHARGE MEDICATION COUNSELING PROVIDED TO PATIENT ON PANTOPRAZOLE, SUCRALOFATE, AND MISOPROSTOL FOR INDICATION AND POSSIBLE SIDE EFFECTS. DISCUSSED HOLDING LISINOPRIL UNTIL FOLLOW UP AND STOPPING THE ASPIRIN. PATIENT VERBALIZED UNDERSTANDING AND HAD NO FURTHER QUESTIONS.
[2023-11-23 16:52] LABS: POC Glucose,Bedside 133 (70-110)
[2023-11-23 20:16] LABS: POC Glucose,Bedside 158 (70-110)
--- NOTE | 2023-11-24 11:25 | CARE MANAGER ---
Contacted patient related to hospital discharge. She is doing well, but is tired. She denies questions or concerns. She has her medications and is aware what to hold and not take until her appointments. She is aware of her follow up appointments. DAVIE Rogers
== END 2023-11-23 17:54 | disposition home or self-care (01) | DRG 378 ==
LOC: ER 20:07 → 2ND 20:14
PROVIDERS: Nurse Practitioner Family; Surgery; Admitting Provider Internal Medicine Adolescent Medicine; Emergency Provider Emergency Medicine; PCP Physician Assistant; Visit Provider Internal Medicine Adolescent Medicine
PROC: 0DJ08ZZ Inspection of Upper Intestinal Tract, Via Natural or Artificial Opening Endoscopic (ICD-10-PCS; CPT 43235; principal; 2023-11-21 08:25)
DX: K29.71 Gastritis, unspecified, with bleeding (principal); D62 Acute posthemorrhagic anemia; K29.81 Duodenitis with bleeding; S00.03XA Contusion of scalp, initial encounter; E11.9 Type 2 diabetes mellitus without complications; G43.909 Migraine, unspecified, not intractable, without status migrainosus; E11.8 Type 2 diabetes mellitus with unspecified complications; Z79.85 Long-term (current) use of injectable non-insulin antidiabetic drugs; E66.9 Obesity, unspecified
CPT/HCPCS: 43235; 36415; 70450; 71045; 74174; 80053; 81001; 82803; 82962; 83605; 83690; 83735; 84439; 84443; 85007; 85014; 85018; 85025; 86850; 93005; 99285; P9016; Q9967

== ENCOUNTER 2023-11-25 12:41 | Outpatient (CLI) | payer OTHER, SELFPAY ==
[2023-11-25 13:59] LABS: Chloride 109 mmol/L (98-107); Sodium 140 mmol/L (136-145)
[2023-11-25 14:02] LABS: Blood Urea Nitrogen 21 mg/dl (7-17); Estimated Glomerular Filt Rate 85 ml/min (>60); GFR (African American) 103 ML/MIN (>60)
[2023-11-25 14:03] LABS: Calcium 9.3 mg/dl (8.4-10.2); Carbon Dioxide 27 mmol/L (22.0-30.0); Glucose 195 mg/dl (74-100)
== END 2023-11-25 23:59 ==
LOC: LAB 12:42
PROVIDERS: PCP Physician Assistant; Visit Provider Internal Medicine Adolescent Medicine
DX: D62 Acute posthemorrhagic anemia (principal)
CPT/HCPCS: 36415; 80048

== ENCOUNTER 2023-12-01 09:29 | Outpatient (CLI) | payer OTHER, SELFPAY ==
[2023-12-01 09:54] LABS: Basophils # 0.1 K/mm3 (0-0.2); Basophils % 0.8 % (0.1-2.0); Eosinophils # 0.4 K/mm3 (0.0-0.4); Eosinophils % 4.3 % (0.1-12.0); Hematocrit 34.8 % (37.0-47.0); Hemoglobin 10.6 g/dL (12.2-16.2); Lymphocytes # 1.8 K/mm3 (0.7-4.5); Lymphocytes % 21.3 % (10-50); Mean Corpuscular HGB Conc 30.4 g/dL (31.8-35.4); Mean Corpuscular Volume 102.2 fl (81-99); Mean Platelet Volume 7.7 fl (7.4-10.4); Monocytes # 0.4 K/mm3 (0.1-1.0); Monocytes % 4.3 % (1.7-9.3); Neutrophils # 5.9 K/mm3 (1.8-7.8); Neutrophils % 69.3 % (37.0-80.0); Platelet Count 547 K/mm3 (142-424); Red Cell Distribution Width 15.7 % (11.5-17.5); White Blood Count 8.5 K/mm3 (4.8-10.8)
[2023-12-01 10:43] LABS: Iron 41 ug/dL (37-170)
[2023-12-01 10:53] LABS: Total Iron Binding Capacity 399 ug/dL (265-497)
[2023-12-01 11:20] LABS: Ferritin 14.5 ng/ml (11.1-264)
== END 2023-12-01 23:59 ==
LOC: LAB 09:29
PROVIDERS: PCP Physician Assistant; Visit Provider Physician Assistant
DX: D62 Acute posthemorrhagic anemia (principal)
CPT/HCPCS: 36415; 82728; 83540; 83550; 85025

== ENCOUNTER 2023-12-14 10:11 | Outpatient (CLI) | payer OTHER, SELFPAY ==
[2023-12-14 19:25] LABS: Creatinine,Urine Random 43 mg/dL (Not Estab.); Microalbumin < 6.000 mg/L (0-16.7)
== END 2023-12-14 23:59 ==
LOC: LAB.DROPOF 12-15 10:12
PROVIDERS: PCP Internal Medicine; Visit Provider Internal Medicine
DX: E11.9 Type 2 diabetes mellitus without complications (principal)
CPT/HCPCS: 82043; 82570

== ENCOUNTER 2024-01-29 12:47 | Outpatient (POV) | payer OTHER, SELFPAY ==
[2024-01-29 13:15] VITALS: BP 128/72; PULSE 82; RESP 18; O2SAT 97; BMI 35.2
--- NOTE | 2024-01-29 14:20 | EXP.PAIN.OV ---
HPI Data of Consult Patient: new to practice Consult date: 01/29/24 Requesting Physician: Lavern Orozco APRN Primary Care Provider: Lang Rios DO Consult Narrative Reason for consult: Neck pain, bilateral shoulder pain, headaches, migraine History of present illness: Ms. Juarez is a 63 year old female who presents today as a new patient. She is a referral from Hailey Hernandez's office. Today she rates her pain a 5 out of 10. Patient states all of her pain is within her neck with radiating symptoms to her bilateral shoulders and increased headaches and migraines. Patient states this has been going on for years and progressively worsened unrelated to any specific trauma or injury. 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 Patient does describe it as a constant aching, throbbing sensation with some numbness. She does state that she feels like she has a lot of tension and that a lot of it is stress related. Patient did lose her of 40+ years of marriage due to COVID a couple of years ago. Patient does state that she is continue to use Tylenol along with heat and ice and topicals such as Voltaren with minimal relief. Patient has been to a chiropractor that did help significantly and that she has tried recent chiropractor therapy however she has never found anyone who could do it as well as the previous one in [place]. Patient denies any prior surgery history or injection history. Patient does state that she is unable to have any NSAIDs due to a history of GI bleed that left her hospitalized just in October. She does state that she is scheduled for a repeat scope coming up. Patient does state that she is currently prescribed Nurtec for her headaches and migraines however her abortive medication was no longer covered by insurance. Her Arvind has been reviewed and is appropriate. CC: Lavern Orozco APRN [facility] Disclaimer: The information contained in this section may have been updated after the patient was seen, as this information can be updated by other users. Medical History Gastritis Hematoma of parietal scalp Cholecystectomy planned Depression Diabetes Surgical History History of esophagogastroduodenoscopy (EGD) H/O sinus surgery History of carpal tunnel surgery H/O: hysterectomy Family History (Updated 01/29/24 @ 13:16 by Fariba Brown RN) Other Unknown family medical history Social History (Updated 01/29/24 @ 13:17 by Fariba Brown RN) Smoking Status: Never smoker alcohol intake: never substance use type: denies use current occupational status: employed Travel in the last 8 weeks: None household members: spouse, family and children housing: house Review of Systems Review of Systems Review of systems:: pertinent systems reviewed and negative unless documented below Review of systems (narrative): Review of Systems: General: No recent weight changes, no fever, no sleep disturbances Respiratory: No cough, no shortness of air, no recurring pulmonary infections Cardiovascular/peripheral vascular: No chest pain, no palpitations, no edema, no shortness of breath Gastrointestinal: No new onset incontinence, normal bowel movements reported Genitourinary: No new onset incontinence Musculoskeletal: Neck pain, bilateral shoulder pain, headaches, migraines Psychiatric: [Normal mood/affect] Neurological: [Denies weakness in extremities], [denies balance issues] Meds Home Medications and Allergies Home Medications Medication Instructions Recorded Confirmed Type blood sugar diagnostic (OneTouch #100 strips 02/24/23 01/29/24 Rx Ultra Test strips) dapagliflozin propanediol 5 mg 5 mg PO DAILY #90 tabs 05/02/23 01/29/24 Rx tablet (Farxiga) ergocalciferol (vitamin D2) 1,250 50,000 unit PO QWEEK 90 days #14 05/02/23 01/29/24 Rx mcg (50,000 unit) capsule caps rimegepant 75 mg disintegrating 75 mg PO ONCE PRN migraine 11/07/23 01/29/24 Rx tablet (Nurtec ODT) headache #16 tabs rosuvastatin 10 mg tablet 10 mg PO HS 11/21/23 01/29/24 History pantoprazole 40 mg tablet,delayed 40 mg PO DAILY #30 tabs 12/12/23 01/29/24 Rx release (Protonix) cinnamon bark 500 mg capsule 2,000 mg PO DAILY 12/14/23 01/29/24 History (Cinnamon) loratadine 10 mg tablet (Claritin) 10 mg PO DAILY 12/14/23 01/29/24 History multivitamin (Daily Multi-Vitamin 1 tab PO DAILY 12/14/23 01/29/24 History tablet) omega 1-jzy-dmm-fish oil 1,200 mg 2 cap PO DAILY 12/14/23 01/29/24 History (144 mg-216 mg) capsule (Fish Oil) vitamin B complex-folic acid 0.4 2 tab PO DAILY 12/14/23 01/29/24 History mg tablet (Super B Maxi Complex) zinc acetate 50 mg (zinc) capsule 50 mg PO DAILY 12/14/23 01/29/24 History (Galzin) ascorbic acid (vitamin C) 500 mg 1,000 mg PO DAILY 01/08/24 01/29/24 History capsule atogepant 60 mg tablet (Qulipta) 60 mg PO DAILY #90 tabs 01/08/24 01/29/24 Rx cyclobenzaprine 10 mg tablet 10 mg PO TID PRN muscle spasm #30 01/08/24 01/29/24 Rx tabs dulaglutide 1.5 mg/0.5 mL 1.5 mg SQ DIRECTED Diabetes 01/08/24 01/29/24 History subcutaneous pen injector (Trulicity) lisinopril 10 mg tablet 10 mg PO DAILY 01/08/24 01/29/24 History sucralfate 1 gram tablet 1 g PO ACHS 30 days #30 tabs 01/18/24 01/29/24 Rx New Prescriptions to Start Prescriptions: Allergies Allergy/AdvReac Type Severity Reaction Status Date / Time No Known Allergies Allergy Verified 01/10/24 10:54 Objective Vital signs: Pulse Resp BP Pulse Ox O2 Del Method 82 18 128/72 97 Room Air 01/29/24 13:15 01/29/24 13:15 01/29/24 13:15 01/29/24 13:15 01/29/24 13:15 Narrative: Physical Exam: General: Alert and oriented x3, no acute distress, pleasant and cooperative Lungs: Respirations even and unlabored, symmetrical chest expansion Eyes: PERRL Musculoskeletal: Flexion and extension of cervical [spine] somewhat guarded secondary to pain, [antalgic gait noted] positive Spurling's test Neurological: Speech clear, no gross sensory deficit Assessment and Plan *Assessment and plan (1) Neck pain: Status: Acute Category: Medical Code(s): M54.2 - Cervicalgia (2) Cervical radiculopathy: Status: Acute Category: Medical Code(s): M54.12 - Radiculopathy, cervical region (3) Bilateral shoulder pain: Status: Acute Qualifiers: Chronicity: chronic Qualified Code(s): M25.511 - Pain in right shoulder; M25.512 - Pain in left shoulder; G89.29 - Other chronic pain Category: Medical Code(s): M25.511 - Pain in right shoulder; M25.512 - Pain in left shoulder Plan Patient is experiencing significant pain throughout her neck with radiating symptoms to her shoulders and increased headaches and migraines. I have discussed with the patient due to her limited range of motion of her cervical spine and positive Spurling's test that she may benefit from cervical epidural steroid injection. Risk and benefits were discussed with the patient and at this time she would like to wait. I will order the patient a compounding cream. I have also discussed with patient in future she may benefit from updated cervical imaging. We will follow-up with this at future visits. Patient will return to clinic in 1 month for reevaluation of symptoms and plan of care. Patient has been instructed to contact the clinic with any concerns before the next appointment. Dr. Riggins has reviewed this note and agrees with this plan of care. This note was dictated using voice recognition software and make contain errors or omissions.
== END 2024-01-29 23:59 | disposition home or self-care (01) ==
LOC: SC.PAIN 12:49
PROVIDERS: PCP Internal Medicine; Visit Provider Nurse Practitioner Family
DX: M54.12 Radiculopathy, cervical region (principal); M54.2 Cervicalgia; M25.511 Pain in right shoulder; G89.29 Other chronic pain; M25.512 Pain in left shoulder
CPT/HCPCS: 99202; G0463

== ENCOUNTER 2024-02-02 08:17 | Day surgery (SDC) | payer OTHER, SELFPAY ==
--- NOTE | 2024-02-02 07:53 | EXP.GEN.HP ---
HPI HPI HPI: Patient presents for followup EGD and initial colonoscopy. She had presented to the emergency department on 11/20/2023 with some syncopal episodes. She had been taking 4 Aleve 3 times a day for migraine and dental procedure preceding that. Evaluation in the emergency department revealed a hemoglobin of 11.6. She has baseline hemoglobin of approximately 14-15. I performed upper endoscopy on 11/21/2023 which revealed gastroesophageal junction at 36 cm, some old heme material in the gastric fundus but no evidence of any active or stigmata of recent bleeding. There were several shallow punctate exudative erosions and moderate duodenitis. During her admission her hemoglobin had trended down to 8.1 and she was transfused a unit of packed red blood cells and her hemoglobin stabilized at approximately 8.6. She was discharged on pantoprazole, sucralfate, and misoprostol. She had no additional clinical bleeding. She did have Cologuard a year ago which was negative. [facility] Disclaimer: The information contained in this section may have been updated after the patient was seen, as this information can be updated by other users. Medical History Gastritis Hematoma of parietal scalp Cholecystectomy planned Depression Diabetes Surgical History History of cholecystectomy History of esophagogastroduodenoscopy (EGD) H/O sinus surgery History of carpal tunnel surgery H/O: hysterectomy Family History Other Family history of cancer Social History Smoking Status: Never smoker alcohol intake: never substance use type: denies use current occupational status: employed and retired Travel in the last 8 weeks: None household members: spouse, family and children housing: house Meds Home Medications and Allergies Home Medications Medication Instructions Recorded Confirmed Type blood sugar diagnostic (PayverisTouch #100 strips 02/24/23 02/02/24 Rx Ultra Test strips) dapagliflozin propanediol 5 mg 5 mg PO DAILY #90 tabs 05/02/23 02/02/24 Rx tablet (Farxiga) ergocalciferol (vitamin D2) 1,250 50,000 unit PO QWEEK 90 days #14 05/02/23 02/02/24 Rx mcg (50,000 unit) capsule caps rimegepant 75 mg disintegrating 75 mg PO ONCE PRN migraine 11/07/23 02/02/24 Rx tablet (Nurtec ODT) headache #16 tabs rosuvastatin 10 mg tablet 10 mg PO HS 11/21/23 02/02/24 History pantoprazole 40 mg tablet,delayed 40 mg PO DAILY #30 tabs 12/12/23 02/02/24 Rx release (Protonix) cinnamon bark 500 mg capsule 2,000 mg PO DAILY 12/14/23 02/02/24 History (Cinnamon) loratadine 10 mg tablet (Claritin) 10 mg PO DAILY 12/14/23 02/02/24 History multivitamin (Daily Multi-Vitamin 1 tab PO DAILY 12/14/23 02/02/24 History tablet) omega 7-sml-ybf-fish oil 1,200 mg 2 cap PO DAILY 12/14/23 02/02/24 History (144 mg-216 mg) capsule (Fish Oil) vitamin B complex-folic acid 0.4 2 tab PO DAILY 12/14/23 02/02/24 History mg tablet (Super B Maxi Complex) zinc acetate 50 mg (zinc) capsule 50 mg PO DAILY 12/14/23 02/02/24 History (Galzin) ascorbic acid (vitamin C) 500 mg 1,000 mg PO DAILY 01/08/24 02/02/24 History capsule dulaglutide 1.5 mg/0.5 mL 1.5 mg SQ DIRECTED Diabetes 01/08/24 02/02/24 History subcutaneous pen injector (Trulicity) lisinopril 10 mg tablet 10 mg PO DAILY 01/08/24 02/02/24 History sucralfate 1 gram tablet 1 g PO ACHS 30 days #30 tabs 01/18/24 02/02/24 Rx semaglutide 0.25 mg or 0.5 mg (2 0.25 mg SQ WEEKLY 02/02/24 02/02/24 History mg/1.5 mL) subcutaneous pen injector (Ozempic) New Prescriptions to Start Prescriptions: Allergies Allergy/AdvReac Type Severity Reaction Status Date / Time No Known Allergies Allergy Verified 02/02/24 08:29 Exam Constitutional Constitutional: no acute distress *Routine HEENT Exam Head: Present normocephalic Eye: Present EOMI and PERRL ENT: Present mucous membranes moist *Routine Neck Exam Neck: Present supple; Absent lymphadenopathy *Routine Respiratory Exam Respiratory: Present CTA bilaterally *Routine Cardiovascular Exam Cardiovascular: Present RRR *Routine Abdominal Exam Abdominal: Present soft and normoactive bowel sounds; Absent tenderness *Routine Rectal Exam Rectal:: deferred *Routine Genitalia Exam Genitalia:: deferred *Routine Extremities Exam Extremities: Absent cyanosis, clubbing or edema *Routine Skin Exam Skin: Present warm; Absent rash *Routine Neurological Exam Neurological: Present alert and oriented X3 Assessment and Plan *Assessment and plan (1) Gastritis: Status: Acute Category: Medical Code(s): K29.70 - Gastritis, unspecified, without bleeding Plan I recommended repeat upper endoscopy after a period of medical treatment and even though she had a previous negative Cologuard testing recommend colonoscopy for completeness to evaluate for any occult small lesions and assess for possible terminal ileitis due to history of NSAID use.
[2024-02-02 08:32] VITALS: BP 144/76; PULSE 91; RESP 18; TEMP 36.4; O2SAT 99; BMI 35.2
[2024-02-02] MEDS: LACTATED RINGERS 1000ML 1,000 ML 25 ML IV (08:47)
[2024-02-02 08:57] LABS: POC Glucose,Bedside 162 (70-110)
--- NOTE | 2024-02-02 08:59 | EXP.ANES.CKL ---
[facility] Disclaimer: The information contained in this section may have been updated after the patient was seen, as this information can be updated by other users. Medical History Gastritis Hematoma of parietal scalp Cholecystectomy planned Depression Diabetes Surgical History History of cholecystectomy History of esophagogastroduodenoscopy (EGD) H/O sinus surgery History of carpal tunnel surgery H/O: hysterectomy Family History Other Family history of cancer Social History Smoking Status: Never smoker alcohol intake: never substance use type: denies use current occupational status: employed and retired Travel in the last 8 weeks: None household members: spouse, family and children housing: house [facility] Anesthesia Checklist Patient Identification Patient Identification: Arm Band and Verbal (Name & ) Structural Data Admitted From: Home Planned Operative Procedure/s: EGD/Colonoscopy Consent for Planned Operative Procedure(s) Verified: Yes Verified Documents: Surgical Consent NPO Status Verified Time NPO: 00:00 Chart Verification Results Verified: CBC and BMP Additional verifications Anesthesia Reactions: No Airway Assessment Mallampati Score:: Class III C-Spine Mobility Assessed: Yes TMJ Mobility Assessed: Yes Dentition: Good Dentition Neurological Assessment Level of Consciousness: Awake Hx Seizures: No Numbness or tingling in extremities: No Anesthesia Plan Anesthesia Risk discussed: Yes Anesthesia Plan: Verified ASA Class: II Anesthesia Type: MAC
[2024-02-02 09:18] VITALS: O2SAT 99
--- NOTE | 2024-02-02 09:50 | HMH.SCOPE ---
Procedure: Date: 02/02/24 Patient Date of :: 1960 Procedure Performed:: Esophagogastroduodenoscopy with biopsies Total colonoscopy to terminal ileum . Indications:: Patient presents for followup EGD and initial colonoscopy. She had presented to the emergency department on 11/20/2023 with some syncopal episodes. She had been taking 4 Aleve 3 times a day for migraine and dental procedure preceding that. Evaluation in the emergency department revealed a hemoglobin of 11.6. She has baseline hemoglobin of approximately 14-15. I performed upper endoscopy on 11/21/2023 which revealed gastroesophageal junction at 36 cm, some old heme material in the gastric fundus but no evidence of any active or stigmata of recent bleeding. There were several shallow punctate exudative erosions and moderate duodenitis. During her admission her hemoglobin had trended down to 8.1 and she was transfused a unit of packed red blood cells and her hemoglobin stabilized at approximately 8.6. She was discharged on pantoprazole, sucralfate, and misoprostol. She had no additional clinical bleeding. She did have Cologuard a year ago which was negative.I recommended repeat upper endoscopy after a period of medical treatment and even though she had a previous negative Cologuard testing recommend colonoscopy for completeness to evaluate for any occult small lesions and assess for possible terminal ileitis due to history of NSAID use. . Performing Provider:: Donavon Chacon MD Referring Provider:: Lang Rios Sedation:: MAC sedation Procedure:: Patient history was obtained and appropriate physical examination was performed. Patient's medications and allergies were reviewed. Informed consent was obtained after explaining the benefits, alternatives, and risks of the procedure including, but not limited to, bleeding, perforation, missed lesions, and adverse reaction to anesthesia medications. Patient was transported to endoscopy procedure room. Patient was connected to monitoring devices. Throughout the procedure the patient's blood pressure, pulse, and oxygen saturations were monitored continuously. Patient identification and planned procedure were verified by the staff. Patient was positioned in lateral decubitus position. Attention was first turned to upper endoscopy. Endoscope was inserted via the oropharynx. Esophagus was cannulated. Endoscope was advanced. Overall esophagus appeared relatively unremarkable. Gastroesophageal junction was encountered at approximately 38 cm. Stomach was cannulated and insufflated. There was some mild to moderate nonerosive diffuse gastropathy. There were no erosions. No ulcerations. Pylorus was traversed. Duodenum appeared normal. Endoscope was withdrawn into the stomach and a couple of gastric biopsies were obtained for histopathologic analysis and H. pylori assessment. Stomach was desufflated and the endoscope was withdrawn. Next attention was turned to colonoscopy. Digital anorectal exam was performed. Variable stiffness Olympus colonoscope was inserted and advanced under direct visualization to the cecum. Adequacy of the colonic preparation was noted. The colonoscope was advanced a short distance into the terminal ileum. The colonoscope was then slowly withdrawn while carefully examining the color, texture, anatomy, and integrity of the mucosoa circumferentially. Within the rectum retroflexion was performed. Colonoscope was then withdrawn. Findings:: Normal esophagus Gastroesophageal junction at 38 cm Mild to moderate nonerosive diffuse gastropathy/gastritis (previous ulcerations/erosions healed) Mild to moderate pandiverticulosis Nonbleeding internal hemorrhoids . Recommendations:: Follow-up on biopsies and H. pylori status on upper endoscopy. May be able to decrease medical management and discontinue Carafate. Possibly switch from proton pump inhibitor to H2 rico low-dose for prophylaxis. Would advocate repeat colonoscopy 5 to 7 years due to some mild spasticity and lack of relaxation of the colon. Complications:: None immediately apparent Estimated blood obtained (mL): 1 Colonoscopy Component Colonoscopy Component Was a colonoscopy performed during today's procedure?: Yes Recommended follow up colonoscopy of at least 10 years?: No If no, follow up colonoscopy recommended in ___ years?: 5 Reason for not recommending >/= 10 yr follow-up interval?: See above
[2024-02-02 09:52] VITALS: BP 104/63; PULSE 74; RESP 16; TEMP 37.1; O2SAT 92
[2024-02-02 10:02] VITALS: BP 103/61; PULSE 71; RESP 16; O2SAT 94
[2024-02-02 10:12] VITALS: BP 102/65; PULSE 71; RESP 18; O2SAT 94
[2024-02-02 10:22] VITALS: BP 119/70; PULSE 69; RESP 18; O2SAT 95
== END 2024-02-02 10:40 | disposition home or self-care (01) ==
PROVIDERS: PCP Internal Medicine; Visit Provider Surgery
PROC: 0DJ08ZZ Inspection of Upper Intestinal Tract, Via Natural or Artificial Opening Endoscopic (ICD-10-PCS; CPT 43235; principal; 2024-02-02 09:30)
DX: K29.60 Other gastritis without bleeding (principal); K57.30 Diverticulosis of large intestine without perforation or abscess without bleeding; K64.8 Other hemorrhoids
CPT/HCPCS: 43239; 45378; 82962; J2704; J7120

== ENCOUNTER 2024-03-11 13:09 | Outpatient (CLI) | payer OTHER, SELFPAY ==
[2024-03-11 13:19] LABS: Basophils # 0.1 K/mm3 (0-0.2); Basophils % 0.6 % (0.1-2.0); Eosinophils # 0.5 K/mm3 (0.0-0.4); Hematocrit 39.2 % (37.0-47.0); Hemoglobin 12.5 g/dL (12.2-16.2); Lymphocytes # 1.9 K/mm3 (0.7-4.5); Mean Corpuscular HGB Conc 31.8 g/dL (31.8-35.4); Mean Corpuscular Hemoglobin 25.4 pg (27.0-31.2); Mean Corpuscular Volume 79.8 fl (81-99); Mean Platelet Volume 8.3 fl (7.4-10.4); Monocytes # 0.4 K/mm3 (0.1-1.0); Neutrophils # 6.6 K/mm3 (1.8-7.8); Neutrophils % 70.3 % (37.0-80.0); Platelet Count 360 K/mm3 (142-424); Red Blood Count 4.91 M/mm3 (4.20-5.40); Red Cell Distribution Width 18.7 % (11.5-17.5); White Blood Count 9.4 K/mm3 (4.8-10.8)
[2024-03-11 13:40] LABS: Chloride 108 mmol/L (98-107); Sodium 139 mmol/L (136-145)
[2024-03-11 13:41] LABS: Potassium 4.2 mmoL/L (3.5-5.1)
[2024-03-11 13:43] LABS: Alanine Aminotransferase 25 U/L (12-78); Albumin Level 4.4 g/dl (3.5-5.0); Albumin/Globulin Ratio 1.6 (1.1-1.8); Alkaline Phosphatase 100 U/L (38-126); Anion Gap 14.2 mEq/L (5-15); Aspartate Amino Transferase 26 U/L (14-36); Bilirubin,Total 0.4 mg/dl (0.2-1.3); Blood Urea Nitrogen 19 mg/dl (7-17); Calcium 9.5 mg/dl (8.4-10.2); Carbon Dioxide 21 mmol/L (22.0-30.0); Estimated Glomerular Filt Rate 73 ml/min (>60); GFR (African American) 88 ML/MIN (>60); Globulin 2.7 g/dL (1.3-3.2); Glucose 148 mg/dl (74-100); Iron 61 ug/dL (37-170); Total Protein,Serum 7.1 g/dl (6.3-8.2)
[2024-03-11 13:53] LABS: Total Iron Binding Capacity 432 ug/dL (265-497)
[2024-03-11 14:02] LABS: 25-OH Vitamin D, Total 83.1 ng/mL (30-100)
[2024-03-11 14:19] LABS: Ferritin 9.11 ng/ml (11.1-264)
[2024-03-11 15:23] LABS: Vitamin B12 601 pg/mL (239-931)
== END 2024-03-11 23:59 | disposition home or self-care (01) ==
LOC: LAB.DROPOF 13:10
PROVIDERS: PCP Nurse Practitioner Family; Visit Provider Nurse Practitioner Family
DX: D64.9 Anemia, unspecified (principal); E11.9 Type 2 diabetes mellitus without complications; Z79.85 Long-term (current) use of injectable non-insulin antidiabetic drugs; M54.12 Radiculopathy, cervical region
CPT/HCPCS: 80053; 82306; 82607; 82728; 83036; 83540; 83550; 85025

== ENCOUNTER 2024-03-22 11:12 | Outpatient (CLI) | payer OTHER, SELFPAY ==
[2024-03-22] MEDS: SODIUM CHLORIDE 0.9% 50ML BAG 50 ML IV (11:30)
[2024-03-22 11:40] VITALS: BP 131/76; PULSE 74; RESP 18; O2SAT 99
[2024-03-22] MEDS: IRON SUCROSE COMPLEX 200 MG in 0.9 % SODIUM CHLORIDE 100 ML 220 MG IV (11:40)
[2024-03-22 12:20] VITALS: BP 138/72; PULSE 69; RESP 18; O2SAT 99
== END 2024-03-22 12:20 | disposition home or self-care (01) ==
LOC: INF 11:12
PROVIDERS: PCP Internal Medicine; Visit Provider Nurse Practitioner Family
DX: D50.9 Iron deficiency anemia, unspecified (principal)
CPT/HCPCS: 96365; J1756

== ENCOUNTER 2024-03-29 10:50 | Outpatient (CLI) | payer OTHER, SELFPAY ==
[2024-03-29] MEDS: IRON SUCROSE COMPLEX 200 MG in 0.9 % SODIUM CHLORIDE 100 ML 220 MG IV (11:15)
[2024-03-29] MEDS: SODIUM CHLORIDE 0.9% 50ML BAG 50 ML IV (11:15)
[2024-03-29 12:10] VITALS: BP 136/72; PULSE 65; RESP 18; O2SAT 96
[2024-03-29 14:31] VITALS: BP 138/73; PULSE 79; RESP 18; TEMP 36.4; O2SAT 97
== END 2024-03-29 12:10 | disposition home or self-care (01) ==
LOC: INF 10:51
PROVIDERS: PCP Internal Medicine; Visit Provider Nurse Practitioner Family
DX: D50.9 Iron deficiency anemia, unspecified (principal)
CPT/HCPCS: 96365; J1756

== ENCOUNTER 2024-04-05 10:47 | Outpatient (CLI) | payer OTHER, SELFPAY ==
[2024-04-05 11:20] VITALS: BP 109/63; PULSE 66; RESP 18; O2SAT 98
[2024-04-05] MEDS: SODIUM CHLORIDE 0.9% 50ML BAG 50 ML IV (11:20)
[2024-04-05] MEDS: IRON SUCROSE COMPLEX 200 MG in 0.9 % SODIUM CHLORIDE 100 ML 220 MG IV (11:20)
[2024-04-05] MEDS: SODIUM CHLORIDE 0.9% 10ML FLUSH SYRINGE 10 ML IV (11:20)
[2024-04-05 11:50] VITALS: BP 128/68; PULSE 62
== END 2024-04-05 11:55 | disposition home or self-care (01) ==
LOC: INF 10:47
PROVIDERS: PCP Internal Medicine; Visit Provider Nurse Practitioner Family
DX: D50.9 Iron deficiency anemia, unspecified (principal)
CPT/HCPCS: 96365; J1756

== ENCOUNTER 2024-04-12 10:42 | Outpatient (CLI) | payer OTHER, SELFPAY ==
[2024-04-12 11:00] VITALS: BP 128/71; PULSE 76; RESP 18; TEMP 36.7; O2SAT 98
[2024-04-12] MEDS: IRON SUCROSE COMPLEX 200 MG in 0.9 % SODIUM CHLORIDE 100 ML 220 MG IV (11:00)
[2024-04-12] MEDS: SODIUM CHLORIDE 0.9% 50ML BAG 50 ML IV (11:00)
[2024-04-12] MEDS: SODIUM CHLORIDE 0.9% 10ML FLUSH SYRINGE 10 ML IV (11:00)
[2024-04-12 11:30] VITALS: BP 116/68; PULSE 79
== END 2024-04-12 23:59 | disposition home or self-care (01) ==
LOC: INF 10:42
PROVIDERS: PCP Internal Medicine; Visit Provider Nurse Practitioner Family
DX: D50.9 Iron deficiency anemia, unspecified (principal)
CPT/HCPCS: 96365; J1756

== ENCOUNTER 2024-04-19 10:44 | Outpatient (CLI) | payer OTHER, SELFPAY ==
[2024-04-19] MEDS: SODIUM CHLORIDE 0.9% 10ML FLUSH SYRINGE 10 ML IV (11:05)
[2024-04-19] MEDS: SODIUM CHLORIDE 0.9% 50ML BAG 50 ML IV (11:10)
[2024-04-19] MEDS: IRON SUCROSE COMPLEX 200 MG in 0.9 % SODIUM CHLORIDE 100 ML 220 MG IV (11:10)
[2024-04-19 11:11] VITALS: BP 113/66; PULSE 70; RESP 16; TEMP 36.6; O2SAT 98; BMI 33.5
[2024-04-19 11:46] VITALS: BP 112/66; PULSE 71; RESP 16; O2SAT 99
== END 2024-04-19 11:48 | disposition home or self-care (01) ==
LOC: INF 10:44
PROVIDERS: PCP Internal Medicine; Visit Provider Nurse Practitioner Family
DX: D50.9 Iron deficiency anemia, unspecified (principal)
CPT/HCPCS: 96365; J1756

== ENCOUNTER 2024-06-04 10:31 | Outpatient (CLI) | payer OTHER, SELFPAY ==
[2024-06-04 10:55] LABS: Basophils # 0.1 K/mm3 (0-0.2); Basophils % 0.7 % (0.1-2.0); Eosinophils # 0.4 K/mm3 (0.0-0.4); Eosinophils % 4.4 % (0.1-12.0); Hematocrit 45.8 % (37.0-47.0); Hemoglobin 15.1 g/dL (12.2-16.2); Lymphocytes # 1.6 K/mm3 (0.7-4.5); Lymphocytes % 19.2 % (10-50); Mean Corpuscular HGB Conc 32.9 g/dL (31.8-35.4); Mean Corpuscular Volume 91.1 fl (81-99); Mean Platelet Volume 8.1 fl (7.4-10.4); Monocytes # 0.5 K/mm3 (0.1-1.0); Monocytes % 5.6 % (1.7-9.3); Neutrophils # 5.9 K/mm3 (1.8-7.8); Neutrophils % 70.1 % (37.0-80.0); Platelet Count 309 K/mm3 (142-424); Red Blood Count 5.03 M/mm3 (4.20-5.40); Red Cell Distribution Width 17.4 % (11.5-17.5); White Blood Count 8.5 K/mm3 (4.8-10.8)
[2024-06-04 11:08] LABS: Alanine Aminotransferase 28 U/L (12-78); Albumin Level 4.3 g/dl (3.5-5.0); Albumin/Globulin Ratio 1.7 (1.1-1.8); Alkaline Phosphatase 69 U/L (38-126); Anion Gap 8.9 mEq/L (5-15); Aspartate Amino Transferase 28 U/L (14-36); Bilirubin,Total 0.7 mg/dl (0.2-1.3); Blood Urea Nitrogen 17 mg/dl (7-17); Calcium 9.6 mg/dl (8.4-10.2); Carbon Dioxide 26 mmol/L (22.0-30.0); Chloride 107 mmol/L (98-107); Estimated Glomerular Filt Rate 102 ml/min (>60); GFR (African American) 123 ML/MIN (>60); Globulin 2.5 g/dL (1.3-3.2); Glucose 117 mg/dl (74-100); Potassium 3.9 mmoL/L (3.5-5.1); Sodium 138 mmol/L (136-145); Total Protein,Serum 6.8 g/dl (6.3-8.2)
[2024-06-04 11:42] LABS: Hemoglobin A1C 6.2 % (4.0-6.0)
[2024-06-04 12:20] LABS: Iron 83 ug/dL (37-170)
[2024-06-04 12:31] LABS: Total Iron Binding Capacity 317 ug/dL (265-497)
[2024-06-04 12:56] LABS: Ferritin 77.6 ng/ml (11.1-264)
== END 2024-06-04 23:59 | disposition home or self-care (01) ==
LOC: LAB 10:33
PROVIDERS: PCP Internal Medicine; Visit Provider Internal Medicine
DX: D50.9 Iron deficiency anemia, unspecified (principal); E11.9 Type 2 diabetes mellitus without complications
CPT/HCPCS: 36415; 80053; 82728; 83036; 83540; 83550; 85025

== ENCOUNTER 2024-07-27 01:44 | Observation (INO) | payer OTHER, SELFPAY ==
[2024-07-27] VITALS (16 sets, daily range): BP systolic 92–149; BP diastolic 50–74; PULSE 80–101; RESP 16–18; TEMP 36.5–38.2; O2SAT 94–99; BMI 32.2
--- NOTE | 2024-07-27 02:20 | CT_ITS ---
PROCEDURE INFORMATION: Exam: CT Abdomen And Pelvis With Contrast Exam date and time: 07/27/2024 3:22 AM Age: 63 years old Clinical indication: Abdominal pain; Flank; Left; Additional info: Abd pain, low L flank pain TECHNIQUE: Imaging protocol: Computed tomography of the abdomen and pelvis with contrast. Radiation optimization: All CT scans at this facility use at least one of these dose optimization techniques: automated exposure control; mA and/or kV adjustment per patient size (includes targeted exams where dose is matched to clinical indication); or iterative reconstruction. Contrast material: ISOVUE; Contrast volume: 75 ml; Contrast route: IV; COMPARISON: CT ANGIO ABDOMEN PELVIS 11/23/2023 7:47 AM FINDINGS: Lungs: Lung bases are clear. Liver: Normal liver. Gallbladder and biliary ducts: Status post cholecystectomy. No biliary dilatation. Pancreas: Normal pancreas. No ductal dilation. Spleen: Normal spleen. No splenomegaly. Adrenal glands: Normal adrenal glands. Kidneys and ureters: Mild left pelvicaliectasis, slightly increased from 11/23/2023, with no hydroureter or obstructing calculus. New urothelial enhancement in the left renal pelvis and proximal ureter, with new mild left perinephric stranding. No definite renal or perinephric abscess. A 1.5 cm nonobstructive calculus in the lower pole of the left kidney. Unchanged irregular contour of the left kidney, suggesting probable focal cortical scarring. Normal right kidney. Stomach and bowel: Colonic diverticulosis without definite evidence of diverticulitis. No bowel wall thickening. No bowel obstruction. No definite gastric abnormality. Appendix: Normal appendix. Intraperitoneal space: No free fluid or free air. Vasculature: No abdominal aortic aneurysm or dissection. Portal vein and mesenteric vessels appear grossly patent. Lymph nodes: Mild left periaortic adenopathy, with a chemical sales representative node measuring 1 cm in short axis diameter, increased in comparison to 11/23/2023. Urinary bladder: Normal urinary bladder. Reproductive: Status post hysterectomy. Bones/joints: No acute osseous abnormality. Soft tissues: Unremarkable. IMPRESSION: 1. New urothelial enhancement in the left renal pelvis and proximal ureter, with new mild left perinephric stranding. Raises concern for pyelitis, possibly pyelonephritis. Clinical correlation recommended. 2. Mild left pelvicaliectasis, slightly increased from 11/23/2023, with no hydroureter or obstructing calculus. The fullness could be secondary to the suspected pyelitis/pyelonephritis. 3. No definite renal or perinephric abscess. 4. A 1.5 cm nonobstructive calculus in the lower pole of the left kidney. 5. Unchanged irregular contour of the left kidney, suggesting probable focal cortical scarring. 6. Mild left periaortic adenopathy, with a chemical sales representative node measuring 1 cm in short axis diameter, increased in comparison to 11/23/2023. 7. Status post cholecystectomy. 8. Colonic diverticulosis without definite evidence of diverticulitis. 9. Status post hysterectomy.
--- NOTE | 2024-07-27 02:20 | XR_ITS ---
PROCEDURE INFORMATION: Exam: XR Chest Exam date and time: 07/27/2024 2:48 AM Age: 63 years old Clinical indication: Fever TECHNIQUE: Imaging protocol: Radiologic exam of the chest. Views: 1 view. COMPARISON: CR XR CHEST PORTABLE 11/20/2023 4:10 PM FINDINGS: Limitations: Evaluation limited by patient body habitus. Lungs: No consolidation, mass, or pulmonary edema. Pleural spaces: No pneumothorax or pleural effusion. Heart/Mediastinum: Cardiomediastinal silhouette is within normal limits. Bones/joints: No acute osseous abnormality. IMPRESSION: No acute findings.
[2024-07-27] MEDS: LACTATED RINGERS 1000ML 1,000 ML 999 ML IV ×2 (02:29→04:35)
[2024-07-27] MEDS: ACETAMINOPHEN 500MG TAB 1000 MG PO (02:29)
[2024-07-27 02:33] LABS: Coronavirus 19, PCR Not Detected (NotDetected); Influenza A, PCR Not Detected (NotDetected); Influenza B, PCR Not Detected (NotDetected)
[2024-07-27 02:34] LABS: Basophils % 0.3 % (0.1-2.0); Eosinophils # 0.2 K/mm3 (0.0-0.4); Eosinophils % 1.2 % (0.1-12.0); Hematocrit 43.8 % (37.0-47.0); Hemoglobin 14.9 g/dL (12.2-16.2); Lymphocytes # 0.6 K/mm3 (0.7-4.5); Lymphocytes % 4.4 % (10-50); Mean Corpuscular HGB Conc 33.9 g/dL (31.8-35.4); Mean Corpuscular Hemoglobin 31.5 pg (27.0-31.2); Mean Corpuscular Volume 92.8 fl (81-99); Mean Platelet Volume 8.1 fl (7.4-10.4); Monocytes # 0.2 K/mm3 (0.1-1.0); Monocytes % 1.7 % (1.7-9.3); Neutrophils # 13.1 K/mm3 (1.8-7.8); Neutrophils % 92.5 % (37.0-80.0); Platelet Count 349 K/mm3 (142-424); Red Blood Count 4.72 M/mm3 (4.20-5.40); White Blood Count 14.2 K/mm3 (4.8-10.8)
--- NOTE | 2024-07-27 02:34 | ECG_ITS ---
APPROVED REPORT Exam: Resting ECG HR:97 bpm ECG Measurements Heart Rate 97 AXES SD 165 P 67 QRSd 83 QRS 50 QT 344 T 65 QTc 399 Conclusion SINUS RHYTHM NONSPECIFIC ST & T-WAVE ABNORMALITY BORDERLINE ECG no STEMI Electronically signed by : JOSEPH HINDS, 07/27/2024 06:06:46
[2024-07-27 02:36] LABS: Albumin Level 4.5 g/dl (3.5-5.0); Chloride 106 mmol/L (98-107)
[2024-07-27 02:37] LABS: Sodium 139 mmol/L (136-145)
[2024-07-27 02:38] LABS: Acetone, Serum (Rapid) None Detected (None Detect)
[2024-07-27 02:39] LABS: Alanine Aminotransferase 38 U/L (12-78); Aspartate Amino Transferase 57 U/L (14-36); Blood Urea Nitrogen 18 mg/dl (7-17); Carbon Dioxide 24 mmol/L (22.0-30.0); Creatinine Clearance Estimated 80 mL/min (50-200); Estimated Glomerular Filt Rate 73 ml/min (>60); GFR (African American) 88 ML/MIN (>60); MANUAL DIFFERENTIAL MANUAL DIFFERENTIAL (MANUAL DIFF)
[2024-07-27 02:40] LABS: Albumin/Globulin Ratio 1.3 (1.1-1.8); Alkaline Phosphatase 77 U/L (38-126); Bilirubin,Total 1.2 mg/dl (0.2-1.3); Calcium 9.2 mg/dl (8.4-10.2); Globulin 3.6 g/dL (1.3-3.2); Glucose 127 mg/dl (74-100); Total Protein,Serum 8.1 g/dl (6.3-8.2)
[2024-07-27 02:42] LABS: INR 0.97 (0.9-1.1); Prothrombin Time 10.9 seconds (10.1-12.5)
[2024-07-27 02:50] LABS: Lymphocytes % 11 % (10-50); Monocytes % 1 % (2-9); Neutrophils % 88 % (42-76); Total Cells Counted 100
[2024-07-27 02:51] LABS: Platelet Estimate Normal; RBC Morphology Normal
[2024-07-27 02:53] LABS: Troponin I < 0.01 ng/ml (0.00-0.034)
[2024-07-27] MEDS: SODIUM CHLORIDE 0.9% 10ML SYR (RAD ONLY) 10 ML IV (03:34)
[2024-07-27] MEDS: IOPAMIDOL-370 (76%);100ML BOTTLE 75 ML IV (03:34)
[2024-07-27 04:03] LABS: Appearance,Urine CLEAR (Clear); Bilirubin,Urine Negative (Negative); Blood, Urine 2+ (Negative); Color,Urine YELLOW (Yellow); Glucose,Urine (UA) 2+ (Negative); Ketones,Urine 1+ (Negative); Leukocyte Esterase,Urine 1+ (Negative); Microscopic, Urine URINE MICROSCOPIC (MICROSCOPIC); Nitrate,Urine POSITIVE (Negative); Protein,Urine 2+ (Negative); Specific Gravity, Urine 1.015 (1.005-1.030); Urobilinogen,Urine 0.2 EU/dl (0.2)
[2024-07-27 04:11] LABS: Bacteria,Urine 3+ /lpf; RBC,Urine 20-50 #/hpf (0-3); Squamous Epithelial Cell,Urine Occasional #/hpf (0-5)
[2024-07-27] MEDS: CEFTRIAXONE 1 GM 1 GM in 0.9 % SODIUM CHLORIDE 50 ML IV (04:28)
--- NOTE | 2024-07-27 04:51 | ED_ITS ---
Discharge Plan Disposition Patient Disposition: Admitted Condition: Fair Clinical Impressions Clinical Impression: UTI (urinary tract infection), Pyelonephritis, Fever, Sepsis Discharge ED Provider: Carlos West Adult HPI General Chief complaint: Abdominal Pain Stated complaint: Abd Pain Time Seen by Provider: 07/27/24 02:12 Mode of Arrival: EMS Source of Information: Patient and EMS Limitations: No Limitations Description of Symptoms (Recalled from ER Triage Doc. by RN): Patient reports abdominal pain, low back pain and shivering. Has fever of 102.5 History of Present Illness HPI narrative: 63-year-old female with history of diabetes, recent GI bleed presents to the ER with complaints of abdominal pain, low back pain, shivering. EMS reports family was concerned patient was possibly hypoglycemic, patient reports she believes the battery in her glucometer was low. Patient reports her symptoms started a few hours ago and have worsened. She states she just could not get warm. On arrival to the ER patient was febrile to 102.5. Twelve-lead that EMS showed me was not concerning for ischemia, patient did not receive any medications in route from EMS per their report. Daughter presented to bedside shortly after patient's arrival and reported patient is dramatic but that she also has very poorly controlled diabetes, often is noncompliant. Patient denies any vomiting but does report nausea, she has not had any diarrhea or dysuria, she reports no chest pain or shortness of breath, no numbness, tingling, or weakness. No cough or congestion. Related Data Home Medications ?Medication ?Instructions ?Recorded ?Confirmed cinnamon bark 500 mg capsule 2,000 mg PO DAILY 12/14/23 06/11/24 (Cinnamon) loratadine 10 mg tablet (Claritin) 10 mg PO DAILY 12/14/23 06/11/24 multivitamin (Daily Multi-Vitamin 1 tab PO DAILY 12/14/23 06/11/24 tablet) omega 6-cus-hbn-fish oil 1,200 mg 2 cap PO DAILY 12/14/23 06/11/24 (144 mg-216 mg) capsule (Fish Oil) vitamin B complex-folic acid 0.4 2 tab PO DAILY 12/14/23 06/11/24 mg tablet (Super B Maxi Complex) zinc acetate 50 mg (zinc) capsule 50 mg PO DAILY 12/14/23 06/11/24 (Galzin) ascorbic acid (vitamin C) 500 mg 1,000 mg PO DAILY 01/08/24 06/11/24 capsule Previous Rx's ?Medication ?Instructions ?Recorded blood sugar diagnostic (OneTouch #100 strips 02/24/23 Ultra Test strips) rimegepant 75 mg disintegrating 75 mg PO ONCE PRN migraine 11/07/23 tablet (Nurtec ODT) headache #16 tabs iron sucrose 200 mg iron/10 mL 200 mg (10 mL) IV WEEKLY 5 doses 03/13/24 intravenous solution (Venofer) lisinopril 10 mg tablet See Rx Instructions .Route 03/25/24 .COMPLEX #90 tabs dapagliflozin propanediol 5 mg See Rx Instructions .Route 04/30/24 tablet .COMPLEX #120 tabs varicella-zoster glycoE [id number] 50 mcg IM ONCE #1 ea 06/11/24 adj(PF) 50 mcg/0.5 mL IM susp, kit (Shingrix (PF)) dulaglutide 1.5 mg/0.5 mL See Rx Instructions .Route 06/24/24 subcutaneous pen injector .COMPLEX #2 mL (Trulicity) famotidine 40 mg tablet See Rx Instructions .Route 06/24/24 .COMPLEX #90 tabs rosuvastatin 10 mg tablet See Rx Instructions .Route 06/24/24 .COMPLEX #90 tabs ergocalciferol (vitamin D2) 1,250 See Rx Instructions .Route 07/02/24 mcg (50,000 unit) capsule .COMPLEX #12 caps Allergies Allergy/AdvReac Type Severity Reaction Status Date / Time No Known Allergies Allergy Verified 06/11/24 09:[address] [facility] Disclaimer: The information contained in this section may have been updated after the patient was seen, as this information can be updated by other users. Medical History Depression Diabetes Gastritis Hematoma of parietal scalp Cholecystectomy planned Surgical History History of colonoscopy History of cholecystectomy History of esophagogastroduodenoscopy (EGD) H/O sinus surgery History of carpal tunnel surgery H/O: hysterectomy Family History Other Family history of cancer Social History Smoking Status: Never smoker alcohol intake: never substance use type: denies use current occupational status: employed and retired household members: spouse, family and children housing: house Other Medical History Have you received the Flu Vaccine for this season: No Have you received the Pneumonia Vaccine: No ROS Obtained: Yes Systems reviewed as appropriate & no additional complaints except as documented ROS per HPI Physical Exam General General appearance: alert Comment: Ill-appearing and shivering but not in extremis Head Head exam: atraumatic and normocephalic Eye Eye exam: Present PERRL and EOMI ENT ENT exam: Present mucous membranes moist Neck Neck exam: Present normal inspection and full ROM Chest Chest inspection: Present symmetric chest wall rise Respiratory Respiratory exam: Present normal lung sounds bilaterally; Absent respiratory distress, wheezes or stridor Cardiovascular Cardiovascular exam: Present regular rate and normal rhythm Abdominal Exam Abdominal exam: Present soft and tenderness (Mild epigastric and suprapubic); Absent distention, guarding or rebound Extremities Exam Extremities exam: Present full ROM Back Exam Back exam: Absent CVA tenderness (R) or CVA tenderness (L) Neurological Exam Neurological exam: Present alert and oriented X3; Absent motor sensory deficit Psychiatric Psychiatric exam: Present normal affect and normal mood Skin Skin exam: Present warm and dry Medical Decision Making Medical Records Medical records reviewed: Yes I reviewed the patient's medical records. Screening: Per USPSTF and CDC recommendations, given the prevalence of disease in our region, it is our hospital?s policy to screen for HIV and viral Hepatitis for all patients aged 18 and over and those with ongoing risk factors. MR Comment: Review of hospitalist notes demonstrates that patient was admitted in October 2023 with melena and syncope. Patient had GI bleed. Arvind Inquiry Pt receiving controlled substance: No Vital Signs: 07/27/24 01:45 07/27/24 02:00 07/27/24 02:30 Temperature 97.9 F Temperature Source Oral Pulse Rate 97 H 98 H Pulse Rate [Right Radial] 101 H Respiratory Rate 18 Blood Pressure 132/70 117/62 Blood Pressure [Right Arm] 149/74 H Blood Pressure Mean [Right Arm] 99 Blood Pressure Source Blood Pressure Source [Right Arm] Automatic Cuff Blood Pressure Position Blood Pressure Position [Right Arm] Supine 02 Sat by Pulse Oximetry 99 96 96 Oxygen Delivery Method Room Air 11/30/24 03:30 07/27/24 04:25 07/27/24 04:54 Temperature 99.3 F 99.3 F Temperature Source Oral Pulse Rate 90 86 82 Pulse Rate [Right Radial] Respiratory Rate 16 Blood Pressure 92/67 L 112/59 L 104/62 L Blood Pressure [Right Arm] Blood Pressure Mean [Right Arm] Blood Pressure Source Automatic Cuff Blood Pressure Source [Right Arm] Blood Pressure Position Supine Blood Pressure Position [Right Arm] 02 Sat by Pulse Oximetry 95 96 Oxygen Delivery Method Room Air Lab Data Lab Results 07/27/24 02:22: WBC 14.2 H, RBC 4.72, Hgb 14.9, Hct 43.8, MCV 92.8, MCH 31.5 H, MCHC 33.9, RDW 14.0, Plt Count 349, MPV 8.1, Neut % (Auto) 92.5 H, Lymph % (Auto) 4.4 L, [place] % (Auto) 1.7, Eos % (Auto) 1.2, Baso % (Auto) 0.3, Neut # (Auto) 13.1 H, Lymph # (Auto) 0.6 L, [place] # (Auto) 0.2, Eos # (Auto) 0.2, Baso # (Auto) 0.0, Total Counted 100, Neutrophils % (Manual) 88 H, Lymphocytes % (Manual) 11, Monocytes % (Manual) 1 L, Platelet Estimate Normal, RBC Morphology Normal, PT 10.9, INR 0.97, Sodium 139, Potassium 5.0, Chloride 106, Carbon Dioxide 24, Anion Gap 14.0, BUN 18 H, Creatinine 0.80, Estimated Creat Clear 80, Estimated GFR 73, Est GFR ( Amer) 88, Glucose 127 H, Calcium 9.2, Total Bilirubin 1.2, AST 57 H, ALT 38, Alkaline Phosphatase 77, Troponin I < 0.01, Total Protein 8.1, Albumin 4.5, Globulin 3.6 H, Albumin/Globulin Ratio 1.3, Acetone Level None detected, SARS-CoV-2 (PCR) Not detected, Influenza A Untype (PCR) Not detected, Influenza Type B (PCR) Not detected 07/27/24 03:58: Urine Color Yellow, Urine Appearance Clear, Urine pH 6.0, Ur Specific [place] 1.015, Urine Protein 2+ A, Urine Glucose (UA) 2+, Urine Ketones 1+, Urine Blood 2+ A, Urine Nitrate Positive A, Urine Bilirubin Negative, Urine Urobilinogen 0.2, Ur Leukocyte Esterase 1+ A, Urine RBC 20-50, Urine WBC 10-20, Ur Squamous Epith Cells Occasional, Urine Bacteria 3+ 07/27/24 02:22 07/27/24 02:22 Orders (Tests/Meds): ED MEDICATIONS Generic Name Dose Route Start Last Admin Trade Name Dipika PRN Reason Stop Dose Admin Acetaminophen 650 mg 07/27/24 04:49 Acetaminophen 325mg Tab PO 08/26/24 04:48 Q4HP PRN Fever or Mild Pain (1-3) Enoxaparin Sodium 40 mg 07/27/24 09:00 Enoxaparin 40mg/0.4ml Syringe SUBCUT 08/26/24 08:59 DAILY CHARLA Ceftriaxone Sodium 1 gm/ 50 mls @ 100 mls/hr 07/27/24 04:15 07/27/24 04:28 Sodium Chloride IV 08/06/24 04:14 100 mls/hr Q24H CHARLA Administration Lactated Ringer's 1,000 mls @ 999 mls/hr 07/27/24 04:35 Lactated Ringer's 1000 Ml Bag IV 07/27/24 05:35 .Q1H1M ONE Ondansetron HCl 4 mg 07/27/24 04:49 Ondansetron 4mg/2ml Vial IV 08/26/24 04:48 Q8HP PRN Nausea Sodium Chloride 10 ml 07/27/24 03:33 07/27/24 03:34 Sodium Chloride 0.9% 10ml Syr (Rad Only) IV 08/26/24 03:32 10 ml NEEDED PRN Administration Maintain IV Site Discontinued Medications Generic Name Dose Route Start Last Admin Trade Name Dipika PRN Reason Stop Dose Admin Acetaminophen 1,000 mg 07/27/24 02:20 07/27/24 02:29 Acetaminophen 500mg Tab PO 07/27/24 02:21 1,000 mg ONCE ONE Administration Lactated Ringer's 1,000 mls @ 999 mls/hr 07/27/24 02:20 07/27/24 02:29 Lactated Ringer's 1000 Ml Bag IV 07/27/24 03:20 999 mls/hr .Q1H1M ONE Administration Iopamidol 75 ml 07/27/24 03:33 07/27/24 03:34 Iopamidol-370 (76%);100ml Bottle IV 07/27/24 03:34 75 ml ONCE ONE Administration ORDERS Category Date Time Status CT abdomen pelvis w con Stat Cat Scan 07/27/24 02:20 Completed CXR --portable [XR chest portable] Stat Exams 07/27/24 02:20 Completed Acetone, Serum (Rapid) Stat Lab 07/27/24 02:22 Completed CBC w/Auto Diff [Complete Blood Count Auto Diff] Stat Lab 07/27/24 02:22 Completed CMP [Comprehensive Metabolic Panel] Stat Lab 07/27/24 02:22 Completed Complete Blood Count Auto Diff AMLAB Lab 07/27/24 06:00 Ordered Complete Blood Count Auto Diff AMLAB Lab 07/28/24 06:00 Ordered Complete Blood Count Auto Diff AMLAB Lab 07/29/24 06:00 Ordered Complete Blood Count Auto Diff AMLAB Lab 07/30/24 06:00 Ordered Complete Blood Count Auto Diff AMLAB Lab 07/31/24 06:00 Ordered Comprehensive Metabolic Panel AMLAB Lab 07/27/24 06:00 Ordered Comprehensive Metabolic Panel AMLAB Lab 07/28/24 06:00 Ordered Comprehensive Metabolic Panel AMLAB Lab 07/29/24 06:00 Ordered Comprehensive Metabolic Panel AMLAB Lab 07/30/24 06:00 Ordered Comprehensive Metabolic Panel AMLAB Lab 07/31/24 06:00 Ordered Magnesium AMLAB Lab 07/27/24 06:00 Ordered Magnesium AMLAB Lab 07/28/24 06:00 Ordered Magnesium AMLAB Lab 07/29/24 06:00 Ordered Magnesium AMLAB Lab 07/30/24 06:00 Ordered Magnesium AMLAB Lab 07/31/24 06:00 Ordered PT INR [Prothrombin Time INR] Stat Lab 07/27/24 02:22 Completed Rapid PCR Covid and Flu A/B Stat Lab 07/27/24 02:22 Completed Trop I [Troponin I] Stat Lab 07/27/24 02:22 Completed Troponin I Q3H Lab 07/27/24 05:30 Ordered Troponin I Q3H Lab 07/27/24 08:30 Ordered Urinalysis and Microscopic Stat Lab 07/27/24 03:58 Completed Urine Culture Stat Micro 07/27/24 03:58 Received Medical Decision Narrative: In summary, this 63-year-old female with comorbidities as outlined in HPI presents to the emergency department today with abdominal pain, back pain, shivering. On initial evaluation patient is hemodynamically stable, febrile to 102.5 Fahrenheit, GCS 15, physical exam notable for epigastric and suprapubic tenderness to palpation, no oswald CVA tenderness appreciated though patient complains of flank pain. Differential diagnosis includes but is not limited to urinary tract infection, pyelonephritis, I considered sepsis but patient does not meet criteria at this time, also considered viral infection, pneumonia, atypical presentation of ACS though suspicion is lower with fever. Also considered possibility of enteritis/colitis. Based on these concerns, I ordered serum labs, cardiac workup, CT imaging. ECG personally turbid demonstrates normal sinus rhythm, rate 97, normal axis, normal WI and QTc, no STEMI. Patient received IV fluids, Tylenol for treatment. Labs personally reviewed demonstrate leukocytosis with WBC 14.2, no anemia, platelets normal, PT/INR normal, CMP with mild prerenal azotemia, patient is already receiving IV fluids, I had considered DKA though I had extremely low suspicion for this, acetone negative, initial troponin undetectably low less than 0.01 reassuring against cardiac etiology, UA obviously positive for findings of infection with WBC and nitrate positive, patient received Rocephin for treatment. Chest x-ray personally interpreted does not demonstrate acute intrathoracic abnormality such as lobar infiltrate. See radiology read for final interpretation. COVID/flu negative. CT abdomen pelvis personally interpreted does not demonstrate kidney stone, no bowel obstruction, no findings of enteritis, see radiology read for final interpretation which does discuss findings consistent with pyelonephritis as well as many other incidental findings. Discussed with patient and family. While in the ER despite receiving IV fluids and antibiotics, patient's blood pressure became progressively hypotensive, she was not having chest pain or difficulty breathing, her fever did improve. She received additional IV fluids which improved her blood pressure, however with her hypotension, fever, source of infection, and leukocytosis, she does meet criteria for sepsis. Since source has been identified, I will not be giving additional antibiotics, however I do believe she requires admission for continued monitoring and management. Patient and daughter at bedside agreeable with this plan, I discussed this case with the hospitalist who accept the patient for admission. Critical Care Critical Care Time Critical Care Time: Yes Attestation: On 07/27/24, the high probability of a clinically significant, sudden or life threatening deterioration of the following system(s) required my full and direct attention, intervention and personal management. The time I documented below is in addition to time spent performing reported procedures but includes the following listed in this critical care notation. Total Time Total Critical Care Time: 35
--- NOTE | 2024-07-27 04:52 | EXP.HP ---
History of Present Illness *Admission Date: 07/27/24 *Reason for visit:: Pyelonephritis *History of present illness: Sadie Juarez is a 63-year-old female with medical history of type 2 diabetes, hypertension who presents after fever up to 102 Fahrenheit at home and rigors. Per daughter, she was cyanotic in the lips and fingers at home and only improved after she got to the ED and received fluids. Patient states has been having some abdominal pain, including left lower back pain. No urinary symptoms. No chest pain, shortness of breath, cough, constipation/diarrhea. Workup in the ED significant for WBC 14.2 and UA highly suggestive of UTI. CT abdomen/pelvis also suggestive of left pyelitis/pyelonephritis. Patient's pressures continue to be soft after 2 L bolus, systolics in the 90s. Case discussed with ED provider and decision was made to admit patient for sepsis secondary to pyelonephritis. [facility] Disclaimer: The information contained in this section may have been updated after the patient was seen, as this information can be updated by other users. Medical History Depression Diabetes Gastritis Hematoma of parietal scalp Cholecystectomy planned Surgical History History of colonoscopy History of cholecystectomy History of esophagogastroduodenoscopy (EGD) H/O sinus surgery History of carpal tunnel surgery H/O: hysterectomy Family History (Updated 07/27/24 @ 05:37 by Katty Holloway RN) Other Family history of cancer Family history of diabetes mellitus type II Social History (Updated 07/27/24 @ 05:38 by Katty Holloway RN) Smoking Status: Never smoker alcohol intake: never substance use type: denies use current occupational status: employed and retired Travel in the last 8 weeks: None household members: spouse, family and children housing: house Other Medical History Have you received the Flu Vaccine for this season: No Have you received the Pneumonia Vaccine: No Meds Home Medications and Allergies Home Medications ?Medication ?Instructions ?Recorded ?Confirmed ?Type blood sugar diagnostic (OneTouch #100 strips 02/24/23 07/27/24 Rx Ultra Test strips) rimegepant 75 mg disintegrating 75 mg PO ONCE PRN migraine 11/07/23 07/27/24 Rx tablet (Nurtec ODT) headache #16 tabs loratadine 10 mg tablet (Claritin) 10 mg PO DAILY 12/14/23 07/27/24 History multivitamin (Daily Multi-Vitamin 1 tab PO DAILY 12/14/23 07/27/24 History tablet) omega 5-uxy-guc-fish oil 1,200 mg 2 cap PO DAILY 12/14/23 07/27/24 History (144 mg-216 mg) capsule (Fish Oil) vitamin B complex-folic acid 0.4 2 tab PO DAILY 12/14/23 07/27/24 History mg tablet (Super B Maxi Complex) zinc acetate 50 mg (zinc) capsule 50 mg PO DAILY 12/14/23 07/27/24 History (Galzin) ascorbic acid (vitamin C) 500 mg 1,000 mg PO DAILY 01/08/24 07/27/24 History capsule lisinopril 10 mg tablet See Rx Instructions .Route 03/25/24 07/27/24 Rx .COMPLEX #90 tabs famotidine 40 mg tablet See Rx Instructions .Route 06/24/24 07/27/24 Rx .COMPLEX #90 tabs rosuvastatin 10 mg tablet See Rx Instructions .Route 06/24/24 07/27/24 Rx .COMPLEX #90 tabs ergocalciferol (vitamin D2) 1,250 See Rx Instructions .Route 07/02/24 07/27/24 Rx mcg (50,000 unit) capsule .COMPLEX #12 caps dapagliflozin propanediol 5 mg 5 mg PO DAILY 07/27/24 07/27/24 History tablet (Farxiga) dulaglutide 1.5 mg/0.5 mL 1.5 mg SQ WEEKLY 07/27/24 07/27/24 History subcutaneous [facility]or ([facility] New Prescriptions to Start Prescriptions: Allergies Allergy/AdvReac Type Severity Reaction Status Date / Time No Known Allergies Allergy Verified 06/11/24 09:46 Exam Data for Last 24 hours Vital signs and Labs for Last 24 Hours: Temp Pulse Resp BP Pulse Ox O2 Del Method 99.3 F 86 18 112/59 L 96 Room Air 07/27/24 03:30 07/27/24 04:25 07/27/24 01:45 07/27/24 04:25 07/27/24 04:25 07/27/24 01:45 Laboratory Results - last 24 hr 07/27/24 02:22: WBC 14.2 H, RBC 4.72, Hgb 14.9, Hct 43.8, MCV 92.8, MCH 31.5 H, MCHC 33.9, RDW 14.0, Plt Count 349, MPV 8.1, Neut % (Auto) 92.5 H, Lymph % (Auto) 4.4 L, [place] % (Auto) 1.7, Eos % (Auto) 1.2, Baso % (Auto) 0.3, Neut # (Auto) 13.1 H, Lymph # (Auto) 0.6 L, [place] # (Auto) 0.2, Eos # (Auto) 0.2, Baso # (Auto) 0.0, Total Counted 100, Neutrophils % (Manual) 88 H, Lymphocytes % (Manual) 11, Monocytes % (Manual) 1 L, Platelet Estimate Normal, RBC Morphology Normal, PT 10.9, INR 0.97, Sodium 139, Potassium 5.0, Chloride 106, Carbon Dioxide 24, Anion Gap 14.0, BUN 18 H, Creatinine 0.80, Estimated Creat Clear 80, Estimated GFR 73, Est GFR ( Amer) 88, Glucose 127 H, Calcium 9.2, Total Bilirubin 1.2, AST 57 H, ALT 38, Alkaline Phosphatase 77, Troponin I < 0.01, Total Protein 8.1, Albumin 4.5, Globulin 3.6 H, Albumin/Globulin Ratio 1.3, Acetone Level None detected, SARS-CoV-2 (PCR) Not detected, Influenza A Untype (PCR) Not detected, Influenza Type B (PCR) Not detected 07/27/24 03:58: Urine Color Yellow, Urine Appearance Clear, Urine pH 6.0, Ur Specific [place] 1.015, Urine Protein 2+ A, Urine Glucose (UA) 2+, Urine Ketones 1+, Urine Blood 2+ A, Urine Nitrate Positive A, Urine Bilirubin Negative, Urine Urobilinogen 0.2, Ur Leukocyte Esterase 1+ A, Urine RBC 20-50, Urine WBC 10-20, Ur Squamous Epith Cells Occasional, Urine Bacteria 3+ I & O for Last 24 hours: Intake & Output 07/24/24 07/25/24 07/26/24 07/27/24 23:59 23:59 23:59 23:59 Weight 85.275 kg Constitutional Constitutional: no acute distress *Routine HEENT Exam Head: Present normocephalic Eye: Present EOMI and PERRL ENT: Present mucous membranes moist *Routine Neck Exam Neck: Present supple; Absent lymphadenopathy *Routine Respiratory Exam Respiratory: Present CTA bilaterally *Routine Cardiovascular Exam Cardiovascular: Present RRR *Routine Abdominal Exam Abdominal: Present soft, normoactive bowel sounds and tenderness Comments: Left CVA tenderness. Suprapubic tenderness. *Routine Rectal Exam Rectal:: deferred *Routine Genitalia Exam Genitalia:: deferred *Routine Extremities Exam Extremities: Absent cyanosis, clubbing or edema *Routine Skin Exam Skin: Present warm; Absent rash *Routine Neurological Exam Neurological: Present alert and oriented X3 Assessment and Plan *Assessment and plan (1) Pyelonephritis: Status: Acute Category: Medical Code(s): N12 - Tubulo-interstitial nephritis, not specified as acute or chronic (2) Fever: Status: Acute Category: Medical Code(s): R50.9 - Fever, unspecified (3) Sepsis: Status: Acute Category: Medical Code(s): A41.9 - Sepsis, unspecified organism (4) UTI (urinary tract infection): Status: Acute Category: Medical Code(s): N39.0 - Urinary tract infection, site not specified (5) Septic shock: Status: Acute Category: Medical Code(s): A41.9 - Sepsis, unspecified organism; R65.21 - Severe sepsis with septic shock Plan Sadie Juarez is a 63-year-old female with medical history of type 2 diabetes, hypertension who presents after fever up to 102 Fahrenheit at home and rigors. Per daughter, she was cyanotic in the lips and fingers at home and only improved after she got to the ED and received fluids. Patient states has been having some abdominal pain, including left lower back pain. No urinary symptoms. No chest pain, shortness of breath, cough, constipation/diarrhea. Workup in the ED significant for WBC 14.2 and UA highly suggestive of UTI. CT abdomen/pelvis also suggestive of left pyelitis/pyelonephritis. Patient's pressures continue to be soft after 2 L bolus, systolics in the 90s. Case discussed with ED provider and decision was made to admit patient for sepsis secondary to pyelonephritis. #Pyelonephritis #Septic shock ? Met SIRS criteria with fever, tachycardia, leukocytosis. ? Presents with 1 day onset of fevers, abdominal pain, left-sided CVA tenderness. No urinary symptoms however, but does have suprapubic tenderness. ? MAPs continue to be between 60 and 65 in spite of 2 L NS bolus. ? Initial WBC 14.2. ? UA highly suggestive of UTI, previous urine cultures were pansensitive in 2021. ? IV ceftriaxone day 1. ? Continue NS at 100 mL/h. No signs of volume overload. ? Levophed as needed for MAP goal > 65. ? Follow-up blood, urine cultures. Of note, blood cultures were obtained after ED had given ceftriaxone. #Type 2 diabetes ? LDSSI, ACHS glucose checks. #Hypertension ? Resume home medications once reconciled. Full code DVT prophylaxis: Lovenox 40
--- NOTE | 2024-07-27 04:53 | PC.NURSE ---
report given to екатерина
[2024-07-27] MEDS: ACETAMINOPHEN 325MG TAB 650 MG PO ×2 (05:55→11:15)
[2024-07-27 05:58] LABS: POC Glucose,Bedside 135 (70-110)
[2024-07-27 07:19] LABS: Albumin Level 3.2 g/dl (3.5-5.0); Chloride 111 mmol/L (98-107)
[2024-07-27 07:20] LABS: Potassium 3.1 mmoL/L (3.5-5.1); Sodium 138 mmol/L (136-145)
[2024-07-27 07:22] LABS: Alanine Aminotransferase 30 U/L (12-78); Alkaline Phosphatase 82 U/L (38-126); Anion Gap 7.1 mEq/L (5-15); Aspartate Amino Transferase 32 U/L (14-36); Bilirubin,Total 0.6 mg/dl (0.2-1.3); Blood Urea Nitrogen 17 mg/dl (7-17); Carbon Dioxide 23 mmol/L (22.0-30.0); Creatinine Clearance Estimated 80 mL/min (50-200); Estimated Glomerular Filt Rate 85 ml/min (>60); GFR (African American) 103 ML/MIN (>60)
[2024-07-27 07:23] LABS: Albumin/Globulin Ratio 1.2 (1.1-1.8); Calcium 8.5 mg/dl (8.4-10.2); Globulin 2.6 g/dL (1.3-3.2); Glucose 135 mg/dl (74-100); Magnesium 1.8 mg/dl (1.6-2.3); Total Protein,Serum 5.8 g/dl (6.3-8.2)
[2024-07-27 07:24] LABS: Basophils # 0.1 K/mm3 (0-0.2); Eosinophils # 0.1 K/mm3 (0.0-0.4); Lymphocytes # 0.8 K/mm3 (0.7-4.5)
[2024-07-27 07:36] LABS: Troponin I < 0.01 ng/ml (0.00-0.034)
[2024-07-27 08:18] LABS: Basophils % 0.3 % (0.1-2.0); Eosinophils % 0.3 % (0.1-12.0); Hematocrit 36.9 % (37.0-47.0); Lymphocytes % 4.7 % (10-50); Mean Corpuscular HGB Conc 32.9 g/dL (31.8-35.4); Mean Corpuscular Hemoglobin 30.9 pg (27.0-31.2); Mean Corpuscular Volume 93.8 fl (81-99); Mean Platelet Volume 7.8 fl (7.4-10.4); Monocytes # 0.6 K/mm3 (0.1-1.0); Monocytes % 3.7 % (1.7-9.3); Neutrophils # 15.5 K/mm3 (1.8-7.8); Platelet Count 333 K/mm3 (142-424); Red Blood Count 3.93 M/mm3 (4.20-5.40); Red Cell Distribution Width 14.2 % (11.5-17.5); White Blood Count 17.1 K/mm3 (4.8-10.8)
[2024-07-27 08:19] LABS: Hemoglobin 12.1 g/dL (12.2-16.2)
[2024-07-27] MEDS: 0.9 % SODIUM CHLORIDE 1000ML 1,000 ML 100 ML IV (08:45)
[2024-07-27] MEDS: ENOXAPARIN 40MG/0.4ML SYRINGE 40 MG SUBCUT (08:45)
[2024-07-27 08:57] LABS: Troponin I < 0.01 ng/ml (0.00-0.034)
--- NOTE | 2024-07-27 09:57 | HMH.PHAINT1 ---
Pharmacy Intervention Comments: MEDICATION RECONCILIATION COMPLETED ON PATIENT USING EXTERNAL FILL HISTORY FROM PHARMACY. -MAURICIO HORNE, AN[facility]
--- OUTSIDE RECORDS SUMMARY | 2024-07-27 11:54 | XMS_ITS | Encounter Summary ---
Author Organization [facility] [place] [id number] Care Team Providers Care Excel Expert Name Role Phone Unavailable Primary Care Provider Unavailabl e Encounter Details Date Type Department Care Team (Latest Contact Info) Description 11/02/2021 Travel Social History Tobacco Use Types Packs/Day Years Used Date Smoking Tobacco: Never Assessed Comments Unknown Sex and Gender Information Value Date Recorded Sex Assigned at Not on file Legal Sex Female 1:06 PM EST Gender Identity Not on file Sexual Orientation Not on file COVID-19 Exposure Response Date Recorded In the last month, have you been in contact with someone who was confirmed or suspected to have Coronavirus / COVID-19? No / Unsure 11/02/2021 12:04 PM EST documented as of this encounter Plan of Treatment Not on file documented as of this encounter Visit Diagnoses Not on filedocumented in this encounter
--- OUTSIDE RECORDS SUMMARY | 2024-07-27 11:54 | XMS_ITS | Encounter Summary ---
Author Organization [place] [address] Care Team Providers Care Welt Slasher Name Role Phone Unavailable Primary Care Provider Unavailabl e Reason for Referral * Mammography (Routine) - Closed Specialty Diagnoses / Procedures Referred By Vita lu Referred To Contact Radiology Diagnoses Encounter for screening mammogram for malignant neoplasm of breast Procedures MM MAMMO DIGITAL THANH SCREEN BILAT Provider, Not In [facility] Referral ID Status Reason Start Date Expiration Date Visits Re quested Visits Authorized [id number] Closed 10/05/2021 10/05/2023 1 1 Reason for Visit * Mammography (Routine) - Closed Specialty Diagnoses / Procedures Referred By Vita lu Referred To Contact Radiology Diagnoses Encounter for screening mammogram for malignant neoplasm of breast Procedures MM MAMMO DIGITAL THANH SCREEN BILAT Provider, Not In [facility] Referral ID Status Reason Start Date Expiration Date Visits Re quested Visits Authorized [id number] Closed 10/05/2021 10/05/2023 1 1 Encounter Details Date Type Department Care Team (Latest Contact Info) Description 11/02/2021 12:06 PM EST - 11/02/2021 11:59 PM EST Hospital Encounter Mobile Mammography Other Location View online schedule for mobile van location [phone] Provider, Not In [facility] Encounter for screening mammogram for malignant neoplasm of breast Discharge Disposition: Home or Self Care Social History Tobacco Use Types Packs/Day Years [...] PM EST documented as of this encounter Discharge Disposition Disposition Code Departure Means Destination Home or Self Care documented in this encounter Plan of Treatment Not on file documented as of this encounter Procedures Procedure Name Priority Date/Time Associated Diagnosis Comments MM MAMMO DIGITAL THANH SCREEN BILAT Routine 11/02/2021 12:14 PM EST Encounter for screening mammogram for malignant neoplasm of breast documented in this encounter Results * MM MAMMO DIGITAL THANH SCREEN BILAT (11/02/2021 12:14 PM EST) Anatomical Region Laterality Modality Breast Bilateral Mammography 11/09/2021 12:3 8 PM EDT Impressions 11/09/2021 12:38 PM EDT Negative ??(LCD-Aavtvibi-0) ~ RECOMMENDATION: Routine screening mammogram in 1 year. ~ DISCLAIMER * Any patient with a palpable abnormality, unexplained by breast imaging, should be managed on clinical basis by the attending physician. * Breast imaging has a false negative rate of 15%. * The patient was notified by mail of the results of this examination. *The patient's information was entered into a reminder system with a target due date for the next mammogram, in accordance with the [employer] and the Society of Breast Imaging recommendations. Narrative 11/09/2021 12:38 PM EDT Procedure:MM MAMMO DIGITAL THANH SCREEN BILAT ~ Reason for exam: screening, asymptomatic. Z12.31-Encounter for screening mammogram for malignant neoplasm of wdsvic-TOV-55-CM ~ MM MAMMO DIGITAL THANH SCREEN BILAT Bilateral CC and MLO view(s) were taken. The breast tissue is almost entirely fat. Prior study comparison: Compared with prior studies the most recent being outside screening studies from [facility] 06/28/2019, 11/28/2016, 09/02/2013. No mammographic evidence of malignancy. No suspicious calcifications. ~ Procedure Note Sadi Conklin DO - 11/09/2021 Procedure:MM MAMMO DIGITAL THANH SCREEN BILAT ~ Reason for exam: screening, asymptomatic. Z12.31-Encounter for screening mammogram for malignant neoplasm of zhwbgx-HUY-54-CM ~ MM MAMMO DIGITAL THANH SCREEN BILAT Bilateral CC and MLO view(s) were taken. The breast tissue is almost entirely fat. Prior study comparison: Compared with prior studies the most recentbeing outside screening studies from [facility] 06/28/2019, 11/28/2016,09/02/2013. No mammographic evidence of malignancy. No suspicious calcifications. ~ IMPRESSION: Negative (DFZ-Zvmlitcx-4) ~ RECOMMENDATION: Routine screening mammogram in 1 year. ~ DISCLAIMER * Any patient with a palpable abnormality, unexplained by breast imaging, should be managed on clinical basis by the attending physician. * Breast imaging has a false negative rate of 15%. * The patient was notified by mail of the results of this examination. *The patient's information was entered into a reminder system with atarget due date for the next mammogram, in accordance with the [employer] and the Society of Breast Imaging recommendations. us Not In Epic Provider IMG MAMMOGRAPHY ORDERABLES Final Result documented in this encounter Visit Diagnoses Diagnosis Encounter for screening mammogram for malignant neoplasm of breast Other screening mammogram documented in this encounter
--- OUTSIDE RECORDS SUMMARY | 2024-07-27 11:54 | XMS_ITS | Clinical Summary ---
Author Organization [facility] Address [address] [place] [address] Phone Care Team Providers Care Court Manager Name Role Phone Unavailable Primary Care Provider Unavailabl e Social History Tobacco Use Types Packs/Day Years Used Date Smoking Tobacco: Never Assessed Comments Unknown Sex and Gender Information Value Date Recorded Sex Assigned at Not on file Legal Sex Female 1:06 PM EST Gender Identity Not on file Sexual Orientation Not on file Plan of Treatment Health Maintenance Due Date Last Done Comments Annual Wellness Exam 1964 Hepatitis C Screening 1980 DTaP/TDaP/Td (1 - Tdap) 1981 Cervical Cancer Screening 11/05/1983 Pap Smear 11/05/1983 HPV/Pap Cotest 1992 Cologuard 11/05/2007 Colon Cancer Screening 11/05/2007 Colonoscopy 11/05/2007 FIT 11/05/2007 Sigmoidoscopy 11/05/2007 Virtual Colonography 11/05/2007 Zoster (1 of 2) 2012 Breast Cancer Screening 11/03/2023 11/02/2021 COVID-19 Vaccine (1 - 2023-2 5 season) 2024 Influenza Vaccine (#1) 2024 Hepatitis B Vaccine Aged Out No longe r eligible based on patient's age to complete this topic Pneumococcal Vaccine 0-64 Aged Out No longer eligible based on patient's age to complete this topic Procedures Procedure Name Priority Date/Time Associated Diagnosis Comments MM MAMMO DIGITAL THANH SCREEN BILAT Routine 11/02/2021 12:14 PM EST Encounter for screening mammogram for malignant neoplasm of breast from Last 3 Months or Most Recently Relevant to Health Maintenance Results * MM MAMMO DIGITAL THANH SCREEN BILAT (11/02/2021 12:14 PM EST) Anatomical Region Laterality Modality Breast Bilateral Mammography 11/09/2021 12:3 8 PM EDT Impressions 11/09/2021 12:38 PM EDT Negative ??(FHZ-Tlmtzsym-1) ~ RECOMMENDATION: Routine screening mammogram in 1 [...] the next mammogram, in accordance with the [employer] and the Society of Breast Imaging recommendations. Narrative 11/09/2021 12:38 PM EDT Procedure:MM MAMMO DIGITAL THANH SCREEN BILAT ~ Reason for exam: screening, asymptomatic. Z12.31-Encounter for screening mammogram for malignant neoplasm of ddhurx-JAS-14-CM ~ MM MAMMO DIGITAL THANH SCREEN BILAT Bilateral CC and MLO view(s) were taken. The breast tissue is almost entirely fat. Prior study comparison: Compared with prior studies the most recent being outside screening studies from [facility] 06/28/2019, 11/28/2016, 09/02/2013. No mammographic evidence of malignancy. No suspicious calcifications. ~ Procedure Note Sadi Coknlin, - 11/09/2021 Procedure:MM MAMMO DIGITAL THANH SCREEN BILAT ~ Reason for exam: screening, asymptomatic. Z12.31-Encounter for screening mammogram for malignant neoplasm of pajwxr-TCH-78-CM ~ MM MAMMO DIGITAL THANH SCREEN BILAT Bilateral CC and MLO view(s) were taken. The breast tissue is almost entirely fat. Prior study comparison: Compared with prior studies the most recentbeing outside screening studies from [facility] 06/28/2019, 11/28/2016,09/02/2013. No mammographic evidence of malignancy. No suspicious calcifications. ~ IMPRESSION: Negative (RSM-Nipwjcop-1) ~ RECOMMENDATION: Routine screening mammogram in 1 [...] the next mammogram, in accordance with the [employer] and the Society of Breast Imaging recommendations. us Not In [facility] Provider IMG MAMMOGRAPHY ORDERABLES Final Result from Last 3 Months or Most Recently Relevant to Health Maintenance
--- OUTSIDE RECORDS SUMMARY | 2024-07-27 11:54 | XMS_ITS ---
Author Organization Unknown Medications Medication Instructions Effective Dates (start - stop) Status 0.5 ML dulaglutide 3 MG/ML Auto-Injector [Trulicity] 9494-95-26B01:00:00.000+00: 00 - Completed dapagliflozin 5 MG Oral Tabl et [Farxiga] 8157-01-09U66:00:00.000+00: 00 - Completed 0.5 ML dulaglutide 3 MG/ML Auto-Injector [Trulicity] 3960-61-45H08:00:00.000+00: 00 - Completed dapagliflozin 5 MG Oral Tabl et [Farxiga] 1752-23-84Z85:00:00.000+00: 00 - Completed 0.5 ML dulaglutide 3 MG/ML Auto-Injector [Trulicity] 6037-80-90Z68:00:00.000+00: 00 - Completed ergocalciferol 1.25 MG Oral Capsule 7077-43-65S70:00:00.000+00: 00 - Completed 0.5 ML dulaglutide 3 MG/ML Auto-Injector [Trulicity] 9229-34-16L74:00:00.000+00: 00 - Completed 0.25 MG, 0.5 MG Dose 1.5 ML semaglutide 1.34 MG/ML Pen Injector [Ozempic] 8582-52-79H41:00:00.000+00: 00 - Completed ergocalciferol 1.25 MG Oral Capsule 8778-76-29Z08:00:00.000+00: 00 - Completed 0.5 ML dulaglutide 3 MG/ML Auto-Injector [Trulicity] 3050-61-03R87:00:00.000+00: 00 - Completed 0.5 ML dulaglutide 3 MG/ML Auto-Injector [Trulicity] 3212-14-63Z32:00:00.000+00: 00 - Completed 0.5 ML dulaglutide 3 MG/ML Auto-Injector [[facility]] 0863-14-41K35:00:00.000+00: 00 - Completed ciprofloxacin 500 MG Oral Tablet 4431-91-69O21:00:00.000+00: 00 - Completed dapagliflozin 5 MG Oral Tabl et [Farxiga] 4334-40-96F25:00:00.000+00: 00 - Completed sulfamethoxazole 800 MG / trimethoprim 160 MG Oral Tablet 2258-82-11S28:00:00.00 0+00: 00 - Completed simvastatin 20 MG Oral Tablet 19-09-02:00:00.000+00: 00 - Completed 24 HR venlafaxine 37.5 MG Ex tended Release Oral Capsule 2133-35-42Q72:00:00.000+00: 00 - Completed 24 HR glipizide 10 MG Extend ed Release Oral Tablet 0997-58-77A10:00:00.000+00: 00 - Completed lisinopril 10 MG Oral Tablet 10-08-03:00:00.000+00: 00 - Completed - 9706-96-30D23:00 :00.000+00: 00 - Completed {21 (methylprednisolone 4 MG Oral Tablet) } Pack 5827-49-37S95:00:00.000+00: 00 - Completed - 6240-71-68Y13:00 :00.000+00: 00 - Completed 24 HR venlafaxine 37.5 MG Ex tended Release Oral Capsule 6353-83-19L49:00:00.000+00: 00 - Completed 24 HR glipizide 10 MG Extend ed Release Oral Tablet 3970-20-46I75:00:00.000+00: 00 - Completed gabapentin 100 MG Oral Capsule 199-78-19I42:00:00.000+00: 00 - Completed - 2771-17-59O63:00 :00.000+00: 00 - Completed amoxicillin 875 MG / clavula tereza 125 MG Oral Tablet 6065-76-25K54:00:00.000+00: 00 - Completed simvastatin 40 MG Oral Tablet 17-11-22:00:00.000+00: 00 - Completed {21 (methylprednisolone 4 MG Oral Tablet) } Pack 3762-25-17K79:00:00.000+00: 00 - Completed - 5718-53-39Z75:00 :00.000+00: 00 - Completed - 5494-13-19A52:00 :00.000+00: 00 - Completed meloxicam 7.5 MG Oral Tablet 10-06-25:00:00.000+00: 00 - Completed 24 HR glipizide 10 MG Extend ed Release Oral Tablet 2075-11-17P70:00:00.000+00: 00 - Completed tramadol hydrochloride 50 MG Oral Tablet 5626-08-16L21:00:00.000+00: 00 - Completed ergocalciferol 1.25 MG Oral Capsule 1049-96-80W68:00:00.000+00: 00 - Completed simvastatin 10 MG Oral Tablet 19-05-26:00:00.000+00: 00 - Completed ciprofloxacin 3 MG/ML Ophtha lmic Solution 5669-29-85T63:00:00.000+00: 00 - Completed simvastatin 10 MG Oral Tablet 18-08-27:00:00.000+00: 00 - Completed lisinopril 10 MG Oral Tablet 10-04-27:00:00.000+00: 00 - Completed 24 HR glipizide 10 MG Extend ed Release Oral Tablet 7818-23-52I65:00:00.000+00: 00 - Completed - 9270-23-72I56:00 :00.000+00: 00 - Completed lisinopril 10 MG Oral Tablet 10-27-08:00:00.000+00: 00 - Completed rosuvastatin calcium 10 MG O ral Tablet 7486-00-49J74:00:00.000+00: 00 - Completed - 6453-64-92G25:00 :00.000+00: 00 - Completed lisinopril 10 MG Oral Tablet 10-31-07:00:00.000+00: 00 - Completed aspirin 81 MG Delayed Releas e Oral Tablet 5772-13-33K85:00:00.000+00: 00 - Completed ergocalciferol 1.25 MG Oral Capsule 6702-27-53R62:00:00.000+00: 00 - Completed ergocalciferol 1.25 MG Oral Capsule 6486-58-49V52:00:00.000+00: 00 - Completed Patient Care team information Name Category Status Period Participants - - Proposed period not known -
--- OUTSIDE RECORDS SUMMARY | 2024-07-27 11:54 | XMS_ITS | Referral Summary ---
Author Organization [facility] Address [address] [place] [address] Phone Care Team Providers Care Clinical Psychology Professor Name Role Phone Unavailable Primary Care Provider Unavailabl e Social History Tobacco Use Types Packs/Day Years Used Date Smoking Tobacco: Never Assessed Comments Unknown Sex and Gender Information Value Date Recorded Sex Assigned at Not on file Legal Sex Female 1:06 PM EST Gender Identity Not on file Sexual Orientation Not on file Plan of Treatment Not on file Procedures Procedure Name Priority Date/Time Associated Diagnosis [...] EDT Impressions 11/09/2021 12:38 PM EDT Negative ??(WDU-Cznplyua-9) ~ RECOMMENDATION: Routine screening mammogram in 1 [...] the next mammogram, in accordance with the [employer] and the Society of Breast Imaging recommendations. Narrative 11/09/2021 12:38 PM EDT Procedure:MM MAMMO DIGITAL THANH SCREEN BILAT ~ Reason for exam: screening, asymptomatic. Z12.31-Encounter for screening mammogram for malignant neoplasm of yldsut-NMW-47-CM ~ MM MAMMO DIGITAL THANH SCREEN BILAT Bilateral CC and MLO view(s) were taken. The breast tissue is almost entirely fat. Prior study comparison: Compared with prior studies the most recent being outside screening studies from [facility] 06/28/2019, 11/28/2016, 09/02/2013. No mammographic evidence of malignancy. No suspicious calcifications. ~ Procedure Note Sadi Conklin, - 11/09/2021 Procedure:MM MAMMO DIGITAL THANH SCREEN BILAT ~ Reason for exam: screening, asymptomatic. Z12.31-Encounter for screening mammogram for malignant neoplasm of nucoji-NMC-78-CM ~ MM MAMMO DIGITAL THANH SCREEN BILAT Bilateral CC and MLO view(s) were taken. The breast tissue is almost entirely fat. Prior study comparison: Compared with prior studies the most recentbeing outside screening studies from [facility] 06/28/2019, 11/28/2016,09/02/2013. No mammographic evidence of malignancy. No suspicious calcifications. ~ IMPRESSION: Negative (FBS-Iezwgvqi-5) ~ RECOMMENDATION: Routine screening mammogram in 1 [...] the next mammogram, in accordance with the [employer] and the Society of Breast Imaging recommendations. us Not In [facility] Provider IMG MAMMOGRAPHY ORDERABLES Final Result from Last 3 Months or Most Recently Relevant to Health Maintenance
[2024-07-27 11:58] LABS: POC Glucose,Bedside 141 (70-110)
[2024-07-27] MEDS: POTASSIUM CHLORIDE 20MEQ TAB 40 MEQ PO ×2 (17:51→20:37)
--- NOTE | 2024-07-27 18:16 | PC.NURSE ---
Pt is currently sitting up in bed. Has c/o some tenderness to abdomen this shift. Ambulating in room and to BR without difficulty. Sat up in chair today. Voids via toilet. Medicated per oct. Call light within reach.
[2024-07-27 18:18] LABS: POC Glucose,Bedside 175 (70-110)
[2024-07-27 20:46] LABS: POC Glucose,Bedside 184 (70-110)
[2024-07-28] VITALS: BP 108/60; PULSE 89; RESP 16; TEMP 37.3; O2SAT 92
[2024-07-28 04:00] VITALS: BP 115/60; PULSE 80; RESP 18; TEMP 36.8; O2SAT 93; BMI 31.2
[2024-07-28 06:26] LABS: POC Glucose,Bedside 123 (70-110)
--- NOTE | 2024-07-28 06:45 | PC.NURSE ---
patient has rested well this shift, no acute changes from previous assessment, no c/o pain, call light in reach
[2024-07-28 06:52] LABS: Basophils % 0.2 % (0.1-2.0); Eosinophils # 0.2 K/mm3 (0.0-0.4); Eosinophils % 1.1 % (0.1-12.0); Hematocrit 36.1 % (37.0-47.0); Hemoglobin 12.2 g/dL (12.2-16.2); Lymphocytes # 1.5 K/mm3 (0.7-4.5); Lymphocytes % 11.4 % (10-50); Mean Corpuscular HGB Conc 33.7 g/dL (31.8-35.4); Mean Corpuscular Hemoglobin 31.5 pg (27.0-31.2); Mean Corpuscular Volume 93.5 fl (81-99); Mean Platelet Volume 7.5 fl (7.4-10.4); Monocytes # 0.9 K/mm3 (0.1-1.0); Monocytes % 6.6 % (1.7-9.3); Neutrophils # 10.9 K/mm3 (1.8-7.8); Neutrophils % 80.7 % (37.0-80.0); Platelet Count 308 K/mm3 (142-424); Red Blood Count 3.86 M/mm3 (4.20-5.40); Red Cell Distribution Width 14.1 % (11.5-17.5); White Blood Count 13.5 K/mm3 (4.8-10.8)
[2024-07-28 07:07] LABS: Chloride 111 mmol/L (98-107)
[2024-07-28 07:08] LABS: Albumin Level 3.2 g/dl (3.5-5.0); Sodium 138 mmol/L (136-145)
[2024-07-28 07:10] LABS: Blood Urea Nitrogen 13 mg/dl (7-17); Carbon Dioxide 23 mmol/L (22.0-30.0); Creatinine Clearance Estimated 77 mL/min (50-200); Estimated Glomerular Filt Rate 102 ml/min (>60); GFR (African American) 123 ML/MIN (>60)
[2024-07-28 07:11] LABS: Alanine Aminotransferase 26 U/L (12-78); Albumin/Globulin Ratio 1.2 (1.1-1.8); Alkaline Phosphatase 79 U/L (38-126); Aspartate Amino Transferase 29 U/L (14-36); Bilirubin,Total 0.7 mg/dl (0.2-1.3); Calcium 8.3 mg/dl (8.4-10.2); Globulin 2.6 g/dL (1.3-3.2); Glucose 126 mg/dl (74-100); Magnesium 2.1 mg/dl (1.6-2.3); Total Protein,Serum 5.8 g/dl (6.3-8.2)
[2024-07-28 08:00] VITALS: BP 107/57; PULSE 80; RESP 16; TEMP 36.9; O2SAT 96
--- NOTE | 2024-07-28 08:17 | P.DS_ITS ---
General Admission date:: 07/27/24 Discharge date: 07/28/24 HPI HPI HPI: Sadie Juarez is a 63-year-old female with medical history of type 2 diabetes, hypertension who presents after fever up to 102 Fahrenheit at home and rigors. Per daughter, she was cyanotic in the lips and fingers at home and only improved after she got to the ED and received fluids. Patient states has been having some abdominal pain, including left lower back pain. No urinary symptoms. No chest pain, shortness of breath, cough, constipation/diarrhea. Workup in the ED significant for WBC 14.2 and UA highly suggestive of UTI. CT abdomen/pelvis also suggestive of left pyelitis/pyelonephritis. Patient's pressures continue to be soft after 2 L bolus, systolics in the 90s. Case discussed with ED provider and decision was made to admit patient for sepsis secondary to pyelonephritis. Hospital Course Hospital Course Hospital Course: Sadie Juarez is a 63-year-old female with medical history of type 2 diabetes, hypertension who presents after fever up to 102 Fahrenheit at home and rigors. Per daughter, she was cyanotic in the lips and fingers at home and only improved after she got to the ED and received fluids. Patient states has been having some abdominal pain, including left lower back pain. No urinary symptoms. No chest pain, shortness of breath, cough, constipation/diarrhea. Workup in the ED significant for WBC 14.2 and UA highly suggestive of UTI. CT abdomen/pelvis also suggestive of left pyelitis/pyelonephritis. Patient's pressures continue to be soft after 2 L bolus, systolics in the 90s. Case discussed with ED provider and decision was made to admit patient for sepsis secondary to pyelonephritis. Patient responded very well to antibiotics. White count improving. Urine growing gram-negative rods. Will discharge home on oral Levaquin to complete 7 days of therapy. Given her improvement clinically, stable to discharge home with further management as an outpatient. Problems addressed as follows: #Pyelonephritis #Septic shock ? Met SIRS criteria with fever, tachycardia, leukocytosis. Presents with 1 day onset of fevers, abdominal pain, left-sided CVA tenderness. No urinary symptoms however, but does have suprapubic tenderness. Received bolus of fluids. In itial white count 14. Urine suggestive of UTI. Imaging with CT of abdomen showing pyelonephritis on the left side with stone in the lower pole that is nonobstructing. Stone was present earlier this year on imaging as well. Initiated on ceftriaxone. Transitioned to Levaquin to complete 7 days of empiric therapy. Growing gram-negative rods by day of discharge. In regard to her stone, will need to follow-up with urology to evaluate for possible nephrolithiasis as the stone if seeded could be a source of infection. Tolerating p.o. intake. Afebrile for over 24 hours. #Type 2 diabetes ? LDSSI, ACHS glucose checks during admission. Resume home of [facility] recommend holding Farxiga at discharge due to active urinary tract infection. #Hypertension ? Held during admission due to soft blood pressures. Resume home regimen at discharge. Total time spent on discharge 32 minutes in counseling, documentation, chart review, and direct care with patient. Exam Data for Last 24 hours Vital signs and Labs for Last 24 Hours: Temp Pulse Resp BP Pulse Ox O2 Del Method 98.3 F 80 18 115/60 93 L Room Air 07/28/24 04:00 07/28/24 04:00 07/28/24 04:00 07/28/24 04:00 07/28/24 04:00 07/28/24 07:45 Laboratory Results - last 24 hr 07/27/24 03:58: Urine Color Yellow, Urine Appearance Clear, Urine pH 6.0, Ur Specific [place] 1.015, Urine Protein 2+ A, Urine Glucose (UA) 2+, Urine Ketones 1+, Urine Blood 2+ A, Urine Nitrate Positive A, Urine Bilirubin Negative, Urine Urobilinogen 0.2, Ur Leukocyte Esterase 1+ A, Urine RBC 20-50, Urine WBC 10-20, Ur Squamous Epith Cells Occasional, Urine Bacteria 3+ 07/27/24 06:54: WBC 17.1 H, RBC 3.93 L, Hgb 12.1 L D, Hct 36.9 L, MCV 93.8, MCH 30.9, MCHC 32.9, RDW 14.2, Plt Count 333, MPV 7.8, Neut % (Auto) 91.0 H, Lymph % (Auto) 4.7 L, [place] % (Auto) 3.7, Eos % (Auto) 0.3, Baso % (Auto) 0.3, Neut # (Auto) 15.5 H, Lymph # (Auto) 0.8, [place] # (Auto) 0.6, Eos # (Auto) 0.1, Baso # (Auto) 0.1 07/27/24 08:22: Troponin I < 0.01 07/27/24 11:51: POC Glucose 141 H 07/27/24 18:08: POC Glucose 175 H 07/27/24 20:35: POC Glucose 184 H 07/28/24 05:14: POC Glucose 123 H 07/28/24 06:21: WBC 13.5 H, RBC 3.86 L, Hgb 12.2, Hct 36.1 L, MCV 93.5, MCH 31.5 H, MCHC 33.7, RDW 14.1, Plt Count 308, MPV 7.5, Neut % (Auto) 80.7 H, Lymph % (Auto) 11.4, [place] % (Auto) 6.6, Eos % (Auto) 1.1, Baso % (Auto) 0.2, Neut # (A uto) 10.9 H, Lymph # (Auto) 1.5, [place] # (Auto) 0.9, Eos # (Auto) 0.2, Baso # (Auto) 0.0, Sodium 138, Potassium 4.0 D, Chloride 111 H, Carbon Dioxide 23, Anion Gap 8.0, BUN 13, Creatinine 0.60, Estimated Creat Clear 77, Estimated GFR 102, Est GFR ( Amer) 123, Glucose 126 H, Calcium 8.3 L, Magnesium 2.1 D, Total Bilirubin 0.7, AST 29, ALT 26, Alkaline Phosphatase 79, Total Protein 5.8 L, Albumin 3.2 L, Globulin 2.6, Albumin/Globulin Ratio 1.2 I & O for Last 24 hours: Intake & Output 07/25/24 07/26/24 07/27/24 07/28/24 23:59 23:59 23:59 23:59 Intake Total 1300 / 1300 Output Total 0 / 0 0 / 0 Balance 1300 / 1300 0 / 0 Weight 85.275 kg 82.962 kg Microbiology Reports for the Last 24 Hours: Microbiology 07/27/24 03:58 Urine,Clean Catch Urine Culture - Preliminary Gram Negative Rods Constitutional Constitutional: no acute distress, obese and cooperative *Routine HEENT Exam Head: Present normocephalic Eye: Present EOMI and PERRL ENT: Present mucous membranes moist *Routine Neck Exam Neck: Present supple; Absent lymphadenopathy *Routine Respiratory Exam Respiratory: Present CTA bilaterally; Absent rhonchi or wheezes *Routine Cardiovascular Exam Cardiovascular: Present RRR *Routine Abdominal Exam Abdominal: Present soft and normoactive bowel sounds; Absent tenderness or distended *Routine Rectal Exam Patient deferred: visual exam *Routine Exam Patient deferred: external exam *Routine Extremities Exam Extremities: Absent cyanosis, clubbing or edema Routine Back/Spine/Pelvis Exam Comments: minimal left sided CVA tenderness to percussion *Routine Skin Exam Skin: Present warm; Absent rash *Routine Neurological Exam Neurological: Present alert, oriented X3 and moving all extremities; Absent altered mental status Results Data Completed and Pending Labs on day of discharge: Labs from last 24 hours 07/28/24 07/28/24 07/27/24 06:21 05:14 20:35 WBC 13.5 H RBC 3.86 L Hgb 12.2 Hct 36.1 L MCV 93.5 MCH 31.5 H MCHC 33.7 RDW 14.1 Plt Count 308 MPV 7.5 Neut % (Auto) 80.7 H Lymph % (Auto) 11.4 [place] % (Auto) 6.6 Eos % (Auto) 1.1 Baso % (Auto) 0.2 Neut # (Auto) 10.9 H Lymph # (Auto) 1.5 [place] # (Auto) 0.9 Eos # (Auto) 0.2 Baso # (Auto) 0.0 Sodium 138 Potassium 4.0 D Chloride 111 H Carbon Dioxide 23 Anion Gap 8.0 BUN 13 Creatinine 0.60 Estimated Creat Clear 77 Estimated GFR 102 Est GFR ( Amer) 123 Glucose 126 H POC Glucose 123 H 184 H Calcium 8.3 L Magnesium 2.1 D Total Bilirubin 0.7 AST 29 ALT 26 Alkaline Phosphatase 79 Troponin I Total Protein 5.8 L Albumin 3.2 L Globulin 2.6 Albumin/Globulin Ratio 1.2 Urine Color Urine Appearance Urine pH Ur Specific [place] Urine Protein Urine Glucose (UA) Urine Ketones Urine Blood Urine Nitrate Urine Bilirubin Urine Urobilinogen Ur Leukocyte Esterase Urine RBC Urine WBC Ur Squamous Epith Cells Urine Bacteria 07/27/24 07/27/24 07/27/24 18:08 11:51 08:22 WBC RBC Hgb Hct MCV MCH MCHC RDW Plt Count MPV Neut % (Auto) Lymph % (Auto) [place] % (Auto) Eos % (Auto) Baso % (Auto) Neut # (Auto) Lymph # (Auto) [place] # (Auto) Eos # (Auto) Baso # (Auto) Sodium Potassium Chloride Carbon Dioxide Anion Gap BUN Creatinine Estimated Creat Clear Estimated GFR Est GFR ( Amer) Glucose POC Glucose 175 H 141 H Calcium Magnesium Total Bilirubin AST ALT Alkaline Phosphatase Troponin I < 0.01 Total Protein Albumin Globulin Albumin/Globulin Ratio Urine Color Urine Appearance Urine pH Ur Specific [place] Urine Protein Urine Glucose (UA) Urine Ketones Urine Blood Urine Nitrate Urine Bilirubin Urine Urobilinogen Ur Leukocyte Esterase Urine RBC Urine WBC Ur Squamous Epith Cells Urine Bacteria 07/27/24 07/27/24 06:54 03:58 WBC 17.1 H RBC 3.93 L Hgb 12.1 L D Hct 36.9 L MCV 93.8 MCH 30.9 MCHC 32.9 RDW 14.2 Plt Count 333 MPV 7.8 Neut % (Auto) 91.0 H Lymph % (Auto) 4.7 L [place] % (Auto) 3.7 Eos % (Auto) 0.3 Baso % (Auto) 0.3 Neut # (Auto) 15.5 H Lymph # (Auto) 0.8 [place] # (Auto) 0.6 Eos # (Auto) 0.1 Baso # (Auto) 0.1 Sodium Potassium Chloride Carbon Dioxide Anion Gap BUN Creatinine Estimated Creat Clear Estimated GFR Est GFR ( Amer) Glucose POC Glucose Calcium Magnesium Total Bilirubin AST ALT Alkaline Phosphatase Troponin I Total Protein Albumin Globulin Albumin/Globulin Ratio Urine Color Yellow Urine Appearance Clear Urine pH 6.0 Ur Specific [place] 1.015 Urine Protein 2+ A Urine Glucose (UA) 2+ Urine Ketones 1+ Urine Blood 2+ A Urine Nitrate Positive A Urine Bilirubin Negative Urine Urobilinogen 0.2 Ur Leukocyte Esterase 1+ A Urine RBC 20-50 Urine WBC 10-20 Ur Squamous Epith Cells Occasional Urine Bacteria 3+ Preliminary micro results at discharge 07/27/24 03:58 Urine Culture - Preliminary Urine,Clean Catch Gram Negative Rods DS: Diagnosis Discharge Diagnosis (1) Pyelonephritis: Status: Acute Code(s): N12 - Tubulo-interstitial nephritis, not specified as acute or chronic (2) Fever: Status: Acute Code(s): R50.9 - Fever, unspecified (3) Sepsis: Status: Acute Code(s): A41.9 - Sepsis, unspecified organism (4) UTI (urinary tract infection): Status: Acute Code(s): N39.0 - Urinary tract infection, site not specified (5) Septic shock: Status: Acute Code(s): A41.9 - Sepsis, unspecified organism; R65.21 - Severe sepsis with septic shock Meds Home Medications and Allergies Home Medications ?Medication ?Instructions ?Recorded ?Confirmed ?Type blood sugar diagnostic ([employer] #100 strips 02/24/23 07/27/24 Rx Ultra Test strips) loratadine 10 mg tablet (Claritin) 10 mg PO DAILY 12/14/23 07/27/24 History multivitamin (Daily Multi-Vitamin 1 tab PO DAILY 12/14/23 07/27/24 History tablet) vitamin B complex-folic acid 0.4 2 tab PO DAILY 12/14/23 07/27/24 History mg tablet (Super B Maxi Complex) zinc acetate 50 mg (zinc) capsule 50 mg PO DAILY 12/14/23 07/27/24 History (Galzin) ascorbic acid (vitamin C) 500 mg 1,000 mg PO DAILY 01/08/24 07/27/24 History capsule dapagliflozin propanediol 5 mg 5 mg PO DAILY 07/27/24 07/27/24 History tablet (Farxiga) dulaglutide 1.5 mg/0.5 mL 1.5 mg SQ WEEKLY 07/27/24 07/27/24 History subcutaneous pen injector (Trulicity) ergocalciferol (vitamin D2) 1,250 1,250 mcg PO WEEKLY 07/27/24 07/27/24 History mcg (50,000 unit) capsule famotidine 40 mg tablet 40 mg PO DAILY 07/27/24 07/27/24 History lisinopril 10 mg tablet 10 mg PO DAILY 07/27/24 07/27/24 History rimegepant 75 mg disintegrating 75 mg PO NEEDED PRN migraine 07/27/24 07/27/24 History tablet (Nurtec ODT) headache rosuvastatin 10 mg tablet 10 mg PO HS 07/27/24 07/27/24 History levofloxacin 750 mg tablet 750 mg PO DAILY 5 days #5 tabs 07/28/24 Rx New Prescriptions to Start Prescriptions: levofloxacin Patricia,Vicente Allergies Allergy/AdvReac Type Severity Reaction Status Date / Time No Known Allergies Allergy Verified 06/11/24 09:46 Discharge Plan Disposition Patient Disposition: Home, Self-Care Condition: Fair Follow up Plan Follow up with: Teresa Norris MD [Primary Care Provider] - Enter time for follow up (Lang Rios, call office Monday for appointment ) Corona Rogers MD [Referring] - Enter time for follow up Prescriptions/Medication Reconciliation: New levofloxacin 750 mg tablet 750 mg PO DAILY 5 Days Qty: 5 0RF Continued vitamin B complex-folic acid [Super B Maxi Complex] 0.4 mg tablet 2 tab PO DAILY Galzin 50 mg (zinc) capsule 50 mg PO DAILY loratadine [Claritin] 10 mg tablet 10 mg PO DAILY multivitamin [Daily Multi-Vitamin] Tablet 1 tab PO DAILY ascorbic acid (vitamin C) 500 mg capsule 1,000 mg PO DAILY (DME) OneTouch Ultra Test Strip See Rx Instructions .ROUTE .COMPLEX Qty: 100 12RF Dose Instruction: USE TO TEST BLOOD GLUCOSE THREE TIMES DAILY DIRECTED Rx Instructions: USE TO TEST BLOOD GLUCOSE THREE TIMES DAILY DIRECTED dapagliflozin propanediol [Farxiga] 5 mg Tablet 5 mg PO DAILY Trulicity 1.5 mg/0.5 mL pen injector 1.5 mg SQ WEEKLY Patient Comments: INJECT THE CONTENTS OF 1 PEN (1.5 MG / 0.5ML) SUBCUTANEOUSLY ONCE A WEEK famotidine 40 mg tablet 40 mg PO DAILY lisinopril 10 mg tablet 10 mg PO DAILY ergocalciferol (vitamin D2) 1,250 mcg (50,000 unit) capsule 1,250 mcg PO WEEKLY rosuvastatin 10 mg tablet 10 mg PO HS Nurtec ODT 75 mg tablet,disintegrating 75 mg PO NEEDED PRN (Reason: migraine headache) Problem Reconciliation Problems Reviewed?: Yes Patient Discharge Instructions ACTIVITY: Continue current activity DIET: continue same diet Patient Instructions: DI for Urinary Tract Infection (UTI), DI for Sepsis -- Adult Print Language: [place] Providers Primary Care Provider: Provider,Referral Admit Provider: Stevo Liao Attending Provider: Stevo Liao
[2024-07-28] MEDS: DAPAGLIFLOZIN PROPANEDIOL 10 MG TABLET 5 MG PO (09:37)
[2024-07-28] MEDS: LEVOFLOXACIN/D5W 750 MG/150 ML 750 MG/150 ML PIGGYBACK 100 MG IV (09:38)
--- NOTE | 2024-07-29 11:32 | SW/DCPLANNER ---
Spoke with patient on the phone. Patient stated that she has no concerns or questions at this time. Patient has made her an follow appointments and that she is doing well. Patient was able to pickle pumper her medicine that was filled at [facility]. Wilman James
== END 2024-07-28 12:03 | disposition home or self-care (01) ==
LOC: ER 04:51 → 2ND 10:52
PROVIDERS: Admitting Provider Student in an Organized Health Care Education/Training Program; Emergency Provider Emergency Medicine; Visit Provider Student in an Organized Health Care Education/Training Program
DX: N20.0 Calculus of kidney (principal); I10 Essential (primary) hypertension; Z79.899 Other long term (current) drug therapy; E11.9 Type 2 diabetes mellitus without complications
CPT/HCPCS: 36415; 71045; 74177; 80053; 81001; 82009; 82962; 83735; 84484; 85007; 85025; 85027; 85610; 87040; 87086; 87088; 87186; 87636; 93005; 99291; G0378; J0696; J1650; J1956; J7030; J7120; Q9967

== ENCOUNTER 2024-07-30 16:23 | Outpatient (CLI) | payer OTHER, SELFPAY | END 2024-07-30 23:59 | disposition home or self-care (01) | LOC: LAB.DROPOF 16:23 | PROVIDERS: PCP Internal Medicine; Visit Provider Internal Medicine | DX: A41.9 Sepsis, unspecified organism (principal); N39.0 Urinary tract infection, site not specified | CPT/HCPCS: 87086 ==

== ENCOUNTER 2024-09-05 09:45 | Outpatient (CLI) | payer OTHER, SELFPAY ==
[2024-09-05 10:33] LABS: Basophils % 0.5 % (0.1-2.0); Eosinophils # 0.2 K/mm3 (0.0-0.4); Eosinophils % 2.7 % (0.1-12.0); Hematocrit 43.1 % (37.0-47.0); Lymphocytes # 2.4 K/mm3 (0.7-4.5); Mean Corpuscular HGB Conc 32.5 g/dL (31.8-35.4); Mean Corpuscular Hemoglobin 30.6 pg (27.0-31.2); Mean Corpuscular Volume 94.3 fl (81-99); Mean Platelet Volume 10.3 fl (7.4-10.4); Monocytes # 0.6 K/mm3 (0.1-1.0); Monocytes % 6.9 % (1.7-9.3); Neutrophils # 5.2 K/mm3 (1.8-7.8); Neutrophils % 61.5 % (37.0-80.0); Platelet Count 347 K/mm3 (142-424); Red Blood Count 4.57 M/mm3 (4.20-5.40); Red Cell Distribution Width 13.4 % (11.5-17.5); White Blood Count 8.4 K/mm3 (4.8-10.8)
== END 2024-09-05 23:59 | disposition home or self-care (01) ==
LOC: LAB 09:46
PROVIDERS: PCP Internal Medicine; Visit Provider Internal Medicine
DX: Z00.00 Encounter for general adult medical examination without abnormal findings (principal)
CPT/HCPCS: 36415; 85025

== ENCOUNTER 2024-11-27 08:41 | Outpatient (CLI) | payer OTHER, SELFPAY ==
[2024-11-27 09:33] LABS: Albumin Level 4.3 g/dl (3.5-5.0); Chloride 105 mmol/L (98-107); Potassium 4.1 mmoL/L (3.5-5.1); Sodium 140 mmol/L (136-145)
[2024-11-27 09:35] LABS: Blood Urea Nitrogen 24 mg/dl (7-17); Estimated Glomerular Filt Rate 85 ml/min (>60); GFR (African American) 103 ML/MIN (>60)
[2024-11-27 09:36] LABS: Alanine Aminotransferase 32 U/L (12-78); Albumin/Globulin Ratio 1.7 (1.1-1.8); Alkaline Phosphatase 78 U/L (38-126); Anion Gap 9.1 mEq/L (5-15); Aspartate Amino Transferase 27 U/L (14-36); Bilirubin,Total 0.5 mg/dl (0.2-1.3); Calcium 9.1 mg/dl (8.4-10.2); Carbon Dioxide 30 mmol/L (22.0-30.0); Chol/HDL Ratio 3.2 (1-3.5); Cholesterol 187 mg/dl (140-200); Globulin 2.6 g/dL (1.3-3.2); Glucose 109 mg/dl (74-100); HDL Cholesterol 59 mg/dl (40-60); Total Protein,Serum 6.9 g/dl (6.3-8.2); Triglycerides 139 mg/dl (30-150); VLDL Cholesterol 28 mg/dL (0-40)
[2024-11-27 09:47] LABS: Direct LDL Cholesterol 102.41 mg/dL (100-129)
== END 2024-11-27 23:59 | disposition home or self-care (01) ==
LOC: LAB 08:42
PROVIDERS: PCP Internal Medicine; Visit Provider Internal Medicine
DX: Z00.00 Encounter for general adult medical examination without abnormal findings (principal); Z13.1 Encounter for screening for diabetes mellitus; Z13.220 Encounter for screening for lipoid disorders
CPT/HCPCS: 36415; 80053; 80061; 83036

== ENCOUNTER 2024-12-11 10:31 | Outpatient (CLI) | payer OTHER, SELFPAY ==
--- NOTE | 2024-12-11 10:33 | XR_ITS ---
FINAL REPORT CLINICAL HISTORY: Knee pain left knee pain x 3 month no surgery FINDINGS: AP and lateral views of the left knee were obtained. There is no prior exam for comparison. There is no acute fracture or dislocation. There is mild degenerative joint disease. There is no joint effusion. Soft tissues are normal. IMPRESSION: Mild degenerative joint disease without acute abnormality. Reviewed, Interpreted and Dictated by Jessica Arndt MD Transcribed by Talia Frye Authenticated and [facility]
[2024-12-11 15:17] LABS: Creatinine,Urine Random 30 mg/dL (Not Estab.); Microalbumin < 6.000 mg/L (0-16.7)
== END 2024-12-11 23:59 | disposition home or self-care (01) ==
LOC: RAD 10:31
PROVIDERS: PCP Internal Medicine; Visit Provider Internal Medicine
DX: M25.562 Pain in left knee (principal); E11.9 Type 2 diabetes mellitus without complications; Z79.85 Long-term (current) use of injectable non-insulin antidiabetic drugs; M17.12 Unilateral primary osteoarthritis, left knee
CPT/HCPCS: 73560; 82043; 82570

== ENCOUNTER 2024-12-27 10:14 | Outpatient (CLI) | payer OTHER, SELFPAY ==
--- NOTE | 2024-12-27 10:30 | MM_ITS ---
PROCEDURE INFORMATION: Exam: MG Bilateral Screening 3D Mammography Exam date and time: 12/27/2024 10:33 AM Age: 64 years old Clinical indication: Screening exam. TECHNIQUE: Imaging protocol: Bilateral Screening tomosynthesis and 2D mammography including computer-aided detection (CAD) when performed. COMPARISON: MG MM MAMMO DIGITAL THANH SCREEN BILAT 11/02/2021 12:10 PM FINDINGS: MAMMOGRAPHY: Breast composition: There are scattered areas of fibroglandular density. Mass: No suspicious masses. Architectural distortion: None. Calcifications: No suspicious calcifications. Asymmetric density: None. Skin thickening: None. Axillary adenopathy: None. IMPRESSION: No mammographic evidence of malignancy. Annual screening is recommended unless otherwise clinically indicated. ASSESSMENT: BI-RADS Category 1: Negative.
== END 2024-12-27 23:59 | disposition home or self-care (01) ==
LOC: RAD 10:15
PROVIDERS: PCP Internal Medicine; Visit Provider Internal Medicine
DX: Z12.31 Encounter for screening mammogram for malignant neoplasm of breast (principal)
CPT/HCPCS: 77063; 77067

== ENCOUNTER 2025-04-22 12:37 | Outpatient (RCR) | payer OTHER, SELFPAY | END 2025-04-22 23:59 | disposition home or self-care (01) | LOC: PT 12:37 | PROVIDERS: Visit Provider Physician Assistant | DX: M17.12 Unilateral primary osteoarthritis, left knee (principal) | CPT/HCPCS: 97162 ==

== ENCOUNTER 2025-06-25 09:30 | Outpatient (CLI) | payer OTHER, SELFPAY ==
[2025-06-25 09:58] LABS: Hematocrit 43.7 % (37.0-47.0); Hemoglobin 14.5 g/dL (12.2-16.2); Immature Granulocytes % 0.2 %; Mean Corpuscular HGB Conc 33.2 g/dL (31.8-35.4); Mean Corpuscular Hemoglobin 32.1 pg (27.0-31.2); Mean Corpuscular Volume 96.7 fl (81-99); Nucleated Red Blood Cells % 0 %; Platelet Count 324 K/mm3 (142-424); Red Blood Count 4.52 M/mm3 (4.20-5.40); Red Cell Distribution Width-SD 46.1 fL; White Blood Count 9.1 K/mm3 (4.8-10.8)
--- OUTSIDE RECORDS SUMMARY | 2025-06-25 10:01 | XMS_ITS | Clinical Summary ---
Author Organization [facility] Address [address] [place] [address] Phone Care Team Providers Care Car Hop Name Role Phone Unavailable Primary Care Provider [...] Date Last Done Comments Annual Wellness Exam 1963 Hepatitis C Screening 1980 DTaP/TDaP/Td (1 - Tdap) 1981 Cologuard 11/05/2007 Colon Cancer Screening 11/05/2007 Colonoscopy 11/05/2007 FIT 11/05/2007 Sigmoidoscopy 11/05/2007 Virtual Colonography 11/05/2007 Pneumococcal Vaccine 50+ (1 of 1 - PCV) 2012 Zoster (1 of 2) 2012 COVID-19 Vaccine (2024-2 6 season) 2025 Influenza Vaccine (#1) 2025 Hepatitis B Vaccine Aged Out No longe r eligible based on patient's age to complete this topic Meningococcal B Vaccine Aged Out No l onger eligible based on patient's age to complete this topic
[2025-06-25 10:34] LABS: Alanine Aminotransferase 35 U/L (12-78); Albumin Level 3.7 g/dl (3.5-5.0); Albumin/Globulin Ratio 1.0 (1.1-1.8); Alkaline Phosphatase 93 U/L (38-126); Anion Gap 10.3 mEq/L (5-15); Aspartate Amino Transferase 33 U/L (14-36); Bilirubin,Total 0.6 mg/dl (0.2-1.3); Blood Urea Nitrogen 25 mg/dl (7-17); Calcium 9.3 mg/dl (8.4-10.2); Carbon Dioxide 26 mmol/L (22.0-30.0); Chloride 103 mmol/L (98-107); Creatinine,Serum 0.80 mg/dl (0.52-1.04); Estimated Glomerular Filt Rate 73 ml/min (>60); GFR (African American) 88 ML/MIN (>60); Globulin 3.7 g/dL (1.3-3.2); Glucose 152 mg/dl (74-100); Potassium 4.3 mmoL/L (3.5-5.1); Sodium 135 mmol/L (136-145); Total Protein,Serum 7.4 g/dl (6.3-8.2)
[2025-06-25 11:21] LABS: Vitamin B12 843 pg/mL (239-931)
[2025-06-25 12:07] LABS: Hemoglobin A1C 5.9 % (4.0-6.0)
== END 2025-06-25 23:59 | disposition home or self-care (01) ==
LOC: LAB 09:30
PROVIDERS: PCP Internal Medicine; Visit Provider Internal Medicine
DX: Z00.00 Encounter for general adult medical examination without abnormal findings (principal); Z13.1 Encounter for screening for diabetes mellitus; E11.9 Type 2 diabetes mellitus without complications; D64.9 Anemia, unspecified
CPT/HCPCS: 36415; 80053; 82607; 83036; 84207; 85025